=== PATIENT | male | born 1940 | race Caucasian/White ===

== ENCOUNTER 2016-09-13 12:00 | Inpatient (IN) | payer OTHER ==
--- NOTE | 2016-09-13 12:22 | EDPHY ---
H & P Stated Complaint: Sent here for further eval pleural effusion Time Seen by Provider: 09/13/16 12:20 HPI/ROS: CHIEF COMPLAINT: Pleural effusion on x-ray HISTORY OF PRESENT ILLNESS: 76-year-old male with no history of malignancy, no history of chronic pulmonary disease, saw his primary care provider this morning for complaints of 10 days of progressive dyspnea without chest pain. Started approximately 10 days ago with URI symptoms have by enlarged resolved however his dyspnea continues and is progressive. He is able to walk approximately 10 feet before taking a rest. No chest pain. No syncope or near syncope. No back or flank pain. No abdominal pain. No peripheral edema or discoloration. No fever or chills. PRIMARY CARE PROVIDER: Pedro REVIEW OF SYSTEMS: A ten point review of systems was performed and is negative with the exception of the items mentioned in the HPI PAST MEDICAL & SURGICAL HISTORY: No history of malignancy, chronic pulmonary disease, coronary artery disease. 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 SOCIAL HISTORY: Quit smoking 40 years ago PHYSICAL EXAM (Prior to examination, patient consented to physical exam, hands were washed and my usual and customary physical exam procedures followed) 1) GENERAL: Well-developed, well-nourished, alert and oriented. Appears to be in no acute distress. 2) HEAD: Normocephalic, atraumatic 3) HEENT: Pupils equal, round, reactive to light bilaterally. Sclera anicteric. Nasopharynx, oropharynx, clear, no lesions. Ears bilaterally with normal tympanic membranes. 4) NECK: Full range of motion, no meningeal signs. 5) LUNGS: Blunted lung sounds right lower lobe 6) HEART: Regular rate and rhythm, no murmur, no heave, no gallop. 7) ABDOMEN: No guarding, no rebound, no focal tenderness, negative McBurney's, negative Cummings's, negative Rovsing's, negative peritoneal sign, 8) MUSCULOSKELETAL: Moving all extremities, no focal areas of tenderness, no obvious trauma. No peripheral edema or discoloration. 9) BACK: No CVA tenderness, no midline vertebral tenderness, no fluctuance, no step-off, no obvious trauma, no visual or palpable abnormality. 10) SKIN: No rash, no petechiae. 11) Psychiatric: Patient is oriented X 3, there is no agitation. DIFFERENTIAL DIAGNOSIS: in no particular include but limited to malignancy, infectious etiology, pulmonary embolus - Personal History Current Tetanus Diphtheria and Acellular Pertussis (TDAP): Yes - Medical/Surgical History Other PMH: HTN, macular degeneration - Social History Smoking Status: Former smoker Constitutional: Initial Vital Signs Temperature (C) 36.9 C 09/13/16 12:05 Heart Rate 96 09/13/16 12:05 Respiratory Rate 18 09/13/16 12:05 Blood Pressure 129/79 H 09/13/16 12:05 O2 Sat (%) 89 L 09/13/16 12:05 O2 Delivery Mode Room Air O2 (L/minute) 4 Allergies/Adverse Reactions: No Known Allergies Allergy (Verified 09/13/16 12:15) Home Medications: Medication Instructions Recorded Aspirin [Aspirin 81mg (*)] 81 mg PO DAILY 09/13/16 Atorvastatin Calcium [Lipitor 40 40 mg PO 09/13/16 mg (*)] Hydrochlorothiazide [HCTZ (*)] 25 mg PO DAILY 09/13/16 Lisinopril [Zestril 10 mg (*)] 10 mg PO 09/13/16 Losartan Potassium [Cozaar 50 mg 50 mg PO 09/13/16 (*)] Medical Decision Making - Diagnostics Imaging: Chest, Two Views - September 13, 2016 at 1050 hours History: Dyspnea, J18.9, R09.02 Comparison: May 2009. Findings: Cardiac silhouette is within normal range. Opacification of 70% of the right hemithorax with a large right pleural effusion. Left lung is clear. No pneumothorax. Impression: 1. Large right pleural effusion. 2. Recommend CT chest with contrast enhancement for further evaluation. Findings and recommendations discussed with Dr. Katt Rodas on September 13, 2016 at 1106 hours. Final report concurs with initial preliminary interpretation. Dictated By: Marcio Mendez images reviewed by myself ED Course/Re-evaluation: 12:28 p.m.: Discussed case Dr. Ankit Valentino in the ER. Phone consultation with hospitalist Umm, admit to Dr. Arango. Will obtain CT and order thoracentesis from the emergency department 12:37 p.m.: Phone consultation with interventional radiologist Dr. Carpenter regarding thoracentesis Departure - Departure Disposition: [facility] Inpatient Acute Clinical Impression: Hypoxemia, Recurrent right pleural effusion Condition: Fair
[2016-09-13] MEDS ORDERED: IOPAMIDOL (ISOVUE 370) 100 ML BTL IV ONE (12:38)
[2016-09-13 12:52] LABS: % IMMATURE GRANULYOCYTES 0.3 % (0.0-1.1); ABSOLUTE IMMATURE GRANULOCYTES 0.03 10^3/uL (0.00-0.10); ADD DIFF? NO; ADD MORPH? NO; ADD SCAN? NO; ATYPICAL LYMPHOCYTE FLAG 0 (0-99); FRAGMENT RBC FLAG 0 (0-99); HEMATOCRIT 51.3 % (40.0-51.0); HEMOGLOBIN 17.4 g/dL (13.7-17.5); LEFT SHIFT FLG 0 (0-99); LIPEMIA HEMOLYSIS FLAG 90 (0-99); MEAN CELL HEMOGLOBIN CONCENTR. 33.9 g/dL (32.4-36.7); MEAN CELL VOLUME 85.5 fL (81.5-99.8); MEAN PLATELET VOLUME 10.8 fL (8.7-11.7); PLATELET CLUMPS FLAG 0 (0-99); PLATELET COUNT 232 10^3/uL (150-400); RED CELL DISTRIBUTION WIDTH 13.2 % (11.5-15.2)
--- NOTE | 2016-09-13 12:52 | CPEKG ---
Heart Rate: 90 RR Interval: 667 P-R Interval: 144 QRSD Interval: 152 QT Interval: 392 QTC Interval: 480 P Mccaulley: 76 QRS Mccaulley: -25 T Wave Mccaulley: 53 EKG Severity - ABNORMAL ECG - EKG Impression: SINUS RHYTHM EKG Impression: RBBB AND LAFB Electronically Signed By: Mary Lou Novoa 13-Sep-2016 23:17:54
[2016-09-13] MEDS ORDERED: NA BICARBONATE 50 MEQ/50 ML VIAL ONE (13:03)
[2016-09-13] MEDS ORDERED: LIDOCAINE 1% 30 ML SDV ONE (13:03)
[2016-09-13 13:10] LABS: ANION GAP 11 mEq/L (8-16); CALCIUM 9.9 mg/dL (8.5-10.4); CARBON DIOXIDE 30 mEq/l (22-31); CHLORIDE 98 mEq/L (97-110); CREATININE 0.9 mg/dL (0.7-1.3); GLOMERULAR FILTRATION RATE > 60; GLUCOSE 147 mg/dL (70-100); LACTATE DEHYDROGENASE 319 IU/L (313-618); POTASSIUM 3.4 mEq/L (3.5-5.2); SODIUM 139 mEq/L (134-144)
[2016-09-13 13:20] LABS: INR 0.99 (0.83-1.16); TROPONIN I < 0.012 ng/mL (0-0.034)
[2016-09-13 13:44] LABS: APTT 28.1 SEC (23.0-38.0)
[2016-09-13 15:45] LABS: LD, PLEURAL FLUID 1170 IU/L
[2016-09-13] MEDS ORDERED: oxyCODONE IR 5 MG TAB PO PRN (16:50)
[2016-09-13] MEDS ORDERED: ONDANSETRON 4 MG/2 ML VIAL IVP PRN (16:50)
[2016-09-13] MEDS ORDERED: ACETAMINOPHEN 325 MG TAB PO PRN (16:50)
[2016-09-13] MEDS ORDERED: PROTOCOL POTASSIUM 1 DOSE MISC PRN (16:51)
[2016-09-13] MEDS: AZITHROMYCIN IV 500 MG in D5W 250 ML IV SCH (17:24)
--- NOTE | 2016-09-13 17:24 | GHP ---
[f rep st] HISTORY AND PHYSICAL DATE OF ADMISSION: 09/13/2016 CHIEF COMPLAINT: Shortness of breath. HISTORY: The patient is a 76-year-old male, who has noticed shortness of breath for the last week a nd a half. Initially started as nasal congestion, then went into some chest congestion and has been going back and forth between these 2 sites. He has had minimal cough of clear, but mostly nonprodu ctive. No fever. Shortness of breath has continued to worsen, got quite severe prompting physician visit today. He is already feeling much better after getting thoracentesis straight from the [facility] en[facility] room. He denies any chest pain. He denies any weight loss. There have been no night sweats. PAST MEDICAL HISTORY: 1. 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 2. Hypertension. 3. Glaucoma. 4. Macular degeneration. PAST SURGICAL HISTORY: 1. Tonsillectomy. 2. Bilateral total knee arthroplasty. MEDICATIONS: Please see computer record for full detailed list. ALLERGIES: No known drug allergies. SOCIAL HISTORY: Quit smoking 40 years ago. He drinks 1 alcoholic beverage per night. He lives wit h his . He is retired from [employer]. REVIEW OF SYSTEMS: Complete review of systems obtained. Review of systems is negative regarding co nstitutional, HEENT, GI, pulmonary, cardiovascular, , hematology, skin, musculoskeletal, endocrine , psychiatric, except for positives as noted in the HPI. FAMILY HISTORY: Reviewed, noncontributory to presenting complaint. PHYSICAL EXAMINATION: GENERAL: Well-developed, well-nourished male, in no acute distress. VITAL S IGNS: Temperature is 36.9, pulse 96, blood pressure 129/79, saturating 98% on 4 L. EYES: Normal c onjunctivae. Pupils equal and reactive to light. ENT: Normal ears and nose. Hearing intact. Nor mal teeth. Oropharynx moist. NECK: Trachea midline. No thyromegaly. CHEST: Normal respiratory effort. Lungs are clear to auscultation bilaterally. CARDIOVASCULAR SYSTEM: Regular rate and rhyt hm. No murmur. No lower extremity edema. ABDOMEN: Soft, nontender. No hepatosplenomegaly. SKIN : Warm, dry, intact. No rash. MUSCULOSKELETAL: No cyanosis or clubbing. Strength 5/5 in upper a nd lower extremities. NEUROLOGIC: Cranial nerves intact. Normal sensation to light touch. PSYCHI ATRIC: Alert and oriented x3. Normal mood and affect. Normal judgment and insight. Normal memory . LABS: White count 9.46, hematocrit 51.3, platelets 232. Sodium 139, potassium 3.4, chloride 98, bi carb 30, BUN 23, creatinine 0.9, glucose 197. Troponins negative. EKG viewed by me. My personal i nterpretation is normal sinus rhythm. Right bundle branch block. Chest x-ray shows a large right p leural effusion. CT angiogram of the chest shows no CT for PE, large right effusion. ASSESSMENT AND PLAN: 1. Large right-sided pleural effusion. This is concerning for a malignancy versus empyema due to u nderlying pneumonia. His very low pH may warrant a chest tube if he reaccumulates fluid. I have sp sparkle with Dr. Valerio and Pulmonary Medicine will see him in the morning. We will check a CT scan of the chest tomorrow morning post thoracentesis to see if we may get a better view of the underlying p arenchyma and also assess for any residual fluid. Cytology and culture are pending. 2. Hypertension. Will continue home medications. CODE STATUS: Full. ADMISSION STATUS: 1. Will admit to inpatient. As he is complex, anticipate greater than 2 midnights for diagnosis an d stabilization. 2. DVT prophylaxis. Will initiate Lovenox once all possible procedures have been initiated. /[id number]/MODL
[2016-09-13] MEDS ORDERED: ATORVASTATIN CALCIUM 20 MG TAB PO SCH ×2 (18:00→18:45)
[2016-09-13 18:39] LABS: POTASSIUM 3.6 mEq/L (3.5-5.2)
[2016-09-13] MEDS: LOSARTAN POTASSIUM 50 MG TAB PO SCH (19:42)
[2016-09-13] MEDS ORDERED: POTASSIUM CL 10 MEQ TAB PO ONE (20:10)
[2016-09-13] MEDS ORDERED: LATANOPROST 0.005% 2.5 ML OPHT DROPS EACHEYE SCH (21:00)
[2016-09-14 05:46] LABS: % IMMATURE GRANULYOCYTES 0.3 % (0.0-1.1); ABSOLUTE IMMATURE GRANULOCYTES 0.03 10^3/uL (0.00-0.10); ADD DIFF? NO; ADD MORPH? NO; ADD SCAN? NO; ATYPICAL LYMPHOCYTE FLAG 0 (0-99); FRAGMENT RBC FLAG 0 (0-99); HEMOGLOBIN 16.5 g/dL (13.7-17.5); LEFT SHIFT FLG 0 (0-99); LIPEMIA HEMOLYSIS FLAG 80 (0-99); MEAN CELL HEMOGLOBIN 29.8 pg (27.9-34.1); MEAN CELL HEMOGLOBIN CONCENTR. 33.7 g/dL (32.4-36.7); MEAN CELL VOLUME 88.4 fL (81.5-99.8); MEAN PLATELET VOLUME 11.3 fL (8.7-11.7); PLATELET CLUMPS FLAG 0 (0-99); PLATELET COUNT 203 10^3/uL (150-400); RED BLOOD CELL COUNT 5.54 10^6/uL (4.40-6.38); RED CELL DISTRIBUTION WIDTH 13.2 % (11.5-15.2)
[2016-09-14 06:07] LABS: ALANINE AMINOTRANSFERASE 30 IU/L (21-72); ALBUMIN 3.1 g/dL (3.5-5.0); ALKALINE PHOSPHATASE 68 IU/L (38-126); ANION GAP 10 mEq/L (8-16); ASPARTATE AMINOTRANSFERASE 26 IU/L (17-59); BILIRUBIN,TOTAL 0.8 mg/dL (0.1-1.4); BILIRUBIN-CONJUGATED 0.4 mg/dL (0.0-0.5); BILIRUBIN-UNCONJUGATED 0.4 mg/dL (0.0-1.1); CALCIUM 9.2 mg/dL (8.5-10.4); CARBON DIOXIDE 29 mEq/l (22-31); CHLORIDE 100 mEq/L (97-110); CREATININE 0.9 mg/dL (0.7-1.3); GLOMERULAR FILTRATION RATE > 60; GLUCOSE 102 mg/dL (70-100); LACTATE DEHYDROGENASE 401 IU/L (313-618); SODIUM 139 mEq/L (134-144); TOTAL PROTEIN 5.6 g/dL (6.3-8.2)
[2016-09-14] MEDS ORDERED: amLODIPine BESYLATE 5 MG TAB PO SCH (09:00)
[2016-09-14] MEDS ORDERED: HYDROCHLOROTHIAZIDE 25 MG TAB PO SCH (09:00)
[2016-09-14] MEDS ORDERED: ENOXAPARIN 40 MG/0.4 ML SYR SC SCH (09:00)
[2016-09-14] MEDS: LOSARTAN POTASSIUM 50 MG TAB PO SCH (09:09)
[2016-09-14] MEDS: AZITHROMYCIN IV 500 MG in D5W 250 ML IV SCH (09:53)
[2016-09-14 12:19] VITALS: BP 92/57; PULSE 86; RESP 16; TEMP 97.8
--- NOTE | 2016-09-14 13:55 | HOSPPROG ---
Hospitalist Progress Note Assessment/Plan: # acute large right pleural effusion- etiology at this time unclear possible parapneumonic versus malignant- exudative on light's criteria pl protein 4.1 status post large volume thoracentesis on admission- symptoms markedly improved chest x-ray( personally reviewed and interpreted) large right-sided effusion - the continue empiric antibiotic - pleural fluid cytology pending - the repeat CT plan for today - pulmonary consulted on admission # acute hypoxic respiratory failure secondary to pleural effusion and possible underlying intra parenchymal process oxygen saturations 90% on 2 L - empiric treatment of pneumonia - repeat imaging today # hypertension- SBP 90's - hold HCTZ and losartan for now # proph - lovenox # diet - regular # disposition - > 2MN as requiring diagnostic workup for pleural effusion and IV antibiotics I have discussed the case with RN- plan for repeat CT this afternoon Subjective: breathing much more comfortably Objective: Vital Signs Temp Pulse Resp BP Pulse Ox 36.6 C 86 16 92/57 L 90 L 09/14/16 12:00 09/14/16 12:00 09/14/16 12:00 09/14/16 12:00 09/14/16 12:00 Microbiology 09/13/16 14:05 Gram Stain - Final Thoracic Fluid - Aspirate Laboratory Results 09/14/16 04:23 09/14/16 04:23 09/13/16 09/14/16 09/15/16 05:59 05:59 05:59 Intake Total 550 Balance 550 PT 13.0 SEC (12.0-15.0) 09/13/16 12:40 INR 0.99 (0.83-1.16) 09/13/16 12:40 - Physical Exam Constitutional: appears nourished Eyes: anicteric sclera Ears, Nose, Mouth, Throat: moist mucous membranes Cardiovascular: regular rate and rhythym Respiratory: no respiratory distress, reduced air movement Gastrointestinal: normoactive bowel sounds, soft, non-tender abdomen Genitourinary: no bladder fullness Skin: warm Musculoskeletal: No asymmetric calves Neurologic: AAOx3 Psychiatric: interacting appropriately, not anxious Lymph, Heme, Immunologic: no cervical LAD ICD10 Worksheet Patient Problems: Problems Problem Status Onset Hypoxemia Acute Recurrent right pleural effusion Acute
[2016-09-14 14:24] VITALS: O2SAT 85
--- NOTE | 2016-09-14 18:57 | GDS ---
[f rep st] DISCHARGE SUMMARY DISCHARGE DIAGNOSES: Include: 1. Acute large right pleural effusion. 2. Acute hypoxic respiratory failure, secondary to pleural effusion. 3. Hypertension. HISTORY OF PRESENT ILLNESS: This is a 76-year-old male, with limited past medical history, who pres ents to the emergency department with severe shortness of breath. For details of patient's initial presentation, please see the history and physical dated 09/13/2016. CONSULTATIVE SERVICES: Include Pulmonary Critical Care. PROCEDURES: 1. On 09/13/2016, patient had a large volume thoracentesis, ultrasound guided. 2. 09/14/2016, patient had a repeat CT chest imaging that shows affective drainage of his pleural e ffusion. Mild residual loculated effusions on the right, with persistent atelectasis. No obvious n odules or infiltrates are visualized. HOSPITAL COURSE: By issue: 1. Acute large volume right-sided pleural effusion. Etiology at this time is unclear. Suspected t o be either parapneumonic, as transudative on pleural fluid analysis, or potentially malignant. Cyt ology has been sent. Repeat imaging does not further clarify the possible etiology of this effusion at this time. The patient's oxygen saturations are mid 90s on 2 L of oxygen. After discussion wit h Dr. Valerio, patient will be discharged to complete a full course of antibiotics for community-acqui red pneumonia, and will follow in the Pulmonary Clinic in 3-4 weeks after repeat chest x-ray imaging for discussion of cytology analysis and clinical response to therapy. The patient will be discharg ed on 2 L of supplemental oxygen prior to discharge. 2. Acute hypoxic respiratory failure, secondary to pleural effusion. Again, patient is empirically being treated for community-acquired pneumonia. He has been instructed to follow with his [facility] primary care provider after completion of his antibiotic course for oxygen saturation checks. It is possible that he can discontinue oxygen supplementation prior to his pulmonary appointment. 3. Hypertension. Patient's blood pressures did fluctuate a bit during his hospital stay. He was g iven his normal home medications with adequate control. We will continue these, as long as his oral intake is normal in the outpatient setting. DISCHARGE MEDICATIONS: Please reference medication reconciliation printed on 09/14/2016. PENDING STUDIES: At the time of this dictation include: 1. Blood cultures drawn 09/13/2016, which are pending, no growth to date. 2. 09/13/2016, thoracic fluid aspirate was sent for culture, also pending, no growth to date. FOLLOWUP APPOINTMENTS: Include: 1. With Dr. Mario Valerio in 3-4 weeks after chest x-ray imaging for cytology results and clinical foll owup. 2. With primary care in the next 7-10 days for post disposition followup, and oxygen saturation natalia cks post completion of his antibiotic therapy. I spent greater than 30 minutes in the planning and coordination of this discharge. /[id number]/MODL
--- NOTE | 2016-09-14 20:42 | GCON ---
[f rep st] CONSULTATION PULMONARY CONSULTATION DATE OF CONSULTATION: 09/14/2016 The patient is a 76-year-old male, without much past medical history, who has complained of dyspnea over the last 7-10 days. He started with some nasal congestion and then had some chest congestion, but denies any significant cough and no fever. His breathing got worse over the course of that yesica od of time and he saw a physician yesterday, was sent to the emergency department where a chest x-ra y showed a very large pleural effusion. CT scan was subsequently done that showed no evidence of pu lmonary embolism and he underwent a thoracentesis that revealed a pH of 7.0, with a protein of 4.1, and LDH of 1170, and a glucose of 121. It was pink-looking fluid as it was removed. The red cell c ount was only 9720 and the white cell count was 6173, with a differential of 59% neutrophils, 36% ly mphocytes. He denies any unanticipated weight loss. His appetite has been normal. There are no malignancies t hat run in his family history. He has not been exposed to asbestos before, but he did do research w ith other types of potentially respiratory fibers, having done some work with [employer] in the is past, but felt that he had not been exposed to any fibers small enough to get into his lungs. He does not have any cardiac history. There is no recent trauma. He has never had any invasion o f his pleural space. He does admit to osteoarthritis, but not rheumatoid arthritis, and has no know n connective tissue disease. REVIEW OF SYSTEMS: Otherwise, review of systems is negative. PAST MEDICAL HISTORY: Includes: 1. Legionnaires disease presumptively in 1970. 2. Hypertension. 3. Glaucoma. 4. Macular degeneration. PAST SURGICAL HISTORY: Includes tonsillectomy, bilateral total knee arthroplasties. SOCIAL HISTORY: He was a significant smoker, but quit some 40 years ago. Does have minor alcohol, but no alcohol-related illnesses, and no recreational drugs. FAMILY HISTORY: Noncontributory at this time. CURRENT MEDICATIONS: Include Tylenol, Norvasc, Lipitor, Zithromax, ceftriaxone, Lovenox, hydrochlor othiazide, Cozaar, morphine, oxycodone. PHYSICAL EXAMINATION: VITAL SIGNS: His blood pressure is 122/79, heart rate of 92, respirations 18 , oxygen saturation was 85% on room air, 91% on 1 L. GENERAL: He was awake and alert, very pleasan t man in no apparent distress, able to speak in full sentences without using accessory muscles for b reathing. HEENT: Pupils equally round, reactive to light. Nonicteric and noninjected. Mucous mem branes are moist without erythema or exudate. NECK: Supple without adenopathy. There is no jugula r vein distention. PULMONARY: Breath sounds were remarkably clear to auscultation. I do not detec t any wheezes or pleural rubs. HEART: Regular rate and rhythm without murmur, rub, or gallop. ABD OMEN: Soft, nontender, nondistended, without hepatosplenomegaly. EXTREMITIES: Showed no clubbing, cyanosis, or edema. NEUROLOGIC: Nonfocal, including cranial nerves and deep tendon reflexes. SKI N: Warm and dry without evidence of rash. OBJECTIVE DATA: Includes a CT scan, as described above. There is no significant adenopathy or obst ructing masses that could be seen. His post thoracentesis CT scan showed areas of small loculation in the periphery, but no thickened pleura, no obvious masses. There was still some minor atelectasi s, particularly in the medial part of the right lower lobe, but strong air bronchograms in this carine on. His white count was 9.5, with hematocrit of 49; it was 51 when he came in. Platelets of 203. Basic metabolic panel was normal. Serum total protein was 5.6, serum total LDH was [address] eural cytology is still pending at this time. Flu was negative. ASSESSMENT/PLAN: Idiopathic pleural effusion with a low pH of 7.0. The differential here does incl ude a malignancy, but also would include some connective tissue disease, such as lupus or rheumatoid arthritis. At this point, I think he is otherwise stable to go home and he can see me back in [facility] t a month, and we will follow up on the cytology and repeat a chest x-ray at that time to see if it reaccumulates. Most importantly, I do not believe this is an empyema, though treatment for a commun ity-acquired pneumonia is certainly reasonable, and finishing a course of antibiotics I think makes sense, though I do not believe that prolonged antibiotics are required at this time. I discussed this in great detail with the patient, as well as Dr. Thurston. /[id number]/MODL
[2016-09-15] MEDS ORDERED: ENOXAPARIN 40 MG/0.4 ML SYR SC SCH (09:00)
== END 2016-09-14 18:16 | disposition home or self-care (01) | DRG 186 ==
LOC: EDSTATUS 12:00 → F3E 16:43
PROVIDERS: ADMIT Hospitalist; ATTEND Hospitalist
PROC: 0W993ZZ Drainage of Right Pleural Cavity, Percutaneous Approach (ICD-10-PCS; principal; 2016-09-13)
DX: J90 Pleural effusion, not elsewhere classified (principal); J96.01 Acute respiratory failure with hypoxia; I10 Essential (primary) hypertension; Z87.891 Personal history of nicotine dependence; Z96.653 Presence of artificial knee joint, bilateral
CPT/HCPCS: 71020-PO; J0456; J0696; Q9967

== ENCOUNTER 2016-10-01 08:40 | Inpatient (IN) | payer OTHER ==
--- NOTE | 2016-10-01 08:49 | EDPHY ---
H & P HPI/ROS: CHIEF COMPLAINT: Shortness of breath. HISTORY OF PRESENT ILLNESS: The patient is a 76-year-old male with a history of hypertension and right pleural effusion who presents with shortness of breath. He was admitted 09/13/2016 for right pleural effusion. [place] better after thorascentesis and was discharged home. Onset of recurrent SOB 2 days ago. He is now having difficulty walking from his bedroom to the bathroom because of SOB. Associated with generalized weakness and rapid HR. He denies dizziness, lightheadedness, chest pain, or other complaints. No cough or fever. He has no history of atrial fibrillation or atrial flutter. REVIEW OF SYSTEMS: A complete 10-point review of systems was performed and is negative except for those items mentioned in the HPI. Past Medical/Surgical History: Hypertension, macular degeneration, bilateral knee replacements. Social History: Former smoker. Smoking Status: Former smoker Physical Exam: General Appearance: Alert, pleasant, on oxygen, not tachypneic Eyes: Pupils equal and round, no conjunctival pallor or injection ENT, Mouth: Mucous membranes moist Neck: Normal inspection Respiratory: decreased BS on right Cardiovascular: Regular tachycardia Gastrointestinal: Abdomen is soft and non-tender Neurological: A&O, nonfocal exam Skin: Warm and dry, no rash Extremities: normal inspection, no tenderness Psychiatric: Mood and affect normal Constitutional: Initial Vital Signs Temperature (C) 36.8 C 10/01/16 08:43 Heart Rate 150 H 10/01/16 08:43 Respiratory Rate 22 H 10/01/16 08:43 Blood Pressure 140/104 H 10/01/16 08:43 O2 Sat (%) 85 L 10/01/16 08:43 O2 Delivery Mode Nasal Cannula O2 (L/minute) 5 Allergies/Adverse Reactions: No Known Allergies Allergy (Verified 10/01/16 08:40) Home Medications: Medication Instructions Recorded Amlodipine Besylate [Norvasc] 5 mg PO HS 09/13/16 Aspirin [Aspirin 81mg (*)] 81 mg PO HS 09/13/16 Atorvastatin Calcium [Lipitor 20 20 mg PO HS 09/13/16 mg (*)] C/E/Zn/Cu/OM3/DHA/EPA/LUT/ZEAX 1 each PO BID 09/13/16 [Preservision Areds 2 Softgel] Hydrochlorothiazide [HCTZ (*)] 25 mg PO DAILY 09/13/16 Latanoprost 0.005% [Xalatan 0.005% 1 drops EACHEYE HS 09/13/16 (*)] Losartan Potassium [Cozaar 50 mg 50 mg PO BID 09/13/16 (*)] Herbals/Supplements -Info Only 1 each PO DAILY 10/01/16 [place]-3 Fatty Acids [Fish Oil 1000 1,000 mg PO DAILY 10/01/16 mg (*)] Medical Decision Making - Diagnostics EKG Interpretation: EKG interpreted by me reveals SVT, rate 150. Imaging: Imaging Impressions Chest X-Ray 10/01/16 08:51 Impression: 1. Moderate to large right pleural effusion has reaccumulated with adjacent atelectasis. ED Course/Re-evaluation: 76-year-old male with a history of hypertension and recent right-sided pleural effusion presents today to the ED for 2 days of shortness of breath. He was discharged 09/14 after right-sided pleural effusion and acute respiratory failure. He had a thoracentesis in the hospital and had 2.5 liters of fluid drained. On arrival his heart rate is 150. An EKG was ordered that shows supraventricular tachycardia. Chest x-ray obtained. An IV was established and labs ordered. compliance monitor placed. 0920: 6mg IV Adenosine administered. compliance monitor reveals probable Aflutter. 12mg IV adenosine administered. His heart rate fell to 60 and revealed atrial flutter before returning to 150. 10mg IV Diltiazem administered. Feels much better after IV Diltiazem; HR 110-120. Patient to have chest x-ray taken now. I independently reviewed the patient's chest x-ray on the PACS system. My interpretation: Large right pleural effusion. Please see Imaging section for radiologist report. Ultrasound-guided thoracentesis ordered. Prior pleural fluid pathology reviewed and reveals atypical reactive cells. 2139: Consulted with Kate Mccullough, hospitalist. She accepts admission for Dr. Sauceda. I reviewed the patient's laboratory studies. D-dimer is markedly elevated at 5.55. The patient last had a chest CT 09/14/2016. I reviewed the results of this study. 1003: Consulted with Kate Mccullough regarding d-dimer. Likely secondary to pleural effusion; r/o PE. Pt will undergo thoracentesis 1st and then will proceed with CT pulmonary angiogram. Pt went directly to the floor after thoracentesis, so no CT scan performed. I spent a total of 40 minutes of critical care time including but not limited to obtaining history, performing a physical exam, bedside monitoring of interventions, collecting and interpreting tests and discussion with consultants but not including time spent performing procedures. Differential Diagnosis: The differential diagnosis for the patient's shortness of breath and hypoxemia included but was not limited to pneumonia, myocardial infarction, acute mountain sickness, high altitude pulmonary edema, congestive heart failure, and pulmonary embolus. - Data Points Laboratory Results: Laboratory Results 10/01/16 09:16 10/01/16 09:16 10/01/16 10/01/16 10/01/16 09:16 09:16 09:16 WBC 8.48 10^3/uL 10^3/uL (3.80-9.50) RBC 5.73 10^6/uL 10^6/uL (4.40-6.38) Hgb 16.8 g/dL g/dL (13.7-17.5) Hct 50.6 % % (40.0-51.0) MCV 88.3 fL fL (81.5-99.8) MCH 29.3 pg pg (27.9-34.1) MCHC 33.2 g/dL g/dL (32.4-36.7) RDW 13.0 % % (11.5-15.2) Plt Count 442 10^3/uL H 10^3/uL (150-400) MPV 10.4 fL fL (8.7-11.7) Neut % (Auto) 72.3 % % (39.3-74.2) Lymph % (Auto) 17.3 % % (15.0-45.0) [place] % (Auto) 7.3 % % (4.5-13.0) Eos % (Auto) 2.1 % % (0.6-7.6) Baso % (Auto) 0.8 % % (0.3-1.7) Nucleat RBC Rel Count 0.0 % % (0.0-0.2) Absolute Neuts (auto) 6.12 10^3/uL 10^3/uL (1.70-6.50) Absolute Lymphs (auto) 1.47 10^3/uL 10^3/uL (1.00-3.00) Absolute Monos (auto) 0.62 10^3/uL 10^3/uL (0.30-0.80) Absolute Eos (auto) 0.18 10^3/uL 10^3/uL (0.03-0.40) Absolute Basos (auto) 0.07 10^3/uL 10^3/uL (0.02-0.10) Absolute Nucleated RBC 0.00 10^3/uL 10^3/uL (0-0.01) Immature Gran % 0.2 % % (0.0-1.1) Immature Gran # 0.02 10^3/uL 10^3/uL (0.00-0.10) PT 13.3 SEC SEC (12.0-15.0) INR 1.02 (0.83-1.16) APTT 27.5 SEC SEC (23.0-38.0) D-Dimer 5.55 ug/mLFEU H ug/mLFEU (0.00-0.50) Sodium 138 mEq/L mEq/L (134-144) Potassium 3.7 mEq/L mEq/L (3.5-5.2) Chloride 98 mEq/L mEq/L (97-110) Carbon Dioxide 31 mEq/l mEq/l (22-31) Anion Gap 9 mEq/L mEq/L (8-16) BUN 17 mg/dL mg/dL (7-23) Creatinine 0.9 mg/dL mg/dL (0.7-1.3) Estimated GFR > 60 Glucose 222 mg/dL H mg/dL (70-100) Calcium 9.5 mg/dL mg/dL (8.5-10.4) Troponin I < 0.012 ng/mL ng/mL (0-0.034) NT-Pro-B Natriuret Pep 375 pg/mL pg/mL (0-450) Medications Given: Discontinued Medications Adenosine (Adenosine) 6 mg IVP EDNOW ONE Stop: 10/01/16 09:16 Last Admin: 10/01/16 09:20 Dose: 6 mg Adenosine (Adenosine) 12 mg IVP EDNOW ONE Stop: 10/01/16 10:01 Last Admin: 10/01/16 09:25 Dose: 12 mg Diltiazem HCl (Cardizem 25 Mg/5 Ml Vial) 10 mg IVP EDNOW ONE Stop: 10/01/16 09:29 Last Admin: 10/01/16 09:30 Dose: 10 mg Diltiazem HCl 125 mg/ Dextrose 125 mls @ 0 mls/hr IV EDNOW ONE; As Directed PRN Reason: Protocol Stop: 10/01/16 09:29 Last Admin: 10/01/16 09:57 Dose: 125 mls Departure - Departure Disposition: [facility] Inpatient Acute Clinical Impression: Pleural effusion, right Atrial flutter Qualifiers: Atrial flutter type: unspecified Qualified Code(s): I48.92 - Unspecified atrial flutter Condition: Fair Report Scribed for: Nuvia Brewster Report Scribed by: Elian Westfall Date of Report: 10/01/16 Time of Report: 08:48 Physician Review and Approval Statement: 10/01/16 08:49 Portions of this note were transcribed by a medical staff assistant. I personally performed a history, physical exam, medical decision making, and confirmed accuracy of information the transcribed note.
--- NOTE | 2016-10-01 08:57 | CPEKG ---
Heart Rate: 149 RR Interval: 403 P-R Interval: 56 QRSD Interval: 142 QT Interval: 332 QTC Interval: 523 P [place]: 0 QRS [place]: 6 T Wave [place]: 41 EKG Severity - ABNORMAL ECG - EKG Impression: Atrial flutter EKG Impression: RIGHT BUNDLE BRANCH BLOCK Electronically Signed By: Nuvia Brewster 01-Oct-2016 13:42:52
[2016-10-01] MEDS ORDERED: ADENOSINE 6 MG/2 ML VIAL ONE (09:15)
[2016-10-01] MEDS ORDERED: ADENOSINE 6 MG/2 ML VIAL IVP ONE ×2 (09:15→10:00)
[2016-10-01 09:24] LABS: % IMMATURE GRANULYOCYTES 0.2 % (0.0-1.1); ABSOLUTE IMMATURE GRANULOCYTES 0.02 10^3/uL (0.00-0.10); ADD DIFF? NO; ADD MORPH? NO; ADD SCAN? NO; ATYPICAL LYMPHOCYTE FLAG 0 (0-99); FRAGMENT RBC FLAG 0 (0-99); HEMATOCRIT 50.6 % (40.0-51.0); HEMOGLOBIN 16.8 g/dL (13.7-17.5); LEFT SHIFT FLG 0 (0-99); LIPEMIA HEMOLYSIS FLAG 80 (0-99); MEAN CELL HEMOGLOBIN 29.3 pg (27.9-34.1); MEAN CELL HEMOGLOBIN CONCENTR. 33.2 g/dL (32.4-36.7); MEAN CELL VOLUME 88.3 fL (81.5-99.8); MEAN PLATELET VOLUME 10.4 fL (8.7-11.7); PLATELET CLUMPS FLAG 0 (0-99); PLATELET COUNT 442 10^3/uL (150-400); RED BLOOD CELL COUNT 5.73 10^6/uL (4.40-6.38)
[2016-10-01] MEDS ORDERED: DILTIAZEM 25 MG/5 ML VIAL IVP ONE ×2 (09:27→09:28)
[2016-10-01] MEDS ORDERED: DILTIAZEM 125 MG in D5W 125 ML IV ONE (09:28)
[2016-10-01 09:41] LABS: ANION GAP 9 mEq/L (8-16); CALCIUM 9.5 mg/dL (8.5-10.4); CARBON DIOXIDE 31 mEq/l (22-31); CHLORIDE 98 mEq/L (97-110); CREATININE 0.9 mg/dL (0.7-1.3); GLOMERULAR FILTRATION RATE > 60; GLUCOSE 222 mg/dL (70-100); POTASSIUM 3.7 mEq/L (3.5-5.2); SODIUM 138 mEq/L (134-144)
[2016-10-01 09:54] LABS: TROPONIN I < 0.012 ng/mL (0-0.034)
[2016-10-01 10:24] LABS: INR 1.02 (0.83-1.16); PROTIME(PATIENT) 13.3 SEC (12.0-15.0)
[2016-10-01 10:25] LABS: APTT 27.5 SEC (23.0-38.0)
[2016-10-01] MEDS ORDERED: ONDANSETRON DISINTEGRATING 4 MG TAB PO PRN (12:51)
[2016-10-01] MEDS ORDERED: ONDANSETRON 4 MG/2 ML VIAL IVP PRN (12:51)
--- NOTE | 2016-10-01 14:08 | CPEKG ---
Heart Rate: 99 RR Interval: 606 QRSD Interval: 148 QT Interval: 412 QTC Interval: 529 QRS [place]: -51 T Wave [place]: 24 EKG Severity - ABNORMAL ECG - EKG Impression: A-FLUTTER W/ PREDOM 3:1 AV BLOCK, A-RATE 300 EKG Impression: RBBB AND LAFB EKG Impression: PROBABLE ANTEROLATERAL INFARCT, OLD EKG Impression: VENTRICULAR RATES HAVE SLOWED IN COMPARISON TO PRIOR Electronically Signed By: Rj Nair 03-Oct-2016 00:50:29
--- NOTE | 2016-10-01 14:14 | GHP ---
[f rep st] HISTORY AND PHYSICAL DATE OF ADMISSION: 10/01/2016 The patient is a pleasant 76-year-old gentleman with a past history of hypertension and glaucoma as well as an admission at the end of August for right-sided pleural effusion. At that time, he had a C TA that was negative for pulmonary embolism, although it was done while he still had a large right p leural effusion limiting its diagnostic ability. He also had a chest CT following drainage showing a residual loculated effusion on the right and persistent atelectasis. His pleural fluid at that ti me had negative cytology for malignancy and is consistent with inflammatory or exudative process. The patient was discharged home with a course of antibiotics for community-acquired pneumonia and he returns today with increased shortness of breath. He has had no lower extremity edema. He has had cough productive of clear sputum. No hemoptysis. He has had no recent hospitalizations, surgeries or prolonged immobilizations such as travel. He takes no hormonal therapy. He has no family histo ry of VTE. In the emergency department, he was found to be tachycardic in the 150s in atrial flutter that becam e apparent with administration of adenosine. He was discharged on oxygen and he has continued to wear it. He has not had chest pain. He does not have a history of heart failure or heart failure symptoms. He does not have known malignancy and he has had up to date cancer screening, per his report. REVIEW OF SYSTEMS: Complete 10-point review of systems conducted negative except as noted in the HP I. PAST MEDICAL HISTORY: 1. Large right exudative pleural effusion of uncertain etiology. 2. 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 3. Hypertension. 4. Glaucoma. 5. Macular degeneration. 6. He has history of tonsillectomy and bilateral total knee arthroplasty. ALLERGIES: He has no known drug allergies. HOME MEDICATIONS: Aspirin, amlodipine, atorvastatin, PreserVision, hydrochlorothiazide, latanoprost , losartan, fish oil. SOCIAL HISTORY: He lives in [place]. He is retired information technology person. He smoked fo r about 10 years. Drinks alcohol 1 or 2 drinks daily. FAMILY HISTORY: Negative for VTE. PHYSICAL EXAM: VITAL SIGNS: Presenting vitals temp 36.8, blood pressure 140/104, pulse 150, breath ing 22 times a minute, 85% on 4 L. Currently, his pulse is in the low 100s, 94% on 5 L. GENERAL: No acute distress, lying flat. HEENT: Sclerae anicteric. Oropharynx clear. Mucous membranes mois t. NECK: Supple without lymphadenopathy, JVD. LUNGS: Clear to auscultation on the left. The rig ht shows diminished to absent breath sounds for the bottom 3/4 of his lung field. There is dullness to percussion throughout most of the right lung field. HEART: S1, S2 without murmurs. It is tach ycardic. ABDOMEN: Soft, nontender, nondistended. LOWER EXTREMITIES: Without edema. Calves are n ontender. SKIN: Without rash. NEUROLOGIC: Nonfocal. LABORATORY DATA: His white count 8.5, hematocrit 50, platelets are 442,000. D-dimer is 5.5. Coags are normal. Sodium 138, potassium 3.7, chloride 98, bicarb 31, BUN 17, creatinine 0.9, glucose 222 . Troponin less than 0.012. His BNP is 375. Pleural fluid study from his previous admission showe d a pH of 7.0, it is red cloudy with 6100 white cells, 9700 red cells, 59% lymphocytes. LDH is elev ated at 1170. He had a rheumatoid factor that is modestly elevated at 12.3 and an KURTIS screen that i s negative. He is influenza negative during a previous admission. Cytology was negative for malign edgar. Chest x-ray interpreted by me shows large right pleural effusion with only about 1/4 of the s uperior lung field available. His EKG interpreted by md shows sinus at 149 with normal axis. There is a right bundle branch block pattern. I reviewed his telemetry in the ER after administration of adenosine and it showed likely atrial flutter with atrial sawtooth rate at 300. I have discussed t he case with Dr. Kaitlynn Brewster. ASSESSMENT/PLAN: A 76-year-old gentleman with recurrent large right pleural effusion and atrial flu tter. 1. Large right pleural effusion. This certainly seems like a classic presentation of pulmonary emb olism. I think it is important to do a CTA after thoracentesis. Thoracentesis is scheduled for tod ay. a. Thoracentesis with pleural fluid studies including cytology. b. CTA of the chest after thoracentesis. c. Bilateral lower extremity Dopplers. d. If venous thromboembolism workup is negative, he needs a VATS with pleural biopsy. 2. Atrial flutter. This is likely secondary to his lung process. He is currently on a diltiazem d rip. We will order an echocardiogram and follow. 3. Hypoxia. This is attributable to his large right pleural effusion. 4. Question pulmonary embolus. See above. 5. Prophylaxis. Pharmacologic prophylaxis indicated. We will start tomorrow. 6. Hypertension. Continue his medications. 7. Glaucoma. Continue his medications. 8. Disposition: Inpatient status. /[id number]/MODL
--- NOTE | 2016-10-01 15:59 | ECHO ---
[id number] + + [id number] : : [place] [address] : : [phone] + Adult Echocardiographic Report + -------+ :Name: LUCAS LEA TStudy Date: 10/01/2016 01:23 PM : : Hospital Admission Number: [id number] Locati on: 211: :: 1940 Gender: Male Height: 71 in : :Age: 76 yrs Race: WH Weight: 225 lb : :Reason For Study: Recurrent large R pleural effusion/Atrial : :flutter BSA: 2.2 meter s2 : + -------+ MMode/2D Measurements \T\ Calculations IVSd: 0.61 cm LVIDd: 4.4 cm EDV(Teich): Ao root diam: LVPWd: 0.58 cm 86.1 ml 4.1 cm LA dimension: 4.8 cm LVLd ap4: 6.9 cm SV(MOD-sp4): EDV(MOD-sp4): 29.0 ml 48.0 ml LVLs ap4: 6.8 cm ESV(MOD-sp4): 19.0 ml EF(MOD-sp4): 60.4 % Normal Measurement Values: + + :LVIDd (3.5-5.7cm) IVSd (0.6-1.1cm) LVPWd (0.6-1.1cm) Aortic Root (2.0-3.7cm)Left Atrium (1.5-4.0cm): :LV Vol(d) (76-115ml) LV Vol(s) (29-48ml) Ejec Fraction (50-65%)PV Doroteo (0.6- 1.2m/s) TV Doroteo (0.4-1.0m/s) : :MV E Doroteo (0.8-1.0m/s)MV A [place] (0.3-1.0m/s)LVOT Dor[place] (0.7-1.2m/s) Asc Ao Doroteo ( 0.9-1.8m/s) : + + Doppler Measurements \T\ Calculations Ao V2 max: 99.1 cm/sec Ao max P.9 mmHg Left Ventricle The left ventricle is normal in size. There is normal left ventricular wall thickness. Ejection Fraction = 55-60%. No regional wall motion abnormalities noted. Right Ventricle The right ventricle is mildly dilated. Atria The left atrium is mildly dilated. Right atrial size is normal. The interatrial septum is intact with no evidence for an atrial septal defect. Mitral Valve Calcified mitral apparatus. There is no evidence of mitral valve prolapse. There is no mitral valve stenosis. There is mild mitral regurgitation. Tricuspid Valve Normal tricuspid valve. There is mild tricuspid regurgitation. Aortic Valve The aortic valve opens well. Mild AV calcification. There is no aortic stenosis. There is no aortic insufficiency. Pulmonic Valve The pulmonic valve is not well visualized. There is no pulmonic valvular regurgitation. Great Vessels The aortic root is normal size. Pericardium/Pleural There is no pericardial effusion. Left pleural effusion. Conclusion A complete two-dimensional transthoracic echocardiogram was performed (2D, M-mode, Doppler and color flow Doppler). Ejection Fraction = 55-60%. The left atrium is mildly dilated. Calcified mitral apparatus. There is mild mitral regurgitation. There is mild tricuspid regurgitation. Mild AV calcification. Left pleural effusion. Final Reading Physician: Jesus Ayala signed on 10/01/2016 03:58 PM Ordering Physician: Momo Sauceda Performed By: Alycia Daily RDCS
[2016-10-01] MEDS ORDERED: IOPAMIDOL (ISOVUE 370) 100 ML BTL IV ONE (18:26)
[2016-10-01 19:15] LABS: LD, PLEURAL FLUID 656 IU/L
[2016-10-01] MEDS: amLODIPine BESYLATE 5 MG TAB PO SCH (20:54)
[2016-10-01] MEDS: PRESERVISION AREDS2 FORMULA EYE VIT 1 EACH PO SCH (20:54)
[2016-10-01] MEDS: ATORVASTATIN CALCIUM 20 MG TAB PO SCH (20:54)
[2016-10-01] MEDS: LOSARTAN POTASSIUM 50 MG TAB PO SCH (20:54)
[2016-10-01] MEDS: LATANOPROST 0.005% 2.5 ML OPHT DROPS EACHEYE SCH (21:01)
[2016-10-02] MEDS ORDERED: DILTIAZEM 125 MG in D5W 125 ML IV SCH (04:00)
[2016-10-02 05:05] LABS: APTT 30.6 SEC (23.0-38.0); INR 1.08 (0.83-1.16); PROTIME(PATIENT) 13.9 SEC (12.0-15.0)
[2016-10-02 05:09] LABS: ANION GAP 8 mEq/L (8-16); CALCIUM 8.9 mg/dL (8.5-10.4); CARBON DIOXIDE 27 mEq/l (22-31); CHLORIDE 102 mEq/L (97-110); CREATININE 0.8 mg/dL (0.7-1.3); GLOMERULAR FILTRATION RATE > 60; GLUCOSE 93 mg/dL (70-100); POTASSIUM 4.1 mEq/L (3.5-5.2); SODIUM 137 mEq/L (134-144)
[2016-10-02] MEDS ORDERED: Herbals/Supplements -Info Only PO SCH (09:00)
[2016-10-02] MEDS: HYDROCHLOROTHIAZIDE 25 MG TAB PO SCH (09:05)
[2016-10-02] MEDS: ENOXAPARIN 40 MG/0.4 ML SYR SC SCH (09:05)
[2016-10-02] MEDS: LOSARTAN POTASSIUM 50 MG TAB PO SCH ×2 (09:05→21:16)
[2016-10-02] MEDS: PRESERVISION AREDS2 FORMULA EYE VIT 1 EACH PO SCH ×2 (09:05→21:16)
[2016-10-02] MEDS: OMEGA-3 FATTY ACIDS 1,000 MG CAP PO SCH (09:06)
[2016-10-02] MEDS ORDERED: ALTEPLASE 2 MG VIAL IVP PRN (09:18)
--- NOTE | 2016-10-02 09:33 | HOSPPROG ---
Hospitalist Progress Note Assessment/Plan: 76 yo M w recurrent exudative pleural effusion pleural effusion: exudate 1. CT angio today 2. VATS if PE workup neg 3. has received course of abx for CAP on last admit 4. chest CT last admit w no e/o CA 5. no trauma history access: picc today a flutter: almost certainly due to pulm process start po dilt proph: [facility] dispo: inpatient Subjective: thoracentesis yesterday. repeat cxr w decreased effusion and no pneumothorax (interp by me). tele: aflutter. access issues for CT angio of chest Objective: Vital Signs Temp Pulse Resp BP Pulse Ox 36.7 C 88 24 H 106/73 92 10/02/16 07:31 10/02/16 07:31 10/02/16 07:31 10/02/16 07:31 10/02/16 07:31 Laboratory Results 10/02/16 03:45 10/01/16 10/02/16 10/03/16 05:59 05:59 05:59 Intake Total 1670 Output Total 800 260 Balance 870 -260 PT 13.9 SEC (12.0-15.0) 10/02/16 03:45 INR 1.08 (0.83-1.16) 10/02/16 03:45 - Physical Exam Constitutional: no apparent distress, appears nourished Eyes: PERRL, anicteric sclera Ears, Nose, Mouth, Throat: moist mucous membranes, hearing normal Cardiovascular: regular rate and rhythym, no murmur, rub, or gallop, No systolic murmur Respiratory: no respiratory distress, no rales or rhonchi, other (crackles and decreased breath sounds at R base although much improved from yesterday. L lung clear) Gastrointestinal: normoactive bowel sounds, soft, non-tender abdomen Genitourinary: no bladder fullness, No beyer in urethra Skin: warm, normal color Musculoskeletal: full muscle strength, no muscle tenderness Neurologic: AAOx3, sensation intact bilaterally ICD10 Worksheet Patient Problems: Problems Problem Status Onset Atrial flutter Acute Pleural effusion, right Acute Hypoxemia Acute Recurrent right pleural effusion Acute
[2016-10-02] MEDS: DILTIAZEM 30 MG TAB PO SCH ×4 (09:53→23:55)
[2016-10-02] MEDS ORDERED: IOPAMIDOL (ISOVUE 370) 100 ML BTL IV ONE (12:05)
--- NOTE | 2016-10-02 16:56 | PDCONSULT ---
Campus Administrator Note: Dwayne is a 76 y/o male readmitted for a recurrent right pleural effusion. He was admitted in late August after he developed a chest cold. He was found to have a large parapneumonic effusion and thoracentesis was performed. He received Ceftriaxone and Azithromycin. Cultures were no growth/though the fluid had a pH of 7.00. He was seen in consultation by Dr. Greg Valerio bias binding folder. He was discharged to complete a course of antibiotics at home and was readmitted yesterday with increasing SOB and imaging revealed the effusion to have recurred. Repeat thoracentesis yesterday yielded 2900 cc of orange/yellow fluid with a pH of 7.4, wbc 2048 rbc 7958, LDH 650-cytology and cultures are pending. He was in Atrial Flutter on admission. Surgical consultation was requested by Dr. Sauceda for consideration of VATS. He is currently sitting up in his room with his in attendance. He reports feeling better after the thoracentesis yesterday. PMH: Pneumonia 1970 (?Legionarre's) medications: Diltiazem, Losartan, Amlodipine, Losartan, Lovenox, Atorvastatin NKDA remote history of tobacco use SH: retired/-lives in [facility], PCP ROS: clear productive cough/no hemoptysis no prior environmental exposures/no history of GERD/no history of trauma or recent foreign travel PE: pleasant articulate gentleman in no acute distress/using supplemental O2 HEENT: no JVD/trachea midline/no adenopathy Lungs: Clear with diminished breath sounds right base + rub/scattered ronchi/no wheezing CVS: Tachycardia II/ [place] Chest CT post thoracentesis reviewed with the patient and his at the bedside diffuse pulmonary airspace consolodation involving the RUL/RML/RLL, small posterior/inferior pleural effusion and tiny pneumothorax lab: wbc 8.4 Hgb 16.8 Hct 50.6 422k Imp: 1.Complicated right lung pneumonia/parapneumonic effusion-no evidence of empyema 2. A-flutter 3. HTN 4. VTE prophylaxis with Lovenox 5. remote history of pneumonia Rec: discussed pros and cons of proceeding with VATS I recommended waiting for evidence of re-recurrence and monitor culture results. VATS would not improve his pulmonary consolidation and would expose him to anesthetic and surgical risks. I discussed with Dr. Cano and will request formal pulmonary follow up tomorrow. Sanjana Cao MD, FACS
[2016-10-02] MEDS: LATANOPROST 0.005% 2.5 ML OPHT DROPS EACHEYE SCH (20:11)
[2016-10-02] MEDS: amLODIPine BESYLATE 5 MG TAB PO SCH (21:15)
[2016-10-02] MEDS: ATORVASTATIN CALCIUM 20 MG TAB PO SCH (21:16)
[2016-10-03] MEDS: DILTIAZEM 30 MG TAB PO SCH ×2 (05:55→11:53)
[2016-10-03 06:22] LABS: INR 1.13 (0.83-1.16); PROTIME(PATIENT) 14.4 SEC (12.0-15.0)
[2016-10-03 06:23] LABS: APTT 31.1 SEC (23.0-38.0)
[2016-10-03 06:31] LABS: ANION GAP 6 mEq/L (8-16); CALCIUM 8.5 mg/dL (8.5-10.4); CARBON DIOXIDE 31 mEq/l (22-31); CHLORIDE 98 mEq/L (97-110); CREATININE 0.8 mg/dL (0.7-1.3); GLOMERULAR FILTRATION RATE > 60; GLUCOSE 91 mg/dL (70-100); POTASSIUM 3.7 mEq/L (3.5-5.2); SODIUM 135 mEq/L (134-144)
[2016-10-03] MEDS: LOSARTAN POTASSIUM 50 MG TAB PO SCH (09:18)
[2016-10-03] MEDS: OMEGA-3 FATTY ACIDS 1,000 MG CAP PO SCH (09:18)
[2016-10-03] MEDS: PRESERVISION AREDS2 FORMULA EYE VIT 1 EACH PO SCH ×2 (09:18→20:52)
[2016-10-03] MEDS: HYDROCHLOROTHIAZIDE 25 MG TAB PO SCH (09:18)
[2016-10-03] MEDS: ENOXAPARIN 40 MG/0.4 ML SYR SC SCH (09:19)
--- NOTE | 2016-10-03 11:58 | HOSPPROG ---
Hospitalist Progress Note Assessment/Plan: 76 yo M w recurrent exudative pleural effusion pleural effusion: s/p thoracentesis 10/01 with 2,900 mLs, exudative. Cytology pending. GS/Cx on this specimen requested, had negative Cx 09/13/2016. S/P 5 days Levaquin for CAP tx. CTA negative for PE. No fevers. Surgery input appreciated, holding off on VATS. Discussed case with Dr. Cano, pulmonology and reviewed repeat CXR today, which shows re-accumulation of effusion. Per Dr. Cano, pt to have repeat thora today and will start low dose Lasix. a flutter: almost certainly due to pulm process. Poor rate control, increase Dilt. Chads-vasc 3, 4% annual stroke risk. Discussed AC plan as A fib/flutter present in 08/2016 as well. Holding therapeutic Lovenox for now as will undergo repeat thora. If no further interventions planned, will start Coumadin. hypertension: holding norvasc, losartan, hctz while up-titrating dilt to avoid hypotension proph: [facility] dispo: inpatient Subjective: Pt feels okay. No fevers or cough. No CP or SOB. His HR is elevated with activity. Objective: Vital Signs Temp Pulse Resp BP Pulse Ox 36.7 C 118 H 15 112/75 94 10/03/16 11:50 10/03/16 11:50 10/03/16 11:50 10/03/16 11:50 10/03/16 11:50 Laboratory Results 10/03/16 06:00 10/02/16 10/03/16 10/04/16 05:59 05:59 05:59 Intake Total 1670 700 Output Total 800 410 Balance 870 290 PT 14.4 SEC (12.0-15.0) 10/03/16 06:00 INR 1.13 (0.83-1.16) 10/03/16 06:00 - Physical Exam Constitutional: no apparent distress Eyes: PERRL Ears, Nose, Mouth, Throat: moist mucous membranes Cardiovascular: irregularly irregular Respiratory: no respiratory distress, other (right sided crackles half way up) Gastrointestinal: normoactive bowel sounds, soft, non-tender abdomen Skin: warm Musculoskeletal: full muscle strength Neurologic: AAOx3 Psychiatric: interacting appropriately ICD10 Worksheet Patient Problems: Problems Problem Status Onset Atrial flutter Acute Pleural effusion, right Acute Hypoxemia Acute Recurrent right pleural effusion Acute
[2016-10-03] MEDS ORDERED: DILTIAZEM 30 MG TAB PO SCH (12:16)
[2016-10-03] MEDS: DILTIAZEM 60 MG TAB PO SCH ×3 (13:46→23:53)
[2016-10-03 14:11] LABS: % IMMATURE GRANULYOCYTES 0.4 % (0.0-1.1); ABSOLUTE IMMATURE GRANULOCYTES 0.03 10^3/uL (0.00-0.10); ADD DIFF? NO; ADD MORPH? NO; ADD SCAN? NO; ATYPICAL LYMPHOCYTE FLAG 0 (0-99); FRAGMENT RBC FLAG 0 (0-99); HEMATOCRIT 45.1 % (40.0-51.0); HEMOGLOBIN 15.1 g/dL (13.7-17.5); LEFT SHIFT FLG 0 (0-99); LIPEMIA HEMOLYSIS FLAG 80 (0-99); MEAN CELL HEMOGLOBIN CONCENTR. 33.5 g/dL (32.4-36.7); MEAN CELL VOLUME 86.6 fL (81.5-99.8); MEAN PLATELET VOLUME 10.5 fL (8.7-11.7); PLATELET CLUMPS FLAG 0 (0-99); PLATELET COUNT 340 10^3/uL (150-400); RED BLOOD CELL COUNT 5.21 10^6/uL (4.40-6.38); RED CELL DISTRIBUTION WIDTH 13.1 % (11.5-15.2)
--- NOTE | 2016-10-03 15:10 | GCON ---
[f rep st] CONSULTATION CHEST CONSULTATION REASON FOR CONSULTATION: Recurrent pleural effusion. 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 He presented in August for right-sided pleural effusion. This was simply tapped, and he was discharged home. At that time, it was felt to be secondary to community-acquired pneumo nas. He was readmitted on 10/01/2016 with worsening breathlessness and, again, recurrent pleural ef fusion that was subsequently tapped. Chest x-ray compared to yesterday shows reaccumulation. In di scussion with patient, he overall feels quite well but is mildly breathless. He denies any cough or productive sputum. There has been no fever, no night sweats. He denies any chest pain, pleuritic- type chest pain, or angina equivalent. Currently, he is resting comfortably. PAST MEDICAL HISTORY: Again, significant for Legionnaire disease, hypertension, glaucoma, macular d egeneration, atrial fibrillation, and a recent exudative pleural effusion. ALLERGIES: None to medications. SOCIAL HISTORY: Ten pack year smoker, none recently. No significant alcohol use. 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 He lives in [place]. PHYSICAL EXAMINATION: VITAL SIGNS: Blood pressure is 112/75, pulse 118, respirations 15, temperatu re 36.7, oxygen saturation 94% on 4 L. GENERAL: He is a mildly overweight but very pleasant 76-yea r-old white male who is resting comfortably in no acute distress. HEENT: Eyes are FITZ, EOMI. Thr oat shows no erythema or tonsillar hypertrophy. NECK: Supple. There is no cervical adenopathy. H EART: Irregular irregular with a 2/6 systolic murmur left sternal border without radiation. LUNGS: Diminished breath sounds. There are increased crackles in the right base posteriorly. ABDOMEN: Soft, nontender. Bowel sounds are present in all 4 quadrants. EXTREMITIES: No clubbing, cyanosis, or edema. LABORATORIES: White count 7.8, hemoglobin 15, hematocrit 45, platelet count is 340. INR is 1.13. Sodium is 135, potassium 3.7, chloride 98, CO2 is 31, BUN 18, creatinine 0.8, glucose is 91. Pleura l effusion: pH is 7.40 with 2048 WBCs, 7958 RBCs, predominantly lymphocytes. LDH is 656. Cytology shows no evidence of malignant cells. There are increased mesothelioma cells. IMPRESSION: 1. Recurrent pleural effusion, etiology of which is unclear. May be secondary to his atrial fibril lation/flutter. His ejection fraction is good. 2. Hypertension. 3. Glaucoma. 4. History of macular degeneration. RECOMMENDATIONS: 1. Will consult Interventional Radiology for a therapeutic thoracentesis. 2. Will start patient on low-dose Lasix. 3. Will hold anticoagulation for now. 4. Patient should be able to be discharged home tomorrow. Thank you very much for allowing me to participate in the care of this interesting patient. Salomón cook along with you. /[id number]/MODL
[2016-10-03] MEDS: FUROSEMIDE 20 MG TAB PO SCH (16:25)
[2016-10-03] MEDS: ATORVASTATIN CALCIUM 20 MG TAB PO SCH (20:52)
[2016-10-03] MEDS: LATANOPROST 0.005% 2.5 ML OPHT DROPS EACHEYE SCH (20:52)
[2016-10-04] MEDS: DILTIAZEM 60 MG TAB PO SCH ×4 (06:05→23:56)
[2016-10-04 06:33] LABS: INR 1.11 (0.83-1.16); PROTIME(PATIENT) 14.2 SEC (12.0-15.0)
[2016-10-04 06:34] LABS: APTT 30.9 SEC (23.0-38.0)
[2016-10-04 06:49] LABS: ANION GAP 4 mEq/L (8-16); CALCIUM 8.4 mg/dL (8.5-10.4); CARBON DIOXIDE 31 mEq/l (22-31); CHLORIDE 99 mEq/L (97-110); CREATININE 0.8 mg/dL (0.7-1.3); GLOMERULAR FILTRATION RATE > 60; GLUCOSE 91 mg/dL (70-100); POTASSIUM 3.7 mEq/L (3.5-5.2); SODIUM 134 mEq/L (134-144)
[2016-10-04] MEDS: FUROSEMIDE 20 MG TAB PO SCH (08:44)
[2016-10-04] MEDS: OMEGA-3 FATTY ACIDS 1,000 MG CAP PO SCH (08:44)
[2016-10-04] MEDS: PRESERVISION AREDS2 FORMULA EYE VIT 1 EACH PO SCH ×2 (08:44→20:55)
[2016-10-04] MEDS ORDERED: NA BICARBONATE 50 MEQ/50 ML VIAL ONE (09:24)
--- NOTE | 2016-10-04 12:04 | HOSPPROG ---
Hospitalist Progress Note Assessment/Plan: 76 yo M w recurrent exudative pleural effusion pleural effusion: s/p thoracentesis 10/01 with 2,900 mLs, exudative. Cytology pending. Cxs neg 09/13/2016 and 10/01/2016. S/P 5 days Levaquin for CAP tx. CTA negative for PE, though increasing consolidation noted. Effusion reaccumulated and attempt at thora yesterday unsuccessful due to loculation. -plan to re-visit VATS with surgery a flutter: almost certainly due to pulm process. Improved rate control on increased Dilt dose. Chads-vasc 3, 4% annual stroke risk. Discussed AC, pt agreeable. -therapeutic lovenox dose today, hold in for probable VATS hypertension: holding norvasc, losartan, hctz while up-titrating dilt to avoid hypotension proph: lmwh dispo: inpatient Subjective: Pt feels okay, requiring 5-6 LPM O2. No CP or SOB at rest. No cough. No fevers/chills. Objective: Vital Signs Temp Pulse Resp BP Pulse Ox 36.4 C 99 18 114/70 95 10/04/16 11:31 10/04/16 11:31 10/04/16 11:31 10/04/16 11:31 10/04/16 11:31 Microbiology 10/01/16 16:30 Gram Stain - Final Pleural Fluid - Aspirate Laboratory Results 10/03/16 14:00 10/04/16 06:10 10/03/16 10/04/16 10/05/16 05:59 05:59 05:59 Intake Total 700 600 Output Total 410 Balance 290 600 PT 14.2 SEC (12.0-15.0) 10/04/16 06:10 INR 1.11 (0.83-1.16) 10/04/16 06:10 - Physical Exam Constitutional: no apparent distress Eyes: PERRL Ears, Nose, Mouth, Throat: moist mucous membranes Cardiovascular: regular rate and rhythym Respiratory: no respiratory distress, inspiratory crackles, other Gastrointestinal: normoactive bowel sounds, soft, non-tender abdomen Skin: warm Musculoskeletal: full muscle strength Neurologic: AAOx3 Psychiatric: interacting appropriately ICD10 Worksheet Patient Problems: Problems Problem Status Onset Atrial flutter Acute Pleural effusion, right Acute Hypoxemia Acute Recurrent right pleural effusion Acute
--- NOTE | 2016-10-04 12:26 | SOAPPROG ---
SOAP Progress Note Assessment/Plan: Assessment/Plan: * Loculated pleural effusion-minimal output per most recent thoracentesis. -recommend consulting surgery for VATS/decortication * Respiratory-still on 3-4 L of oxygen. Unable to wean at this time Subjective: Resting comfortably. Still breathless with exertion. Cough is minimal Objective: Vital Signs Temp Pulse Resp BP Pulse Ox 36.4 C 99 18 114/70 95 10/04/16 11:31 10/04/16 11:31 10/04/16 11:31 10/04/16 11:31 10/04/16 11:31 Microbiology 10/01/16 16:30 Gram Stain - Final Pleural Fluid - Aspirate Laboratory Results 10/03/16 14:00 10/04/16 06:10 10/03/16 10/04/16 10/05/16 05:59 05:59 05:59 Intake Total 700 600 Output Total 410 Balance 290 600 PT 14.2 SEC (12.0-15.0) 10/04/16 06:10 INR 1.11 (0.83-1.16) 10/04/16 06:10 Physical Exam - Physical Exam General Appearance: alert, no apparent distress EENT: PERRL/EOMI, normal ENT inspection, pharynx normal, TMs normal Neck: non-tender, full range of motion, supple, normal inspection Respiratory: crackles (Bibasilar), No respiratory distress, No wheezing Cardiac/Chest: normal peripheral pulses, regular rate, rhythm, systolic murmur Peripheral Pulses: 2+: carotid (R), carotid (L), femoral (R), femoral (L), dorsalis-pedis (R), dorsalis-pedis (L) Abdomen: normal bowel sounds, non-tender, soft Male Genitalia: deferred Rectal: deferred Skin: normal color, warm/dry Extremities: normal range of motion, non-tender, normal inspection, normal capillary refill Neuro/Psych: no motor/sensory deficits, alert, normal mood/affect, oriented x 3 ICD10 Worksheet Patient Problems: Problems Problem Status Onset Atrial flutter Acute Pleural effusion, right Acute Hypoxemia Acute Recurrent right pleural effusion Acute
--- NOTE | 2016-10-04 13:26 | PDCONSULT ---
Ferryboat Deckhand Note: Mr. Navarrete is reaccumulating a loculated effusion. I discussed VATS with he and his and will schedule his procedure during this hospitalization. The procedure, risks and expected recovery were discussed. Sanjana Cao MD, FACS
[2016-10-04] MEDS ORDERED: ENOXAPARIN 100 MG/ML SYR SC ONE (13:39)
[2016-10-04] MEDS: ATORVASTATIN CALCIUM 20 MG TAB PO SCH (20:55)
[2016-10-04] MEDS: LATANOPROST 0.005% 2.5 ML OPHT DROPS EACHEYE SCH (20:55)
[2016-10-05] MEDS ORDERED: BUPIVACAINE/EPI 0.5% 30 ML SDV ONE (05:29)
[2016-10-05] MEDS: DILTIAZEM 60 MG TAB PO SCH ×4 (06:43→17:14)
[2016-10-05] MEDS ORDERED: ceFAZolin 3 GM in D5W 100 ML IV ONE (07:59)
--- NOTE | 2016-10-05 07:59 | PDCONSULT ---
Civil Cadd Technician Note: Mr. Navarrete is resting comfortably and does not appear in distress Lungs: diminished LLL/not much change CVS: IRRR/tachy Imp: Resolving right pneumonia/pulmonary consolidation with recurring parapneumonic effusion A-fib with poor rate control Rec: We discussed surgery (right VATS with decortication) and expected recovery as well as risks. Informed consent was obtained. I discussed his cardiac arrhythmia with Dr. Arango who plans on managing his A- fib with anticoagulation post op and we discussed the risks specifically related to that treatment following surgery. He and his had questions regarding that treatment plan and I told them that the plan was to anticoagulate him with Lovenox post op and start Coumadin in the next 24 hours. He has not had a cardiology consultation yet. Sanjana Cao MD, FACS
[2016-10-05] MEDS ORDERED: CEFAZOLIN 2 GM/DEXTROSE/100 ML BAG IV ONE (08:02)
[2016-10-05] MEDS ORDERED: CEFAZOLIN 1 GM/DEXTROSE/50 ML BAG IV ONE (08:09)
[2016-10-05] MEDS ORDERED: MIDAZOLAM 2 MG/2 ML VIAL ONE (08:19)
[2016-10-05] MEDS ORDERED: fentaNYL 250 MCG/5 ML INJ ONE (08:21)
[2016-10-05] MEDS ORDERED: PROPOFOL 200 MG/20 ML VIAL ONE (08:21)
[2016-10-05] MEDS ORDERED: DEXAMETHASONE 4 MG/ML VIAL ONE ×2 (09:01)
[2016-10-05] MEDS ORDERED: ONDANSETRON 4 MG/2 ML VIAL ONE (09:01)
[2016-10-05] MEDS ORDERED: PHENYLEPHRINE HCL 100 MCG/ML SYR ONE (09:01)
--- NOTE | 2016-10-05 10:41 | POSTOPPROG ---
Post Op Note Date of Operation: 10/05/16 Surgeon: Ankit Cao (, FACS) Anesthesiologist: Eder Cooney MD Anesthesia: GET(General Endotracheal) Pre-op Diagnosis: right pleural effusion Post-op Diagnosis: same Procedure: VATS decortication/drainage/pleural biopsy Inf/Abcess present in the surg proc area at time of surgery?: No EBL: Minimal Drains: Other (36 Fr. right angle thoracostomy)
--- NOTE | 2016-10-05 11:45 | GOP ---
[f rep st] OPERATIVE REPORT DATE OF OPERATION: 10/05/2016 SURGEON: Ankit Cao MD, FACS ANESTHESIA: General endotracheal. Ankit Cooney MD PREOPERATIVE DIAGNOSIS: 1. Right pleural effusion. 2. Right pneumonia, resolving. 3. New onset atrial fibrillation. POSTOPERATIVE DIAGNOSIS: 1. Right pleural effusion. 2. Right pneumonia, resolving. 3. New onset atrial fibrillation. PROCEDURE PERFORMED: 1. Right video-assisted thoracic surgery (thoracoscopy) with decortication and drainage. 2. Right pleural biopsy. 3. Flexible bronchoscopy. FINDINGS: Clear mucus in the right mainstem, upper lobe, middle lobe and lower lobe bronchial orifices. No purulent endobronchial secretions. No endobronchial tumors. Right pleural effusion, sanguinous, approximately 500 mL of residual pleural fluid in the right chest with moderate adhesions. No significant pleural rind. Nodular thickening of the pleura consistent with inflammatory condition, biopsy submitted for permanent section. Repeat culture of the fluid was submitted for aerobes and anaerobes. ESTIMATED BLOOD LOSS: For the procedure 10 cc. Approximately 500 cc of blood- tinged fluid and clots were evacuated from the right chest. DESCRIPTION OF PROCEDURE: After informed consent was obtained, the patient was brought to the operating room and placed under general anesthesia via double- lumen endotracheal tube. Using a flexible bronchoscope in the tracheal lumen, the right lung was evaluated for endobronchial lesions and none were observed in the mainstem, right upper lobe, middle lobe and lower lobe bronchial orifices. There was a moderate amount of clear mucoid secretions in the airways , but no purulent appearing secretions. The bronchoscope was withdrawn. Patient was positioned in a left lateral decubitus position. The right chest was prepped and draped in usual fashion. Before proceeding, a time-out and identification of the patient was performed. 0.25% Marcaine was used to infiltrate all incision sites. A 2 cm incision was made in the 6th intercostal space anterior axillary line, and dissection carried out through the skin and subcutaneous tissues. The intercostal muscles were spread with a Pean clamp and the pleural space was entered with blunt dissection. The lung was adherent to the chest wall at this level and was freed up with digital dissection. A 15 mm thoracoscopic port was placed and the pleural cavity was evaluated with a 30 degree 5 mm scope. A 2nd 5 mm port was placed posteriorly in the 6th intercostal space, and this allowed introduction of the camera posteriorly, while the larger anterior port was used to introduce a curvilinear suction device. This was used to bluntly separate the visceral and parietal pleura, and approximately 500 cc of a posterior layered pleural effusion was evacuated. This was mostly bloody fluid with a few clots. The specimen was submitted for aerobes and anaerobes. The pleura was diffusely thickened secondary to inflammation. A biopsy of the posterolateral pleura was performed with a biopsy forceps, and cautery used for hemostasis. Irrigation was performed in a limited fashion and the pleural space appeared to be completely evacuated. There was no significant visceral pleural rind that required decortication. All the remaining clot and bloody fluid was evacuated. A 36-Chadian right angle chest tube was positioned from the anterior port site posterior to the lung and inferiorly. This was secured to the skin with an interrupted 0 silk suture in a vertical mattress fashion. The lung was re-expanded under direct visualization. The posterior port was removed. Skin was closed with 4-0 Monocryl suture. Sterile dressings were applied around the chest tube, which was placed to a Pleur-evac on 20 cm of suction, with no air leak noted upon completion. Sterile dressings were placed. The patient was extubated and brought to the recovery room in satisfactory condition. /[id number]/MODL MTDD
--- NOTE | 2016-10-05 11:45 | SOAPPROG ---
SOAP Progress Note Assessment/Plan: Assessment/Plan: * Loculated pleural effusion-status post VATS/decortication today. Chest tube with minimal drainage -continue chest tube drainage for now -await culture and path report * Respiratory-still on 3-4 L of oxygen. -wean FiO2 as tolerated * Pain-well controlled Subjective: Resting comfortably postoperatively. Pain will is well controlled. He denies any breathlessness currently Objective: Vital Signs Temp Pulse Resp BP Pulse Ox 36.6 C 92 16 114/78 89 L 10/05/16 11:25 10/05/16 11:25 10/05/16 11:25 10/05/16 11:25 10/05/16 11:25 Microbiology 10/05/16 09:13 Gram Stain - Final Pleural Fluid - Aspirate 10/01/16 16:30 Gram Stain - Final Pleural Fluid - Aspirate Laboratory Results 10/03/16 14:00 10/04/16 06:10 10/04/16 10/05/16 10/06/16 05:59 05:59 05:59 Intake Total 600 600 600 Output Total 38 Balance 600 600 562 PT 14.2 SEC (12.0-15.0) 10/04/16 06:10 INR 1.11 (0.83-1.16) 10/04/16 06:10 Physical Exam - Physical Exam General Appearance: alert, no apparent distress EENT: PERRL/EOMI, normal ENT inspection, pharynx normal, TMs normal Neck: non-tender, full range of motion, supple, normal inspection Respiratory: crackles (Right base), No respiratory distress, No stridor, No wheezing Cardiac/Chest: normal peripheral pulses, regular rate, rhythm, systolic murmur Peripheral Pulses: 2+: carotid (R), carotid (L), femoral (R), femoral (L), dorsalis-pedis (R), dorsalis-pedis (L) Abdomen: normal bowel sounds, non-tender, soft Male Genitalia: deferred Rectal: deferred Skin: normal color, warm/dry Extremities: normal range of motion, non-tender, normal inspection, normal capillary refill ICD10 Worksheet Patient Problems: Problems Problem Status Onset Atrial flutter Acute Pleural effusion, right Acute Hypoxemia Acute Recurrent right pleural effusion Acute
[2016-10-05] MEDS: OMEGA-3 FATTY ACIDS 1,000 MG CAP PO SCH (12:29)
[2016-10-05] MEDS: PRESERVISION AREDS2 FORMULA EYE VIT 1 EACH PO SCH ×2 (12:29→21:58)
[2016-10-05] MEDS: FUROSEMIDE 20 MG TAB PO SCH (12:29)
--- NOTE | 2016-10-05 14:14 | HOSPPROG ---
Hospitalist Progress Note Assessment/Plan: 76 yo M w recurrent exudative pleural effusion pleural effusion: s/p thoracentesis 10/01 with 2,900 mLs, exudative. Cytology pending. Cxs neg 09/13/2016 and 10/01/2016. S/P 5 days Levaquin for CAP tx. CTA negative for PE, though increasing consolidation noted. Effusion reaccumulated and attempt at repeat thora unsuccessful due to loculation. Case discussed with Dr. Cao. -VATS this am, 500 cc's pleural fluid with adhesions and nodular thickening c /w inflammatory condition -pleural biopsy and rpt Cx's pending -send KURTIS acute hypoxemic respiratory failure - present on admission, persists, due to above. -wean O2 as able a flutter: almost certainly due to pulm process. Improved rate control on increased Dilt dose. Chads-vasc 3, 4% annual stroke risk. Discussed AC, pt agreeable. -therapeutic lovenox -start coumadin -change to Dilt XR once daily dosing hypertension: holding norvasc, losartan, hctz while up-titrating dilt to avoid hypotension proph: lmwh dispo: cont inpatient Subjective: Pt doing well. A bit groggy post-anesthesia, but denies pain. Breathing a bit better. No CP. Eating. Objective: Vital Signs Temp Pulse Resp BP Pulse Ox 36.6 C 96 16 122/79 H 89 L 10/05/16 11:25 10/05/16 12:04 10/05/16 11:25 10/05/16 12:04 10/05/16 11:25 Microbiology 10/05/16 09:13 Gram Stain - Final Pleural Fluid - Aspirate 10/01/16 16:30 Gram Stain - Final Pleural Fluid - Aspirate Laboratory Results 10/03/16 14:00 10/04/16 06:10 10/04/16 10/05/16 10/06/16 05:59 05:59 05:59 Intake Total 600 600 600 Output Total 38 Balance 600 600 562 PT 14.2 SEC (12.0-15.0) 10/04/16 06:10 INR 1.11 (0.83-1.16) 10/04/16 06:10 - Physical Exam Constitutional: no apparent distress Eyes: PERRL Ears, Nose, Mouth, Throat: moist mucous membranes Cardiovascular: regular rate and rhythym Respiratory: no respiratory distress, reduced air movement Gastrointestinal: normoactive bowel sounds, soft, non-tender abdomen Skin: warm Musculoskeletal: full muscle strength Neurologic: AAOx3 Psychiatric: interacting appropriately ICD10 Worksheet Patient Problems: Problems Problem Status Onset Atrial flutter Acute Pleural effusion, right Acute Hypoxemia Acute Recurrent right pleural effusion Acute
[2016-10-05] MEDS ORDERED: WARFARIN SODIUM 5 MG TAB PO SCH (16:00)
[2016-10-05] MEDS: ATORVASTATIN CALCIUM 20 MG TAB PO SCH (21:58)
[2016-10-05] MEDS: LATANOPROST 0.005% 2.5 ML OPHT DROPS EACHEYE SCH (22:00)
[2016-10-06 04:39] LABS: INR 1.13 (0.83-1.16); PROTIME(PATIENT) 14.4 SEC (12.0-15.0)
[2016-10-06 04:52] LABS: HEMATOCRIT 43.1 % (40.0-51.0); HEMOGLOBIN 14.1 g/dL (13.7-17.5); MEAN CELL HEMOGLOBIN 28.8 pg (27.9-34.1); MEAN CELL HEMOGLOBIN CONCENTR. 32.7 g/dL (32.4-36.7); MEAN CELL VOLUME 88.1 fL (81.5-99.8); RED BLOOD CELL COUNT 4.89 10^6/uL (4.40-6.38); RED CELL DISTRIBUTION WIDTH 12.7 % (11.5-15.2)
[2016-10-06] MEDS: DILTIAZEM XR 240 MG CAP PO SCH (07:31)
[2016-10-06] MEDS: ENOXAPARIN 100 MG/ML SYR SC SCH ×2 (07:32→20:51)
[2016-10-06] MEDS: FUROSEMIDE 20 MG TAB PO SCH (07:32)
[2016-10-06] MEDS: OMEGA-3 FATTY ACIDS 1,000 MG CAP PO SCH (07:32)
[2016-10-06] MEDS: PRESERVISION AREDS2 FORMULA EYE VIT 1 EACH PO SCH ×2 (07:32→20:51)
--- NOTE | 2016-10-06 08:15 | PDCONSULT ---
Stitcher Operator Note: Cory is resting comfortably and denies significant pain. He has 325 ml of bloody fluid out since surgery yesterday morning and there is no air leak. His CXR shows no pneumothorax and some residual RLL consolidation. His lungs are clear but diminished on the right and his surgical dressing is bloody. I placed his CT on H2O seal and will monitor CT output daily and anticipate chest tube removal when output is less than 100 ml/24 hours. His vital signs are stable, though he remains in A-fib with a rate in the 140s currently. Sanjana Cao MD, FACS
[2016-10-06] MEDS ORDERED: DIGOXIN 500 MCG/2 ML AMP IVP ONE (09:34)
[2016-10-06] MEDS ORDERED: DIGOXIN 125 MCG TAB PO SCH (10:00)
--- NOTE | 2016-10-06 10:47 | SOAPPROG ---
SOAP Progress Note Assessment/Plan: Assessment/Plan: * Loculated pleural effusion-status post VATS/decortication today. Chest tube with minimal drainage -chest tube now on water seal -await culture and path report * Respiratory-still on 3-4 L of oxygen. -wean FiO2 as tolerated * Atrial fibrillation-with RVR -on digoxin and Cardizem * Pain-well controlled Subjective: Sitting up reading newspaper. Denies any current chest pain present. There is no breathlessness. Objective: Vital Signs Temp Pulse Resp BP Pulse Ox 36.3 C 144 H 18 95/76 L 93 10/06/16 07:21 10/06/16 07:21 10/06/16 07:21 10/06/16 09:30 10/06/16 07:21 Microbiology 10/01/16 16:30 Gram Stain - Final Pleural Fluid - Aspirate Body Fluid Culture - Final 10/05/16 09:13 Gram Stain - Final Pleural Fluid - Aspirate Laboratory Results 10/06/16 04:20 10/04/16 06:10 10/05/16 10/06/16 10/07/16 05:59 05:59 05:59 Intake Total 600 2350 240 Output Total 978 Balance 600 1372 240 PT 14.4 SEC (12.0-15.0) 10/06/16 04:20 INR 1.13 (0.83-1.16) 10/06/16 04:20 Physical Exam - Physical Exam General Appearance: alert, no apparent distress EENT: PERRL/EOMI, normal ENT inspection Neck: non-tender, full range of motion Respiratory: crackles (Right base), No stridor, No wheezing Cardiac/Chest: tachycardia, irregularly irregular Peripheral Pulses: 2+: carotid (R), carotid (L), femoral (R), femoral (L), dorsalis-pedis (R), dorsalis-pedis (L) Abdomen: normal bowel sounds, non-tender, soft Male Genitalia: deferred Rectal: deferred Skin: normal color, warm/dry Extremities: normal range of motion, non-tender, normal inspection, normal capillary refill Neuro/Psych: no motor/sensory deficits, alert, normal mood/affect, oriented x 3 ICD10 Worksheet Patient Problems: Problems Problem Status Onset Atrial flutter Acute Pleural effusion, right Acute Hypoxemia Acute Recurrent right pleural effusion Acute
--- NOTE | 2016-10-06 11:51 | HOSPPROG ---
Hospitalist Progress Note Assessment/Plan: 76 yo M w recurrent exudative pleural effusion pleural effusion: Thora 10/01 with 2,900 mLs, exudative. Cytology pending. Cxs neg 09/13/2016 and 10/01/2016. S/P 5 days Levaquin for CAP tx. Effusion reaccumulated and attempt at repeat thora unsuccessful due to loculations. -S/P VATS, POD #1 -chest tube management per surgery -pleural biopsy and rpt Cx's pending -will send KURTIS acute hypoxemic respiratory failure - present on admission, persists, due to above. -wean O2 as able a flutter: almost certainly due to pulm process. Transitioned to long acting Dilt this am, but back in RVR. Chads-vasc 3, 4% annual stroke risk. -will give IV Dig for better rate control given low bp -cont Dilacor -cont coumadin, remains sub-therapeutic, pharmacy dosing -therapeutic lovenox hypertension: holding norvasc, losartan, hctz to avoid hypotension proph: lmwh dispo: cont inpatient Subjective: Pt feels okay. No CP or SOB. No fevers. Notes HR is increased. Objective: Vital Signs Temp Pulse Resp BP Pulse Ox 36.6 C 117 H 20 103/75 94 10/06/16 11:34 10/06/16 11:34 10/06/16 11:34 10/06/16 11:34 10/06/16 11:34 Microbiology 10/01/16 16:30 Gram Stain - Final Pleural Fluid - Aspirate Body Fluid Culture - Final 10/05/16 09:13 Gram Stain - Final Pleural Fluid - Aspirate Laboratory Results 10/06/16 04:20 10/04/16 06:10 10/05/16 10/06/16 10/07/16 05:59 05:59 05:59 Intake Total 600 2350 240 Output Total 978 Balance 600 1372 240 PT 14.4 SEC (12.0-15.0) 10/06/16 04:20 INR 1.13 (0.83-1.16) 10/06/16 04:20 - Physical Exam Constitutional: no apparent distress Eyes: PERRL Ears, Nose, Mouth, Throat: moist mucous membranes Cardiovascular: irregularly irregular Respiratory: no respiratory distress, other (some right sided crackles, improved air exchange, CT draining) Gastrointestinal: normoactive bowel sounds Skin: warm Musculoskeletal: full muscle strength Neurologic: AAOx3 Psychiatric: interacting appropriately ICD10 Worksheet Patient Problems: Problems Problem Status Onset Atrial flutter Acute Pleural effusion, right Acute Hypoxemia Acute Recurrent right pleural effusion Acute
[2016-10-06] MEDS: DIGOXIN 500 MCG/2 ML AMP IVP SCH ×2 (15:42→20:50)
[2016-10-06] MEDS ORDERED: WARFARIN SODIUM 7.5 MG TAB PO ONE (16:00)
[2016-10-06] MEDS: LATANOPROST 0.005% 2.5 ML OPHT DROPS EACHEYE SCH (20:50)
[2016-10-06] MEDS: ATORVASTATIN CALCIUM 20 MG TAB PO SCH (20:51)
[2016-10-07 05:52] LABS: % IMMATURE GRANULYOCYTES 0.4 % (0.0-1.1); ABSOLUTE IMMATURE GRANULOCYTES 0.04 10^3/uL (0.00-0.10); ADD DIFF? NO; ADD MORPH? NO; ADD SCAN? NO; ATYPICAL LYMPHOCYTE FLAG 20 (0-99); FRAGMENT RBC FLAG 0 (0-99); HEMATOCRIT 39.1 % (40.0-51.0); HEMOGLOBIN 12.8 g/dL (13.7-17.5); LEFT SHIFT FLG 0 (0-99); LIPEMIA HEMOLYSIS FLAG 80 (0-99); MEAN CELL HEMOGLOBIN 28.8 pg (27.9-34.1); MEAN CELL HEMOGLOBIN CONCENTR. 32.7 g/dL (32.4-36.7); MEAN CELL VOLUME 88.1 fL (81.5-99.8); PLATELET CLUMPS FLAG 20 (0-99); PLATELET COUNT 218 10^3/uL (150-400); RED BLOOD CELL COUNT 4.44 10^6/uL (4.40-6.38); RED CELL DISTRIBUTION WIDTH 12.8 % (11.5-15.2)
[2016-10-07 06:11] LABS: INR 1.4 (0.83-1.16); PROTIME(PATIENT) 17.1 SEC (12.0-15.0)
--- NOTE | 2016-10-07 06:35 | PDCONSULT ---
Wellness Spa Manager Note: Cory is resting comfortably/denies significant pain breath sounds remain diminished at the right base/CT output 100ml-24 hours by my measure CXR pending INR 1.4 HCT 39 % Imp: stable s/p right VATS decortication/pleural biopsy Rec: check path/micro/CXR may be able to have CT removed as early as tomorrow based on output S MD Nash, FACS
[2016-10-07] MEDS ORDERED: HYDROmorphONE/DILAUDID 1 MG/ML SYR IVP PRN (08:13)
[2016-10-07] MEDS: ENOXAPARIN 100 MG/ML SYR SC SCH ×2 (08:36→20:27)
[2016-10-07] MEDS: oxyCODONE IR 5 MG TAB PO PRN ×4 (08:36→20:27)
[2016-10-07] MEDS: FUROSEMIDE 20 MG TAB PO SCH (08:37)
[2016-10-07] MEDS: DILTIAZEM XR 240 MG CAP PO SCH (08:37)
[2016-10-07] MEDS: ACETAMINOPHEN 325 MG TAB PO PRN ×4 (08:37→20:27)
[2016-10-07] MEDS: PRESERVISION AREDS2 FORMULA EYE VIT 1 EACH PO SCH ×2 (08:37→20:27)
[2016-10-07] MEDS: OMEGA-3 FATTY ACIDS 1,000 MG CAP PO SCH (08:38)
[2016-10-07] MEDS ORDERED: DIGOXIN 50 MCG/ML UDSYR PO SCH (10:00)
[2016-10-07] MEDS: DIGOXIN 125 MCG TAB PO SCH (10:11)
--- NOTE | 2016-10-07 11:02 | SOAPPROG ---
SOAP Progress Note Assessment/Plan: Assessment/Plan: * Loculated pleural effusion-status post VATS/decortication today. Chest tube with decreasing and drainage -chest tube now on water seal -await culture and path report * Respiratory-still on 3-4 L of oxygen. -wean FiO2 as tolerated * Atrial fibrillation-with RVR -on digoxin and Cardizem * Pain-well controlled Subjective: Up in chair, resting comfortably. Pleuritic chest pain has improved. Objective: Vital Signs Temp Pulse Resp BP Pulse Ox 36.7 C 76 14 116/78 94 10/07/16 07:07 10/07/16 07:07 10/07/16 07:07 10/07/16 07:07 10/07/16 07:07 Microbiology 10/05/16 09:13 Gram Stain - Final Pleural Fluid - Aspirate 10/01/16 16:30 Gram Stain - Final Pleural Fluid - Aspirate Body Fluid Culture - Final Laboratory Results 10/07/16 05:35 10/04/16 06:10 10/06/16 10/07/16 10/08/16 05:59 05:59 05:59 Intake Total 2350 765 Output Total 978 30 Balance 1372 735 PT 17.1 SEC (12.0-15.0) H 10/07/16 05:35 INR 1.40 (0.83-1.16) H 10/07/16 05:35 Physical Exam - Physical Exam General Appearance: alert, no apparent distress EENT: PERRL/EOMI, normal ENT inspection Neck: non-tender, full range of motion, supple, normal inspection Respiratory: crackles (Few on right), No respiratory distress, No wheezing Cardiac/Chest: normal peripheral pulses, regular rate, rhythm Peripheral Pulses: 2+: carotid (R), carotid (L), femoral (R), femoral (L), dorsalis-pedis (R), dorsalis-pedis (L) Abdomen: normal bowel sounds, non-tender, soft Male Genitalia: deferred Rectal: deferred ICD10 Worksheet Patient Problems: Problems Problem Status Onset Atrial flutter Acute Pleural effusion, right Acute Hypoxemia Acute Recurrent right pleural effusion Acute
--- NOTE | 2016-10-07 15:13 | HOSPPROG ---
Hospitalist Progress Note Assessment/Plan: 76 yo M w recurrent exudative pleural effusion pleural effusion with consolidation: S/P Levaquin tx for CAP. Thora 10/01 with 2,900 mLs, exudative. Cytology pending. Cxs neg 09/13/2016 and 10/01/2016. Effusion reaccumulated and attempt at repeat thora unsuccessful due to loculations. -S/P VATS, POD #2 -chest tube management per surgery -pleural biopsy and rpt Cx's pending -f/u cytology acute hypoxemic respiratory failure - present on admission, persists, due to above. Currently requiring 3 LPM from 6 LPM prior to VATS. -wean O2 as able -may require home oxygen a flutter: almost certainly due to pulm process. Chads-vasc 3, 4% annual stroke risk. -Dilt, Dig for rate control -cont coumadin, remains sub-therapeutic, pharmacy dosing -d/c lovenox when INR >2 hypertension: anti-hypertensives held due to lowish BP's. -resume Norvasc tonight -add back hctz and losartan as indicated proph: lmwh dispo: cont inpatient Subjective: Pt feels well. Had sudden severe pain in his chest wall near the chest tube site this am with movement. Some SOB. No fevers/chills. Eating well. Objective: Vital Signs Temp Pulse Resp BP Pulse Ox 36.4 C 106 H 16 139/88 H 94 10/07/16 11:22 10/07/16 11:22 10/07/16 11:22 10/07/16 11:22 10/07/16 11:22 Microbiology 10/05/16 09:13 Gram Stain - Final Pleural Fluid - Aspirate Laboratory Results 10/07/16 05:35 10/04/16 06:10 10/06/16 10/07/16 10/08/16 05:59 05:59 05:59 Intake Total 2350 765 Output Total 978 30 Balance 1372 735 PT 17.1 SEC (12.0-15.0) H 10/07/16 05:35 INR 1.40 (0.83-1.16) H 10/07/16 05:35 - Physical Exam Constitutional: no apparent distress Eyes: PERRL Ears, Nose, Mouth, Throat: moist mucous membranes Cardiovascular: regular rate and rhythym Respiratory: no respiratory distress, other (decreased crackles RLL, o/w CTAB) Gastrointestinal: normoactive bowel sounds, soft, non-tender abdomen Skin: warm Musculoskeletal: full muscle strength Neurologic: AAOx3 Psychiatric: interacting appropriately ICD10 Worksheet Patient Problems: Problems Problem Status Onset Atrial flutter Acute Pleural effusion, right Acute Hypoxemia Acute Recurrent right pleural effusion Acute
[2016-10-07] MEDS ORDERED: WARFARIN SODIUM 5 MG TAB PO ONE (16:00)
--- NOTE | 2016-10-07 16:04 | SOAPPROG ---
Downtime Inpatient MD Late Entry SOAP Note: Cory had an episode of severe chest pain after getting up and ambulating to the bathroom/pain has resolve repeat CXR negative change probable intercostal neuritis CT was resecured to the chest wall S MD Nash, FACS
[2016-10-07] MEDS: LATANOPROST 0.005% 2.5 ML OPHT DROPS EACHEYE SCH (20:26)
[2016-10-07] MEDS: ATORVASTATIN CALCIUM 20 MG TAB PO SCH (20:26)
[2016-10-07] MEDS: amLODIPine BESYLATE 5 MG TAB PO SCH (22:21)
[2016-10-08] MEDS: oxyCODONE IR 5 MG TAB PO PRN ×4 (05:30→16:12)
[2016-10-08] MEDS: ACETAMINOPHEN 325 MG TAB PO PRN ×3 (05:31→16:11)
[2016-10-08 06:10] LABS: INR 1.65 (0.83-1.16); PROTIME(PATIENT) 19.6 SEC (12.0-15.0)
--- NOTE | 2016-10-08 06:56 | PDCONSULT ---
Elementary Assistant Teacher Note: Cory continues to have pain with movement/CT output 150ml AFVSS lungs clear with diminished BS right base/CT dressing intact path pending Imp: s/p right VATS decortication/pleural bx persistant pleural drainage Rec: CT removal when output < 100ml/day check path S MD Nash, FACS
[2016-10-08] MEDS: ENOXAPARIN 100 MG/ML SYR SC SCH ×2 (08:57→21:39)
[2016-10-08] MEDS: OMEGA-3 FATTY ACIDS 1,000 MG CAP PO SCH (08:58)
[2016-10-08] MEDS: PRESERVISION AREDS2 FORMULA EYE VIT 1 EACH PO SCH ×2 (08:58→21:40)
[2016-10-08] MEDS: FUROSEMIDE 20 MG TAB PO SCH (08:58)
[2016-10-08] MEDS: DILTIAZEM XR 240 MG CAP PO SCH (08:59)
[2016-10-08] MEDS: DIGOXIN 125 MCG TAB PO SCH (11:08)
[2016-10-08] MEDS ORDERED: WARFARIN SODIUM 7.5 MG TAB PO ONE (16:00)
--- NOTE | 2016-10-08 17:50 | HOSPPROG ---
Hospitalist Progress Note Assessment/Plan: Assessment: 76 yo M p/w recurrent pleural effusion 1. Pleural effusion with consolidation: S/P Levaquin tx for CAP. S/p 2 thoras (2.5L and 2.9L, exudative). Cytology pending. Cxs neg 09/13/2016 and 2016. Effusion reaccumulated and attempt at repeat thora unsuccessful due to loculations. - S/P VATS, POD #3 - ongoing drainage 150cc o/n - chest tube mgmt per gen surg - cont chest tube while output > 100cc - d/w Dr. Arango, she has reported to me that the path is indicative of mesothelioma, so likely a malignant effusion - will await final path results, then consult w/ Onc 2. Chronic hypoxemic respiratory failure: 2/ effusion - cont o2 3. Atrial flutter: Stimulated by pulm process. Chads-vasc 3, 4% annual stroke risk. - Dilt, Dig for rate control - cont coumadin, remains sub-therapeutic, pharmacy dosing - d/c lovenox when INR >2 4. Chronic hypertension: anti-hypertensives held due to lowish BP's. - resumed Norvasc tonight Diet. Regular PPx. High risk, on lovenox Code. Full Dispo. ADD uncertain, ongoing chest tube output Subjective: Counseled patient and regarding inflammatory causes of pleural effusions as well as contraindications of utilizing nonsteroidal anti- inflammatory medications as well as steroids, counseled him regarding ongoing chest tube management and advantages of ambulating daily Objective: Vital Signs Temp Pulse Resp BP Pulse Ox 36.9 C 81 17 120/75 95 10/08/16 16:00 10/08/16 16:00 10/08/16 16:00 10/08/16 16:00 10/08/16 16:00 Microbiology 10/05/16 09:13 Gram Stain - Final Pleural Fluid - Aspirate Laboratory Results 10/07/16 05:35 10/04/16 06:10 10/07/16 10/08/16 10/09/16 05:59 05:59 05:59 Intake Total 765 400 Output Total 30 1067 Balance 735 -667 PT 19.6 SEC (12.0-15.0) H 10/08/16 05:35 INR 1.65 (0.83-1.16) H 10/08/16 05:35 - Time Spent With Patient Time Spent with Patient: greater than 35 minutes Time Spent with Patient: Greater than 35 minutes spent on this patients care, greater than 50% of time spent counseling, educating, and coordinating care regarding the above mentioned plan. - Physical Exam Constitutional: no apparent distress, appears nourished, No not in pain ( Certain amount of pain in the right chest) Cardiovascular: irregularly irregular, No tachycardia, No edema Respiratory: reduced air movement (Right base), rhonchi (On inspiration right side), No expiratory wheeze, No bronchial breath sounds Gastrointestinal: normoactive bowel sounds, soft, non-tender abdomen, no palpable masses Neurologic: AAOx3, sensation intact bilaterally Psychiatric: interacting appropriately, not anxious, not encephalopathic, thought process linear ICD10 Worksheet Patient Problems: Problems Problem Status Onset Atrial flutter Acute Pleural effusion, right Acute Hypoxemia Acute Recurrent right pleural effusion Acute
--- NOTE | 2016-10-08 21:34 | SOAPPROG ---
Downtime Inpatient MD Late Entry SOAP Note: I spoke with Dr. Damon this afternoon about Cory's right pleural biopsy. He was very concerned that the specimen showed mesothelioma and planned on additional stains to confirm. I spoke with Cory about the findings by phone and recommended an oncologic consultation. Dr. Morley is property economist for [facility] and I spoke with him about Cory's case and he will consult tomorrow. Cory's was in his room and we briefly discussed expected treatment options including chemotherapy. He reported mild pain related to his chest tube but was otherwise doing well. Dr. Badillo will be covering for me in my absence 10/08-10/14. Sanjana Cao MD, FACS
[2016-10-08] MEDS: amLODIPine BESYLATE 5 MG TAB PO SCH (21:39)
[2016-10-08] MEDS: ATORVASTATIN CALCIUM 20 MG TAB PO SCH (21:40)
[2016-10-08] MEDS: LATANOPROST 0.005% 2.5 ML OPHT DROPS EACHEYE SCH (21:40)
[2016-10-09 05:53] LABS: % IMMATURE GRANULYOCYTES 0.3 % (0.0-1.1); ABSOLUTE IMMATURE GRANULOCYTES 0.02 10^3/uL (0.00-0.10); ADD DIFF? NO; ADD MORPH? NO; ADD SCAN? NO; ATYPICAL LYMPHOCYTE FLAG 70 (0-99); FRAGMENT RBC FLAG 0 (0-99); HEMATOCRIT 44.6 % (40.0-51.0); HEMOGLOBIN 14.6 g/dL (13.7-17.5); LEFT SHIFT FLG 0 (0-99); LIPEMIA HEMOLYSIS FLAG 80 (0-99); MEAN CELL HEMOGLOBIN 28.1 pg (27.9-34.1); MEAN CELL HEMOGLOBIN CONCENTR. 32.7 g/dL (32.4-36.7); MEAN CELL VOLUME 85.9 fL (81.5-99.8); MEAN PLATELET VOLUME 10.3 fL (8.7-11.7); PLATELET CLUMPS FLAG 10 (0-99); PLATELET COUNT 222 10^3/uL (150-400); RED BLOOD CELL COUNT 5.19 10^6/uL (4.40-6.38); RED CELL DISTRIBUTION WIDTH 12.8 % (11.5-15.2)
[2016-10-09 06:14] LABS: ANION GAP 7 mEq/L (8-16); CALCIUM 8.8 mg/dL (8.5-10.4); CARBON DIOXIDE 33 mEq/l (22-31); CHLORIDE 99 mEq/L (97-110); CREATININE 0.7 mg/dL (0.7-1.3); GLOMERULAR FILTRATION RATE > 60; GLUCOSE 96 mg/dL (70-100); POTASSIUM 4.2 mEq/L (3.5-5.2); SODIUM 139 mEq/L (134-144)
[2016-10-09 06:25] LABS: INR 1.97 (0.83-1.16); PROTIME(PATIENT) 22.5 SEC (12.0-15.0)
[2016-10-09] MEDS: ACETAMINOPHEN 325 MG TAB PO PRN ×3 (07:55→16:48)
[2016-10-09] MEDS: oxyCODONE IR 5 MG TAB PO PRN ×4 (07:55→20:27)
[2016-10-09] MEDS: FUROSEMIDE 20 MG TAB PO SCH (08:37)
[2016-10-09] MEDS: DILTIAZEM XR 240 MG CAP PO SCH (08:37)
[2016-10-09] MEDS: ENOXAPARIN 100 MG/ML SYR SC SCH ×2 (08:37→20:18)
[2016-10-09] MEDS: PRESERVISION AREDS2 FORMULA EYE VIT 1 EACH PO SCH ×2 (08:37→20:18)
[2016-10-09] MEDS: OMEGA-3 FATTY ACIDS 1,000 MG CAP PO SCH (08:37)
[2016-10-09] MEDS: DIGOXIN 125 MCG TAB PO SCH (11:12)
--- NOTE | 2016-10-09 15:05 | HOSPPROG ---
Hospitalist Progress Note Assessment/Plan: Assessment: 76 yo M p/w acute on chronic hypoxic respiratory failure from malignant effusion 2/2 mesothelioma 1. Malignant leural effusion with consolidation: 2/2 mesothelimoma, S/P Levaquin tx for possible CAP, S/p 2 thoras (2.5L and 2.9L, exudative), Effusion reaccumulated and attempt at repeat thora unsuccessful due to loculations. - S/P VATS, POD #4 - ongoing drainage 155cc o/n - chest tube mgmt per gen surg - CXR w/ worsening accumulation since 10.07, likely in the other loculated areas - d/w Dr. Morley, I will contact Dr. Badillo and discuss whether pleurex cath appropriate while patient awaits chemo, or whether additional tubes needed for other loculations 2. Acute on chronic hypoxemic respiratory failure: Evidenced by SpO2 85% on 4L NC on presentation w/ objective tachypnea (RR 25-28) and symptomatic shortness of breath/labored breathing prompting his presentation, 2/2 malignant effusions - required up to 6L NC, now weaning 3. Atrial flutter: Stimulated by pulm process. Chads-vasc 3, 4% annual stroke risk. - Dilt, Dig for rate control - cont coumadin, remains sub-therapeutic, pharmacy dosing - d/c lovenox when INR >2 (likely tomorrow) 4. Chronic hypertension: anti-hypertensives held due to lowish BP's. - resumed Norvasc 5. Suspected mesothelioma: Pre-rubio path review, getting final stains - appreciate Dr. Morley's consultation today, he has discussed the chemo options w/ patient and need to give B12/folate 5-7 days PRIOR to starting tx - ideally patient would have outpt PET scan prior to tx - will address the possibility of pleurex w/ Dr. Badillo 6. Atelectasis: Present below effusions on CXR, cont IS Diet. Regular PPx. High risk, on lovenox Code. Full Dispo. ADD uncertain, ongoing chest tube output Subjective: Patient is saddened by the news of his malignancy, counseled patient regarding symptoms of pain, continuing ambulation and working on pulmonary during this Objective: Vital Signs Temp Pulse Resp BP Pulse Ox 36.6 C 88 15 108/70 91 L 10/09/16 11:25 10/09/16 11:25 10/09/16 11:25 10/09/16 11:25 10/09/16 11:25 Microbiology 10/05/16 09:13 Gram Stain - Final Pleural Fluid - Aspirate Laboratory Results 10/09/16 05:15 10/09/16 05:15 10/08/16 10/09/16 10/10/16 05:59 05:59 05:59 Intake Total 400 1500 Output Total 1067 759 Balance -667 741 PT 22.5 SEC (12.0-15.0) H 10/09/16 05:15 INR 1.97 (0.83-1.16) H 10/09/16 05:15 - Time Spent With Patient Time Spent with Patient: greater than 25 minutes Time Spent with Patient: Greater than 25 minutes spent on this patients care, greater than 50% of time spent counseling, educating, and coordinating care regarding the above mentioned plan. - Physical Exam Constitutional: no apparent distress, appears nourished, uncomfortable Neurologic: AAOx3 Psychiatric: interacting appropriately, not anxious, not encephalopathic, thought process linear ICD10 Worksheet Patient Problems: Problems Problem Status Onset Hypoxemia Acute Recurrent right pleural effusion Acute Atrial flutter Acute Pleural effusion, right Acute
--- NOTE | 2016-10-09 15:24 | PDINTPN ---
Dental Surgeon Progress Note Assessment/Plan: Assessment/plan: 76 M with recurrent pleural effusion s/p multiple taps and finally VATS decortication and pleural biopsy. Initially thought to be parapneumonic effusion , but path consistent with mesothelioma. * Mesothelioma- discussed with patient and at bedside. Obviously will defer to heme/onc for plans, but at their request I did say that this was typically a difficult tumor to treat. * Pleural effusion- No air leak on CT, but at least 155 ml output in last 24 hours on water seal. Defer to surgery to dc when ready, but getting closer (my usual parameter is <100-150/24 hrs. * * Objective: Vital Signs Temp Pulse Resp BP Pulse Ox 36.6 C 88 15 108/70 91 L 10/09/16 11:25 10/09/16 11:25 10/09/16 11:25 10/09/16 11:25 10/09/16 11:25 Microbiology 10/05/16 09:13 Gram Stain - Final Pleural Fluid - Aspirate Laboratory Results 10/09/16 05:15 10/09/16 05:15 10/08/16 10/09/16 10/10/16 05:59 05:59 05:59 Intake Total 400 1500 Output Total 1067 759 Balance -667 741 PT 22.5 SEC (12.0-15.0) H 10/09/16 05:15 INR 1.97 (0.83-1.16) H 10/09/16 05:15 Physical Exam - Physical Exam General Appearance: alert, no apparent distress, obese EENT: PERRL/EOMI Neck: supple Respiratory: chest non-tender, lungs clear, normal breath sounds, No respiratory distress Cardiac/Chest: normal peripheral pulses, regular rate, rhythm, No edema Abdomen: normal bowel sounds, non-tender, soft, No distended Skin: normal color, warm/dry, No cyanosis Lymphatic: no adenopathy Extremities: non-tender, No pedal edema Neuro/Psych: alert, normal mood/affect, oriented x 3 ICD10 Worksheet Patient Problems: Problems Problem Status Onset Atrial flutter Acute Pleural effusion, right Acute Hypoxemia Acute Recurrent right pleural effusion Acute
[2016-10-09] MEDS ORDERED: WARFARIN SODIUM 5 MG TAB PO ONE (16:00)
[2016-10-09] MEDS ORDERED: CYANO/VITAMIN B12 1000 MCG/ML VIAL IM ONE (16:43)
--- NOTE | 2016-10-09 17:44 | GCON ---
[f rep st] CONSULTATION MEDICAL ONCOLOGY CONSULTATION The patient is a very pleasant 76-year-old male who in about mid August began noticing some increasing shortness of breath. He was found to have a large effusion, and a thoracentesis was performed with greater than 2 L removed. Cultures and cytology were unremarkable. He was felt to have possibly a pneumonia and was treated with antibiotics; however, he was readmitted approximately a week ago with a recurrent effusion. A repeat thoracentesis showed 2900 cc of orange/yellow fluid with a pH of 7.4 and an LDH of 650. Cultures were negative. Cytology was pending. Because of the recurrent effusion, Surgery was consulted, and on 10/05, Dr. Cao performed a VATS procedure with decortication and drainage. The lung was noted to be adherent to the chest wall, and diffuse thickening of the pleura was noted. A biopsy of the posterolateral pleura was performed. Preliminary analysis of that shows a mesothelioma, although additional stains are pending. Since the procedure, his chest tube has continued to drain around 100-150 cc of fluid daily. He is requiring oxygen. He was also diagnosed with atrial fibrillation/flutter and is now on anticoagulation. He does not have any particular occupational exposure. 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 There is a remote history of tobacco use. He also has history of hypertension, glaucoma and macular degeneration, tonsillectomy, and bilateral total knee arthroplasty. MEDICATIONS: On admission include aspirin, amlodipine, atorvastatin, PreserVision, hydrochlorothiazide, latanoprost, losartan, and fish oil. SOCIAL HISTORY: He is retired, information technology. [id number] smoking history. FAMILY HISTORY: Generally noncontributory. PHYSICAL EXAMINATION: GENERAL: Today, he is a pleasant male, quite alert, using oxygen. VITAL SIGNS: Blood pressure 108/70. He is afebrile. Sat 91% on 3 L. LUNGS: Diminished breath sounds in the right base. CARDIAC: Exam is unremarkable. LABORATORY DATA: CBC is generally unremarkable, as is a chemistry panel. His most recent CT scan of the chest shows multifocal right lung pulmonary consolidation and scattered areas of ground-glass opacity. There are also multiloculated pleural fluid collections. There is no evidence of thromboembolic disease. IMPRESSION: Presentation is quite consistent with a mesothelioma, and my understanding is pathology is quite suspicious of this, although we will await final pathology. I think it is quite unlikely that he would be a surgical candidate for an extrapleural pneumonectomy. Generally speaking, this is a difficult cancer to treat with somewhat limited survival, although there may be some response and relief of symptoms with systemic chemotherapy. Generally, we consider cisplatin-based chemotherapy with Alimta plus/minus bevacizumab. There is a clinical trial that he might be eligible for. It would be ideal to place him on that, although he might need more emergent treatment. This trial looks at standard cisplatin and Alimta, with the possible addition of a targeted kinase inhibitor. In anticipation of starting some type of treatment, I am giving him B12 and folate today. This needs to be done 5-7 days before starting pemetrexed/alimta. A staging PET scan would be ideal, but it might be difficult with his chest tube and inpatient status. If the VATS procedure has not helped his fluid production, which it may well not given the presumed malignant nature, the possibility of a PleurX catheter would at least be a consideration, although this may be hindered by the fact that the fluid is becoming somewhat loculated, we will discuss that with the other involved physicians. These issues were discussed in detail with the patient and his , and our service will continue to follow with you. /[id number]/MODL MTDD
[2016-10-09] MEDS ORDERED: IOPAMIDOL (ISOVUE-300) 100 ML BTL IV ONE (18:05)
--- NOTE | 2016-10-09 19:36 | SOAPPROG ---
SOAP Progress Note Assessment/Plan: Assessment: Await CT for poss loculations. Options d/w patient in detail. Questions answered. Will cont CT for now; would prefer to see <100 cc/day for removal. Plan: 10/09/16 19:35 Subjective: Patient with some discomfort at CT site. Denies cough. No SOB. Objective: Vital Signs Temp Pulse Resp BP Pulse Ox 36.4 C 77 14 126/75 H 92 10/09/16 16:00 10/09/16 16:00 10/09/16 16:00 10/09/16 16:00 10/09/16 16:00 Microbiology 10/05/16 09:13 Gram Stain - Final Pleural Fluid - Aspirate Laboratory Results 10/09/16 05:15 10/09/16 05:15 10/08/16 10/09/16 10/10/16 05:59 05:59 05:59 Intake Total 400 1500 1210 Output Total 1067 759 95 Balance -240 443 1084 PT 22.5 SEC (12.0-15.0) H 10/09/16 05:15 INR 1.97 (0.83-1.16) H 10/09/16 05:15 Alert, NAD CT tidals well, no leak noted. OP 155+ ICD10 Worksheet Patient Problems: Problems Problem Status Onset Atrial flutter Acute Pleural effusion, right Acute Hypoxemia Acute Recurrent right pleural effusion Acute
[2016-10-09] MEDS: LATANOPROST 0.005% 2.5 ML OPHT DROPS EACHEYE SCH (20:18)
[2016-10-09] MEDS: amLODIPine BESYLATE 5 MG TAB PO SCH (20:18)
[2016-10-09] MEDS: ATORVASTATIN CALCIUM 20 MG TAB PO SCH (20:18)
[2016-10-10 06:52] LABS: % IMMATURE GRANULYOCYTES 0.6 % (0.0-1.1); ABSOLUTE IMMATURE GRANULOCYTES 0.07 10^3/uL (0.00-0.10); ADD DIFF? NO; ADD MORPH? NO; ADD SCAN? NO; ATYPICAL LYMPHOCYTE FLAG 10 (0-99); FRAGMENT RBC FLAG 0 (0-99); HEMATOCRIT 41.4 % (40.0-51.0); HEMOGLOBIN 13.6 g/dL (13.7-17.5); LEFT SHIFT FLG 10 (0-99); LIPEMIA HEMOLYSIS FLAG 80 (0-99); MEAN CELL HEMOGLOBIN 28.8 pg (27.9-34.1); MEAN CELL HEMOGLOBIN CONCENTR. 32.9 g/dL (32.4-36.7); MEAN CELL VOLUME 87.5 fL (81.5-99.8); MEAN PLATELET VOLUME 10.9 fL (8.7-11.7); PLATELET CLUMPS FLAG 0 (0-99); PLATELET COUNT 197 10^3/uL (150-400); RED BLOOD CELL COUNT 4.73 10^6/uL (4.40-6.38); RED CELL DISTRIBUTION WIDTH 13.1 % (11.5-15.2)
[2016-10-10 07:15] LABS: INR 3.27 (0.83-1.16); PROTIME(PATIENT) 33.8 SEC (12.0-15.0)
[2016-10-10] MEDS: ACETAMINOPHEN 325 MG TAB PO PRN ×4 (09:06→20:02)
[2016-10-10] MEDS: oxyCODONE IR 5 MG TAB PO PRN ×4 (09:06→20:03)
[2016-10-10] MEDS: DILTIAZEM XR 240 MG CAP PO SCH (09:06)
[2016-10-10] MEDS: PRESERVISION AREDS2 FORMULA EYE VIT 1 EACH PO SCH ×2 (09:07→20:02)
[2016-10-10] MEDS: OMEGA-3 FATTY ACIDS 1,000 MG CAP PO SCH (09:07)
[2016-10-10] MEDS: DIGOXIN 125 MCG TAB PO SCH (09:07)
[2016-10-10] MEDS: FUROSEMIDE 20 MG TAB PO SCH (09:07)
[2016-10-10] MEDS: FOLIC ACID 1 MG TAB PO SCH (09:07)
[2016-10-10] MEDS ORDERED: PHYTONADIONE 2.5 MG/2.5 ML ORAL UDL PO ONE (11:42)
--- NOTE | 2016-10-10 12:06 | SOAPPROG ---
SOAP Progress Note Assessment/Plan: Assessment: 1. Malignant pleural process. Path not c/w mesothelioma, additional stains pending, some concern about gi process 2. SOB, loculated pleural fluid increasing 3. atrial arrhythmia Plan:ct abd/pelvis today. plan is for repeat vats tomorrow, will check cea, ca 19-9, review final path when available 10/10/16 12:03 Subjective: Feels ok, some chest tube pain Objective: Vital Signs Temp Pulse Resp BP Pulse Ox 99.3 F 117 H 15 102/66 91 L 10/10/16 07:34 10/10/16 07:34 10/10/16 07:34 10/10/16 07:34 10/10/16 07:34 Microbiology 10/05/16 09:13 Gram Stain - Final Pleural Fluid - Aspirate Laboratory Results 10/10/16 06:20 10/09/16 05:15 10/09/16 10/10/16 10/11/16 05:59 05:59 05:59 Intake Total 1500 1560 Output Total 759 395 Balance 741 1165 PT 33.8 SEC (12.0-15.0) H D 10/10/16 06:20 INR 3.27 (0.83-1.16) H 10/10/16 06:20 ICD10 Worksheet Patient Problems: Problems Problem Status Onset Atrial flutter Acute Pleural effusion, right Acute Hypoxemia Acute Recurrent right pleural effusion Acute
--- NOTE | 2016-10-10 12:56 | SOAPPROG ---
SOAP Progress Note Assessment/Plan: Assessment: Options d/w patient, rec repeat VATS. Will hold coumadin and start vit K; recheck INR in AM. Plan for surgery 10/11/16. Await abd/pelvis CT for poss GI source. Plan: 10/09/16 19:35 10/10/16 12:54 Subjective: Patient without complaints, pain improved. Objective: Vital Signs Temp Pulse Resp BP Pulse Ox 36.7 C 88 16 116/67 93 10/10/16 12:28 10/10/16 12:28 10/10/16 12:28 10/10/16 12:28 10/10/16 12:28 Microbiology 10/05/16 09:13 Gram Stain - Final Pleural Fluid - Aspirate Laboratory Results 10/10/16 06:20 10/09/16 05:15 10/09/16 10/10/16 10/11/16 05:59 05:59 05:59 Intake Total 1500 1560 Output Total 759 395 Balance 741 1165 PT 33.8 SEC (12.0-15.0) H D 10/10/16 06:20 INR 3.27 (0.83-1.16) H 10/10/16 06:20 Alert, NAD CT tidals well, no leak CT serosang ICD10 Worksheet Patient Problems: Problems Problem Status Onset Atrial flutter Acute Pleural effusion, right Acute Hypoxemia Acute Recurrent right pleural effusion Acute
[2016-10-10 13:28] LABS: LACTATE DEHYDROGENASE 761 IU/L (313-618)
[2016-10-10] MEDS ORDERED: IOPAMIDOL (ISOVUE-300) 100 ML BTL IV ONE (15:15)
[2016-10-10] MEDS ORDERED: WARFARIN SODIUM 2.5 MG TAB PO ONE (16:00)
--- NOTE | 2016-10-10 16:26 | HOSPPROG ---
Hospitalist Progress Note Assessment/Plan: Assessment: 76 yo M p/w acute on chronic hypoxic respiratory failure from malignant effusion 2/2 malignancy of unknown type 1. Malignant pleural effusion with consolidation: 2/2 malignancy of unknown type, S/P Levaquin tx for possible CAP, S/p 2 thoras (2.5L and 2.9L, exudative) , Effusion reaccumulated and attempt at repeat thora unsuccessful due to loculations. - S/P VATS, POD #5 - ongoing drainage via CT - CT demonstrating several loculations of increasing size - d/w Dr. Badillo, he will take for VATS tomorrow - counseled patient and that he will either require pleurex at DC or possibly indwelling chest tube, depending on response to VATS and how fast the malignant effusions reaccumulate 2. Acute on chronic hypoxemic respiratory failure: Evidenced by SpO2 85% on 4L NC on presentation w/ objective tachypnea (RR 25-28) and symptomatic shortness of breath/labored breathing prompting his presentation, 2/2 malignant effusions - required up to 6L NC, now weaning - counseled to keep home o2, so as not to lose benefit 3. Atrial flutter: Stimulated by pulm process. Chads-vasc 3, 4% annual stroke risk. - Dilt, Dig for rate control - given Vit K today and holding coumadin for procedure tomorrow - check INR in AM, and if > 2, will give FFP 4. Chronic hypertension: anti-hypertensives held due to lowish BP's. - resumed Norvasc 5. Suspected malignancy: Pre-rubio path review, getting final stains - d/w Dr. Morley, path now not c/w mesothelioma, more likely GI origin - getting abd/pelvis CT to eval for primary, may require colonscopy (last 3 yrs ago) if neg 6. Atelectasis: Present below effusions on CXR, cont IS Diet. Regular PPx. High risk, place SCDs Code. Full Dispo. ADD uncertain, ongoing chest tube output Subjective: Counseled patient and regarding home oxygen, persistent effusions, anticipated time course of hospitalization Objective: Vital Signs Temp Pulse Resp BP Pulse Ox 36.7 C 88 16 116/67 93 10/10/16 12:28 10/10/16 12:28 10/10/16 12:28 10/10/16 12:28 10/10/16 12:28 Microbiology 10/05/16 09:13 Gram Stain - Final Pleural Fluid - Aspirate Laboratory Results 10/10/16 06:20 10/09/16 05:15 10/09/16 10/10/16 10/11/16 05:59 05:59 05:59 Intake Total 1500 1560 Output Total 759 395 Balance 741 1165 PT 33.8 SEC (12.0-15.0) H D 10/10/16 06:20 INR 3.27 (0.83-1.16) H 10/10/16 06:20 - Time Spent With Patient Time Spent with Patient: greater than 35 minutes Time Spent with Patient: Greater than 35 minutes spent on this patients care, greater than 50% of time spent counseling, educating, and coordinating care regarding the above mentioned plan. - Physical Exam Constitutional: no apparent distress, uncomfortable Respiratory: reduced air movement (Right base), rhonchi (Right mid and lower segment), No expiratory wheeze, No bronchial breath sounds, No respiratory distress Neurologic: AAOx3 Psychiatric: interacting appropriately, not anxious, not encephalopathic, thought process linear ICD10 Worksheet Patient Problems: Problems Problem Status Onset Hypoxemia Acute Recurrent right pleural effusion Acute Atrial flutter Acute Pleural effusion, right Acute
[2016-10-10] MEDS: amLODIPine BESYLATE 5 MG TAB PO SCH (20:03)
[2016-10-10] MEDS: ATORVASTATIN CALCIUM 20 MG TAB PO SCH (20:03)
[2016-10-10] MEDS: LATANOPROST 0.005% 2.5 ML OPHT DROPS EACHEYE SCH (20:04)
[2016-10-11] MEDS: ACETAMINOPHEN 325 MG TAB PO PRN (05:40)
[2016-10-11] MEDS: oxyCODONE IR 5 MG TAB PO PRN ×2 (05:41→18:16)
[2016-10-11 06:47] LABS: % IMMATURE GRANULYOCYTES 0.4 % (0.0-1.1); ABSOLUTE IMMATURE GRANULOCYTES 0.03 10^3/uL (0.00-0.10); ADD DIFF? NO; ADD MORPH? NO; ADD SCAN? NO; ATYPICAL LYMPHOCYTE FLAG 0 (0-99); FRAGMENT RBC FLAG 0 (0-99); HEMATOCRIT 39.5 % (40.0-51.0); HEMOGLOBIN 13.2 g/dL (13.7-17.5); LEFT SHIFT FLG 10 (0-99); LIPEMIA HEMOLYSIS FLAG 80 (0-99); MEAN CELL HEMOGLOBIN 29.2 pg (27.9-34.1); MEAN CELL HEMOGLOBIN CONCENTR. 33.4 g/dL (32.4-36.7); MEAN CELL VOLUME 87.4 fL (81.5-99.8); MEAN PLATELET VOLUME 10.9 fL (8.7-11.7); PLATELET CLUMPS FLAG 10 (0-99); PLATELET COUNT 176 10^3/uL (150-400); RED BLOOD CELL COUNT 4.52 10^6/uL (4.40-6.38); RED CELL DISTRIBUTION WIDTH 13.3 % (11.5-15.2)
[2016-10-11 07:00] LABS: INR 1.49 (0.83-1.16)
[2016-10-11] MEDS ORDERED: BUPIVACAINE/EPI 0.5% 30 ML SDV ONE (07:05)
[2016-10-11] MEDS: FOLIC ACID 1 MG TAB PO SCH (07:56)
[2016-10-11] MEDS: PRESERVISION AREDS2 FORMULA EYE VIT 1 EACH PO SCH ×2 (07:56→22:13)
[2016-10-11] MEDS: FUROSEMIDE 20 MG TAB PO SCH (07:57)
[2016-10-11] MEDS: OMEGA-3 FATTY ACIDS 1,000 MG CAP PO SCH (07:57)
[2016-10-11] MEDS: DILTIAZEM XR 240 MG CAP PO SCH (08:52)
[2016-10-11] MEDS: DIGOXIN 125 MCG TAB PO SCH (11:31)
[2016-10-11] MEDS ORDERED: ceFAZolin 2 GM/DEXTROSE 100 ML IV ONE (11:39)
[2016-10-11] MEDS ORDERED: fentaNYL 250 MCG/5 ML INJ ONE (11:49)
[2016-10-11] MEDS ORDERED: PROPOFOL 200 MG/20 ML VIAL ONE (11:49)
[2016-10-11] MEDS ORDERED: LIDOCAINE 2% 5 ML SDV ONE (11:49)
[2016-10-11] MEDS ORDERED: ONDANSETRON 4 MG/2 ML VIAL ONE (11:49)
[2016-10-11] MEDS ORDERED: DEXAMETHASONE 4 MG/ML VIAL ONE (11:49)
[2016-10-11] MEDS ORDERED: ROCURONIUM 50 MG/5 ML VIAL ONE (11:49)
[2016-10-11] MEDS ORDERED: SUGAMMADEX SODIUM 200 MG/2 ML VIAL IVP ONE (11:50)
[2016-10-11] MEDS ORDERED: MIDAZOLAM 2 MG/2 ML VIAL ONE (12:05)
--- NOTE | 2016-10-11 12:08 | GCON ---
[f rep st] CONSULTATION DATE OF CONSULTATION: 10/11/2016 CHIEF COMPLAINT: Abnormal CT scan. I am asked to see this patient in consultation by Dr. Triplett for evaluation of abnormal CT scan and malignant effusion. HISTORY OF PRESENT ILLNESS: Patient is a 76-year-old known to our practice for undergoing screening colonoscopies in the past. Has last seen Dr. Childs in 2013 for a colonoscopy. At that point, he had polyps removed that were tubular adenomas and hyperplastic. He was noted to have diverticul osis. He also had a remote endoscopy for GERD symptoms but without significant abnormalities. He w as admitted last month for shortness of breath. The patient was found to have an effusion that then recurred, was readmitted on October 01 for shortness of breath and recurrent effusion and then was evaluated and found to have malignant cause of unknown primary. He underwent a CT scan that showed abnormal masslike lesion in the duodenum as well as an abnormality and irregular thickening in the s igmoid colon, concerning for malignancy. He also is known to have a dilated duct on his common duct . The patient had no specific symptoms. He denies abdominal pain. He has had no nausea or vomitin g. No early satiety. He has had some weight loss since here on the admission in the hospital. No diarrhea or constipation. No blood in his stools or melena. He does have ongoing shortness of claudia th. He is to undergo a VATS procedure today for his recurrent malignant pleural effusion. ALLERGIES: Patient has no known drug allergies. CURRENT MEDICATIONS: Tylenol, , Norvasc, Lipitor, digoxin, diltiazem, folic acid, Lasix, Dilaudid, ondansetron and oxycodone. PAST MEDICAL HISTORY: 1. Recurrent pleural effusion consistent with malignant effusion. 2. 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 3. Hypertension. 4. Glaucoma. 5. Macular degeneration. 6. Diverticulosis. 7. History of colon polyps. FAMILY HISTORY: Notable for esophageal cancer in his father. SOCIAL HISTORY: History of smoking, drinks alcohol 1-2 drinks a day. REVIEW OF SYSTEMS: I have done a complete review of systems which is negative except for pertinent positives and negatives as noted above in the HPI. PHYSICAL EXAM: VITAL SIGNS: He is afebrile at 36.7, BP 125/77, pulse is tachy at 110. CONSTITUTIO NAL: He is alert and oriented. EYES: There is no scleral icterus. HEENT: No oral lesions. CARD IOVASCULAR: Irregular regular rhythm. CHEST: Clear to auscultation. He has a chest tube in place . Decreased breath sounds on the right. GI: Positive bowel sounds. Soft, nontender. No hepatosp lenomegaly. No masses. NEUROLOGIC: Grossly nonfocal. SKIN: No rashes. XRAY/DATA: Hematocrit is 36 with a white count of 8. ProTime is better today with a ProTime of [address] scan done 10/10/2016 shows circumferential thickening of the 2nd portion of the duodenum with com mon duct dilations, suspicious for malignancy and irregular thickening of the sigmoid colon, suspici ous for malignancy, right pleural thickening and nodularity, degenerative disease of the spine at L3 thru S1, indeterminate 1.8 cm splenic lesion. ASSESSMENT: Patient with abnormal CT scan with 2 areas of concern involving the duodenum with circu mferential thickening and irregular thick in the sigmoid, both worrisome for malignancy in the setti ng of a malignant pleural effusion of unknown primary. Hospital staff is requesting endoscopic eval uation for biopsy to obtain tissue diagnosis for potential primary. Patient overall will be high ri sk for procedures given his pulmonary status. He is to undergo a VATS procedure today. Patient root s not feel that he would be able to do a bowel prep after that and would like to delay a day. There fore my partner, Dr. Aguilar, will see the patient tomorrow after the procedure to see if he will be ab le to do a bowel prep in anticipation of an upper and lower endoscopy for biopsy this admission. Thanks for this consult. /[id number]/MODL
[2016-10-11] MEDS: DILTIAZEM 30 MG TAB PO SCH ×2 (14:18→18:16)
[2016-10-11] MEDS ORDERED: fentaNYL 100 MCG/2 ML INJ ONE (14:50)
--- NOTE | 2016-10-11 15:01 | HOSPPROG ---
Hospitalist Progress Note Assessment/Plan: INTERVAL SUMMARY & DAILY PROGRESS NOTE DATE OF ADMISSION: 10/01/2016 INTERVAL DIAGNOSES 1. Malignant pleural effusion with consolidation 2. Acute on chronic hypoxic respiratory failure 3. Atrial flutter 4. Chronic hypertension 5. Adenocarcinoma, poorly differentiated 6. Atelectasis CONSULTATIONS General surgery, Oncology, Gastroenterology PROCEDURES / IMAGING Vats procedure x2 CHIEF COMPLAINT Acute shortness of breath SUBJECTIVE Ongoing right-sided chest pain HOSPITAL COURSE BY PROBLEM Patient presented with acute shortness of breath and respiratory failure secondary to recurrent malignant effusion on the right side. Was originally uninterpretable whether the patient had pneumonia with parapneumonic effusion, as his effusion was exudative. He consequently received a full course of IV antibiotics as well as initial thoracentesis and then a VATS procedure. He had ongoing chest tube drainage but chest imaging demonstrated worsening of his effusion and the decision was made to repeat the VATS procedure on 10/11 to decorticate some of the loculations. This recurrent effusion is felt to be most likely secondary to metastatic adenocarcinoma and, although the initial preliminary pathology had suggested mesothelioma, further staining demonstrated that this was most likely a GI tumor. Chest abdomen and pelvis CT imaging demonstrated that he may have a tumor near the duodenum as well as sigmoid and gastroenterology has been consulted for colonoscopy to be performed on 10/13 after the patient has been given time to adequately recovered from his VATS procedure. At the present time, it is unclear whether the patient will eventually have his chest tube changed to a PleurX catheter so he can discharge home and undergo outpatient chemotherapy, or whether he will initiate inpatient chemotherapy if he has ongoing chest tube output. Assessment: 76 yo M p/w acute on chronic hypoxic respiratory failure from malignant effusion 2/2 adenocarcinoma, unknown primary GI location 1. Malignant pleural effusion with consolidation: 2/2 adenocarcinoma, S/P Levaquin tx for possible CAP, S/p 2 thoras (2.5L and 2.9L, exudative), Effusion reaccumulated and attempt at repeat thora unsuccessful due to loculations, 1st VATS did not relieve all of the loculations. - S/P VATS x 2 (most recent 10/11) - ongoing drainage via CT - d/w Dr. Badillo, we agree that he will either require pleurex at DC (for outpatient chemo) or possibly indwelling chest tube whilst he receives inpatient chemotherapy, depending on whether the chest tubes fully drain post- VATS or whether the malignancy continues to produce significant amount of fluid 2. Acute on chronic hypoxemic respiratory failure: 2/2 malignant effusions - required up to 6L NC, now weaning - counseled to keep home o2, so as not to lose benefit 3. Atrial flutter: Stimulated by pulm process. Chads-vasc 3, 4% annual stroke risk. - Cont Dig, increase Dilt to 300mg daily - restart couamadin s/p colonoscopy, does not require bridging as he has not had prior CVA or VTE 4. Chronic hypertension: resumed norvasc 5. Adenocarcinoma: Poorly differentiated - CT abd indicating possible GI tumor around duodenum, sigmoid - d/w Dr. Mcgee, since patient is very cautious about the pain he will experience post-VATS, colonoscopy is planned for 10/13 - type of chemo will depend on whether it is primarily from upper GI vs. colon 6. Atelectasis: Present below effusions on CXR, cont IS Diet. Regular PPx. High risk, place SCDs Code. Full Dispo. ADD uncertain, ongoing chest tube output Subjective: Patient reports he is currently chest pain-free status post VATS procedure, patient counseled regarding duration of chest tubes and the anticipation that he will either require inpatient chemotherapy if his chest tube drainage does not slow verses removal and/or PleurX catheter placement with outpatient chemo Objective: Vital Signs Temp Pulse Resp BP Pulse Ox 36.7 C 117 H 14 125/77 H 98 10/11/16 08:00 10/11/16 08:00 10/11/16 08:00 10/11/16 08:00 10/11/16 08:00 Microbiology 10/05/16 09:13 Gram Stain - Final Pleural Fluid - Aspirate Laboratory Results 10/11/16 06:20 10/09/16 05:15 10/10/16 10/11/16 10/12/16 05:59 05:59 05:59 Intake Total 1560 1390 Output Total 395 160 1 Balance 1165 1230 -1 PT 18.0 SEC (12.0-15.0) H D 10/11/16 06:20 INR 1.49 (0.83-1.16) H 10/11/16 06:20 - Time Spent With Patient Time Spent with Patient: greater than 25 minutes Time Spent with Patient: Greater than 25 minutes spent on this patients care, greater than 50% of time spent counseling, educating, and coordinating care regarding the above mentioned plan. - Physical Exam Constitutional: no apparent distress, appears nourished, not in pain Respiratory: reduced air movement (Right base), rhonchi (On inspiration right lateral segment), No expiratory wheeze, No bronchial breath sounds, No respiratory distress Psychiatric: not anxious, No agitated ICD10 Worksheet Patient Problems: Problems Problem Status Onset Hypoxemia Acute Recurrent right pleural effusion Acute Atrial flutter Acute Pleural effusion, right Acute
--- NOTE | 2016-10-11 16:30 | GCON ---
[f rep st] CONSULTATION DATE OF CONSULTATION: 10/11/2016 The patient is in the Recovery Room after a second attempted pleurodesis. To review, patient has a right-sided pleural process. Pathology shows a mildly differentiated mucin containing adenocarcinom a CK7 positive, suggestive of an upper GI origin. On CT scanning of the abdomen there is circumfere ntial thickening of the second portion of the duodenum with some common bile duct dilatation possibl y suspicious for malignancy. There is also irregular thickening of the sigmoid colon suspicious for malignancy although the area is under-distended. There is an indeterminate 1.8 cm splenic lesion. The CEA is elevated at 31, a CA-19-9 is normal at 29, LDH is elevated at 761. IMPRESSION: Adenocarcinoma presumably metastatic to the right pleural surface with recurrent locula shi pleural effusion status post a second VATS pleurodesis. I think we should continue to search fo r primary. There are suggestions of either an upper or lower GI primary on CT scan although in this situation I would probably favor something in the upper GI tract. He is scheduled for endoscopies in a couple of days when he has recovered from his VATS. Further treatment will depend on the outco me of that. I suspect he will require systemic chemotherapy. I did discuss with the that ther e are times when we cannot determine the exact origin of a malignancy and that these are called canc ers of unknown primary. We spent some time discussing that entity. Dr. Badillo has indicated that he will biopsy the pleural surface again at the time of the surgery today and we will review that al so when available. /[id number]/MODL
[2016-10-11 16:31] LABS: % IMMATURE GRANULYOCYTES 0.5 % (0.0-1.1); ABSOLUTE IMMATURE GRANULOCYTES 0.07 10^3/uL (0.00-0.10); ADD DIFF? NO; ADD MORPH? NO; ADD SCAN? NO; ATYPICAL LYMPHOCYTE FLAG 10 (0-99); FRAGMENT RBC FLAG 0 (0-99); HEMATOCRIT 39.3 % (40.0-51.0); LEFT SHIFT FLG 10 (0-99); LIPEMIA HEMOLYSIS FLAG 80 (0-99); MEAN CELL HEMOGLOBIN 29.1 pg (27.9-34.1); MEAN CELL HEMOGLOBIN CONCENTR. 33.1 g/dL (32.4-36.7); MEAN CELL VOLUME 87.9 fL (81.5-99.8); MEAN PLATELET VOLUME 10.7 fL (8.7-11.7); PLATELET CLUMPS FLAG 10 (0-99); PLATELET COUNT 193 10^3/uL (150-400); RED BLOOD CELL COUNT 4.47 10^6/uL (4.40-6.38); RED CELL DISTRIBUTION WIDTH 13.2 % (11.5-15.2)
[2016-10-11] MEDS ORDERED: HYDROmorphONE/DILAUDID 1 MG/ML SYR IVP PRN (16:33)
--- NOTE | 2016-10-11 17:47 | POSTOPPROG ---
Post Op Note Date of Operation: 10/11/16 Surgeon: Edilson Badillo Distribution Supervisor: Denver Rodriguez Anesthesiologist: Dr. Santiago Anesthesia: GET(General Endotracheal) Pre-op Diagnosis: Loculated R effusion Post-op Diagnosis: Hematoma Procedure: VATS decorticatoin, pleural biopsy Findings: Multiple hematomas Inf/Abcess present in the surg proc area at time of surgery?: Yes Depth: Organ Space EBL: 500-1000
[2016-10-11] MEDS: amLODIPine BESYLATE 5 MG TAB PO SCH (19:58)
[2016-10-11] MEDS: LATANOPROST 0.005% 2.5 ML OPHT DROPS EACHEYE SCH (21:06)
[2016-10-11] MEDS: ATORVASTATIN CALCIUM 20 MG TAB PO SCH (22:13)
--- NOTE | 2016-10-11 23:31 | GOP ---
[f rep st] OPERATIVE REPORT DATE OF OPERATION: 10/11/2016 SURGEON: Ga Badillo MD HEDIS MANAGER: Denver Rodriguez, whose presence was requested by me and medically necessary for the safe an d timely completion of the case. ANESTHESIA: General endotracheal anesthesia with a double-lumen tube by Dr. Santiago. PREOPERATIVE DIAGNOSIS: Loculated pleural effusion. POSTOPERATIVE DIAGNOSIS: Loculated pleural hematomas. PROCEDURE PERFORMED: FINDINGS: Patient had multiple hematoma loculations, especially in the lower aspect of the right he mithorax. No distinct malignant lesion was identified. ESTIMATED BLOOD LOSS: 800 cc of new and old blood. INDICATIONS: A 76-year-old male, who is status post decortication for empyema. The patient develop ed subsequent loculated collections on CT scan. Patient also had carcinoma of identified primary in prior pleural biopsy. Risks and benefits of the procedure were discussed with the patient's family , their questions were answered and they wished to proceed. DESCRIPTION OF PROCEDURE: Patient was placed in supine position initially. After the induction of adequate double-lumen general endotracheal anesthesia, the patient was moved to the left lateral dec ubitus position. The chest tube was removed and he was prepped and draped in standard surgical [facility] ion. The old chest tube site was used to access the pleural cavity. This was markedly adherent fro m loculated old blood. Gentle blunt dissection was used with digital palpation and the camera to al low a second port to be placed. With this, using gentle blunt dissection and suction printing specialist, the lung was completely dissected from the apex to the base. The fissure was clearly identified. Ther e were multiple thick loculations with heavy peels. These were removed using blunt dissection. Sev eral sections of peel and parietal pleura were removed and sent for permanent section. The area was thoroughly irrigated and aspirated. No other lesions were identified. No significant source of bl eeding was noted. Two chest tubes were placed, both 32-Mosotho, with the angled chest tube being kimo caitlin in the inferior aspect anteriorly and a second 32-Mosotho chest tube being placed posteriorly tow papi the apex. These were both secured using 0 silk in an interrupted fashion. The lung was reinfla shi under direct vision and no bleeding, entrapment, or leak was noted. The remaining wound was irr igated and closed with a 4-0 Monocryl in subcuticular stitch. All wounds were sterilely dressed. T he patient was returned to the supine position and extubated. He was then taken to the PACU in stab le condition. PROCEDURES: Video-assisted thoracoscopic decortication and pleural biopsy. SURGEON: Dr. Badillo. /[id number]/MODL
[2016-10-12] MEDS: oxyCODONE IR 5 MG TAB PO PRN ×2 (06:46→12:43)
[2016-10-12 06:58] LABS: ALANINE AMINOTRANSFERASE 68 IU/L (21-72); ALBUMIN 2.2 g/dL (3.5-5.0); ALKALINE PHOSPHATASE 52 IU/L (38-126); ANION GAP 3 mEq/L (8-16); ASPARTATE AMINOTRANSFERASE 53 IU/L (17-59); BILIRUBIN,TOTAL 0.7 mg/dL (0.1-1.4); CALCIUM 7.8 mg/dL (8.5-10.4); CARBON DIOXIDE 29 mEq/l (22-31); CHLORIDE 99 mEq/L (97-110); CREATININE 0.7 mg/dL (0.7-1.3); GLOMERULAR FILTRATION RATE > 60; GLUCOSE 91 mg/dL (70-100); POTASSIUM 4.3 mEq/L (3.5-5.2); SODIUM 131 mEq/L (134-144); TOTAL PROTEIN 4.5 g/dL (6.3-8.2)
[2016-10-12 07:01] LABS: % IMMATURE GRANULYOCYTES 0.5 % (0.0-1.1); ABSOLUTE IMMATURE GRANULOCYTES 0.05 10^3/uL (0.00-0.10); ADD DIFF? NO; ADD MORPH? NO; ADD SCAN? NO; ATYPICAL LYMPHOCYTE FLAG 0 (0-99); FRAGMENT RBC FLAG 0 (0-99); HEMATOCRIT 33.3 % (40.0-51.0); HEMOGLOBIN 10.9 g/dL (13.7-17.5); LEFT SHIFT FLG 10 (0-99); LIPEMIA HEMOLYSIS FLAG 80 (0-99); MEAN CELL HEMOGLOBIN 28.7 pg (27.9-34.1); MEAN CELL HEMOGLOBIN CONCENTR. 32.7 g/dL (32.4-36.7); MEAN CELL VOLUME 87.6 fL (81.5-99.8); MEAN PLATELET VOLUME 11.2 fL (8.7-11.7); PLATELET CLUMPS FLAG 0 (0-99); PLATELET COUNT 172 10^3/uL (150-400); RED CELL DISTRIBUTION WIDTH 13.2 % (11.5-15.2)
[2016-10-12] MEDS: OMEGA-3 FATTY ACIDS 1,000 MG CAP PO SCH (08:59)
[2016-10-12] MEDS: FOLIC ACID 1 MG TAB PO SCH (08:59)
[2016-10-12] MEDS: FUROSEMIDE 20 MG TAB PO SCH (08:59)
[2016-10-12] MEDS: PRESERVISION AREDS2 FORMULA EYE VIT 1 EACH PO SCH ×2 (08:59→21:19)
[2016-10-12] MEDS ORDERED: MIDAZOLAM 2 MG/2 ML VIAL ONE (10:24)
[2016-10-12] MEDS ORDERED: fentaNYL 100 MCG/2 ML INJ ONE (10:25)
--- NOTE | 2016-10-12 11:13 | SOAPPROG ---
SOAP Progress Note Assessment/Plan: Assessment: s/p repeat VATS and evac hematoma/decortication/pleural biopsy. Await endoscopy results, check CXR. Cont CT's. Plan: 10/09/16 19:35 10/10/16 12:54 10/12/16 11:11 Subjective: No events, currently sedated from endoscopy. Objective: Vital Signs Temp Pulse Resp BP Pulse Ox 36.9 C 113 H 12 105/83 H 91 L 10/12/16 08:00 10/12/16 08:00 10/12/16 08:00 10/12/16 08:00 10/12/16 08:00 Microbiology 10/05/16 09:13 Gram Stain - Final Pleural Fluid - Aspirate Laboratory Results 10/12/16 06:20 10/12/16 06:20 10/11/16 10/12/16 10/13/16 05:59 05:59 05:59 Intake Total 1390 1480 Output Total 160 1311 Balance 1230 169 PT 18.0 SEC (12.0-15.0) H D 10/11/16 06:20 INR 1.49 (0.83-1.16) H 10/11/16 06:20 Sedated, NAD Sl tachy but reg CT with thin bloody drainage No leak noted ICD10 Worksheet Patient Problems: Problems Problem Status Onset Atrial flutter Acute Pleural effusion, right Acute Hypoxemia Acute Recurrent right pleural effusion Acute
[2016-10-12] MEDS ORDERED: GOLYTELY 4000 ML BTL PO ONE (11:22)
--- NOTE | 2016-10-12 11:33 | SOAPPROG ---
SOAP Progress Note Assessment/Plan: Assessment/Plan: Malignant pleural effusion (adenoCA). ? metastatic. - EGD; if negative, will attempt unprepped flex sig. Certainly, he is at increased risk for this procedure, with just having VATs surgery yesterday; however, suspect benefits outweigh the risks, and he will do well. 10/12/16 11:30 Subjective: cc: malignant pleural effusion Doing relatively well postop. Denies hematemesis, diarrhea, N/V. Objective: Vital Signs Temp Pulse Resp BP Pulse Ox 36.9 C 113 H 12 105/83 H 91 L 10/12/16 08:00 10/12/16 08:00 10/12/16 08:00 10/12/16 08:00 10/12/16 08:00 Microbiology 10/05/16 09:13 Gram Stain - Final Pleural Fluid - Aspirate Laboratory Results 10/12/16 06:20 10/12/16 06:20 10/11/16 10/12/16 10/13/16 05:59 05:59 05:59 Intake Total 1390 1480 Output Total 160 1311 Balance 1230 169 PT 18.0 SEC (12.0-15.0) H D 10/11/16 06:20 INR 1.49 (0.83-1.16) H 10/11/16 06:20 Normal LFTs. CBD dilated to 12 mm. Physical Exam - Physical Exam General Appearance: WD/WN, alert, no apparent distress EENT: PERRL/EOMI, normal ENT inspection, pharynx normal, TMs normal Neck: non-tender, full range of motion, supple, normal inspection Respiratory: lungs clear, normal breath sounds, No chest non-tender (s/p VATS, with chest tubes in place.) Cardiac/Chest: normal peripheral pulses, regular rate, rhythm Peripheral Pulses: 2+: carotid (R), carotid (L), femoral (R), femoral (L), dorsalis-pedis (R), dorsalis-pedis (L) Abdomen: normal bowel sounds, non-tender, soft Male Genitalia: deferred Rectal: deferred Back: Normal inspection Skin: normal color, warm/dry Lymphatic: no adenopathy Extremities: normal range of motion, non-tender, normal inspection, normal capillary refill Neuro/Psych: no motor/sensory deficits, alert, normal mood/affect, oriented x 3 ICD10 Worksheet Patient Problems: Problems Problem Status Onset Atrial flutter Acute Pleural effusion, right Acute Hypoxemia Acute Recurrent right pleural effusion Acute
--- NOTE | 2016-10-12 11:47 | GPN ---
[f rep st] PROCEDURE NOTE DATE OF PROCEDURE: 10/12/2016 PROCEDURE: Upper endoscopy with biopsy, flexible sigmoidoscopy. INDICATIONS AND PREPROCEDURE DIAGNOSES: Malignant pleural effusion, adenocarcinoma; abnormal imaging of the duodenum and sigmoid. POSTPROCEDURE DIAGNOSES: 1. Upper endoscopy. Essentially normal. Ampulla well seen, without abnormality. No mass seen in the duodenum. 2. Unprepped flexible sigmoidoscopy. Diverticulosis. No mass seen, but a very poor prep. PREMEDICATION: Fentanyl 125 mcg IV, Versed 5 mg IV. COMPLICATIONS: None. FINDINGS: After informed consent was obtained, the patient remained in the supine position. Video upper endoscope was placed under direct visualization and advanced. Esophagus was normal. Just on the gastric side of the GE junction was a very small nodule, soft. This was biopsied but doubt significant. Stomach was otherwise normal. Duodenum normal, with one mild, soft, small nodule near the ampulla, which was biopsied (suspect not significant , as well). The patient's gurney was then turned around. Unprepped flexible sigmoidoscopy was done to 60 cm. Upon slow withdrawal, diverticulosis only was seen. No mass was seen, but again, very poor prep. IMPRESSION: No duodenal abnormality found, in terms of a potential primary source for his malignant pleural effusion. I suspect the CT scan findings in terms of the duodenum were a false positive. No sigmoid abnormality seen either , but a very poor prep, so a lesion could certainly have been missed. PLAN: 1. We will proceed with a formal colonoscopy. We will begin his bowel prep and do the above once he is sufficiently "cleaned out.". 2. Further management, including if further evaluation is needed for his common bile duct dilation of 12 mm, depending on the above. Thank you for allowing me to help in the management of this patient. /[id number]/MODL MTDD
[2016-10-12] MEDS: DILTIAZEM CD 300 MG CAP PO SCH (12:15)
[2016-10-12] MEDS: DIGOXIN 125 MCG TAB PO SCH (12:43)
[2016-10-12] MEDS ORDERED: NS 500 ML IV ONE (12:53)
--- NOTE | 2016-10-12 13:08 | HOSPPROG ---
Hospitalist Progress Note Assessment/Plan: # Malignant pleural effusion with consolidation- presumed 2/2 adenocarcinoma, completed Levaquin tx for CAP, s/p 2 thoras (2.5L and 2.9L, exudative) Effusion reaccumulated and attempt at repeat thora unsuccessful due to loculations- 1st VATS did not relieve all of the loculations. CT chest (personally reviewed and interpreted) numerous loculations not drained by CT on admit s/p VATS x 2 on 10/11 - ongoing drainage via CT - pt will likely need Pleurx at DC # acute hypotension - suspect 2/2 anesthesia with VATS and EGD today - hgb 13-> 10 this am - fluid bolus now - holding diltiazem, lasix and norvasc - recheck hgb in am # Acute on chronic hypoxemic respiratory failure 2/2 malignant effusions - oxygen saturations 92% on 3L - CT in place # Atrial flutter with RVR - HR in 120's currently - Chads-vasc 3 - Cont Digoxin - holding higher dose Diltazem 300mg daily 2/2 hypotension - restart Coumadin s/p colonoscopy # Chronic hypertension- holding meds as above # Adenocarcinoma: Poorly differentiated - CT abd indicating possible GI tumor around duodenum, sigmoid-chemo will depend if primarily from upper GI vs. colon - colonoscopy is planned for 10/13 # Atelectasis: Present below effusions on CXR, cont IS # Diet- clear liquids to NPO for colonoscopy # PPx. High risk, place SCDs # Code. Full # Dispo- > 2MN as requiring further diagnostics and decisions related to chest tube prior to dc I have discussed the case with RN - will focus on hypotension this am - holding meds and bolusing fluids Subjective: exhausted and hungry Objective: Vital Signs Temp Pulse Resp BP Pulse Ox 36.8 C 113 H 20 97/74 L 92 10/12/16 11:50 10/12/16 12:15 10/12/16 11:50 10/12/16 12:15 10/12/16 11:50 Microbiology 10/05/16 09:13 Gram Stain - Final Pleural Fluid - Aspirate Laboratory Results 10/12/16 06:20 10/12/16 06:20 10/11/16 10/12/16 10/13/16 05:59 05:59 05:59 Intake Total 1390 1480 300 Output Total 160 1311 Balance 1230 169 300 PT 18.0 SEC (12.0-15.0) H D 10/11/16 06:20 INR 1.49 (0.83-1.16) H 10/11/16 06:20 - Physical Exam Constitutional: appears nourished Eyes: anicteric sclera Ears, Nose, Mouth, Throat: moist mucous membranes Cardiovascular: regular rate and rhythym, tachycardia Respiratory: reduced air movement, No expiratory wheeze Gastrointestinal: normoactive bowel sounds Genitourinary: no bladder fullness Skin: warm, normal color Musculoskeletal: No asymmetric calves Neurologic: AAOx3 Psychiatric: interacting appropriately, depressed, flat affect Lymph, Heme, Immunologic: no cervical LAD ICD10 Worksheet Patient Problems: Problems Problem Status Onset Atrial flutter Acute Pleural effusion, right Acute Hypoxemia Acute Recurrent right pleural effusion Acute
--- NOTE | 2016-10-12 13:42 | SOAPPROG ---
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 Adeno - searching for primary upper GI done essentially negative prepping for colonoscopy today Likely some sort of GI malignancy based on IHC Abnormalities on CT scans noted Further investigation for primary will depend on colonoscopy findings 2. Loculated pleural effusions s/p second VATS on 10/11/16 repeat biopsies pending CTs to suction and starting to drain serous fluid SOB improved 3. Acute on chronic resp fx - CTs n place On O2 via NC 4. Hypotension - anesthesia vs anemia BP meds on hold monitor 5. Mild rigors - assume from anesthesia Trial of benadryl - verbal given to RN can also try demerol 10/12/16 13:46 Subjective: No acute events Pt reports feeling very cold mild shaking Denies new pain Clears only for prep Objective: Vital Signs Temp Pulse Resp BP Pulse Ox 36.8 C 106 H 20 121/81 H 92 10/12/16 11:50 10/12/16 12:30 10/12/16 11:50 10/12/16 13:00 10/12/16 11:50 Microbiology 10/05/16 09:13 Gram Stain - Final Pleural Fluid - Aspirate Laboratory Results 10/12/16 06:20 10/12/16 06:20 10/11/16 10/12/16 10/13/16 05:59 05:59 05:59 Intake Total 1390 1480 300 Output Total 160 1311 Balance 1230 169 300 PT 18.0 SEC (12.0-15.0) H D 10/11/16 06:20 INR 1.49 (0.83-1.16) H 10/11/16 06:20 Gen - incomfotable but NAD HEENT - anicteric CV - RRR Chest - coarse BS w occassional rhonchi bilaterally Abd - soft Ext - no sig edema ICD10 Worksheet Patient Problems: Problems Problem Status Onset Atrial flutter Acute Pleural effusion, right Acute Hypoxemia Acute Recurrent right pleural effusion Acute
[2016-10-12] MEDS ORDERED: NS 1,000 ML IV SCH (15:15)
[2016-10-12] MEDS: ATORVASTATIN CALCIUM 20 MG TAB PO SCH (21:19)
[2016-10-12] MEDS: LATANOPROST 0.005% 2.5 ML OPHT DROPS EACHEYE SCH (21:19)
[2016-10-13 05:41] LABS: % IMMATURE GRANULYOCYTES 0.5 % (0.0-1.1); ABSOLUTE IMMATURE GRANULOCYTES 0.05 10^3/uL (0.00-0.10); ADD DIFF? NO; ADD MORPH? NO; ADD SCAN? NO; ATYPICAL LYMPHOCYTE FLAG 30 (0-99); FRAGMENT RBC FLAG 0 (0-99); HEMATOCRIT 29.1 % (40.0-51.0); HEMOGLOBIN 9.6 g/dL (13.7-17.5); LEFT SHIFT FLG 0 (0-99); LIPEMIA HEMOLYSIS FLAG 80 (0-99); MEAN CELL HEMOGLOBIN 28.4 pg (27.9-34.1); MEAN CELL VOLUME 86.1 fL (81.5-99.8); MEAN PLATELET VOLUME 10.2 fL (8.7-11.7); PLATELET CLUMPS FLAG 0 (0-99); PLATELET COUNT 153 10^3/uL (150-400); RED BLOOD CELL COUNT 3.38 10^6/uL (4.40-6.38); RED CELL DISTRIBUTION WIDTH 13.1 % (11.5-15.2)
[2016-10-13] MEDS: OMEGA-3 FATTY ACIDS 1,000 MG CAP PO SCH (08:52)
[2016-10-13] MEDS: PRESERVISION AREDS2 FORMULA EYE VIT 1 EACH PO SCH ×2 (08:52→21:39)
[2016-10-13] MEDS: DIGOXIN 125 MCG TAB PO SCH (08:52)
[2016-10-13] MEDS: FOLIC ACID 1 MG TAB PO SCH (08:53)
[2016-10-13] MEDS ORDERED: MIDAZOLAM 2 MG/2 ML VIAL ONE (09:50)
[2016-10-13] MEDS ORDERED: fentaNYL 100 MCG/2 ML INJ ONE (09:51)
[2016-10-13] MEDS ORDERED: FLUMAZENIL 0.5 MG/5 ML MDV IVP ONE (09:57)
[2016-10-13] MEDS ORDERED: NALOXONE HCL 0.4 MG/ML INJ ONE (09:58)
--- NOTE | 2016-10-13 11:20 | GPN ---
[f rep st] PROCEDURE NOTE DATE OF PROCEDURE: 10/13/2016 PROCEDURE: Colonoscopy. INDICATIONS AND PRE-PROCEDURE DIAGNOSIS: Malignant pleural effusion, adenocarcinoma. Normal EGD yesterday. CT with sigmoid finding. Negative flexible sigmoidoscopy yesterday but unprepped, with poor visualization. Now, formal colonoscopy, after undergoing complete colon prep. POSTPROCEDURE DIAGNOSIS: No sigmoid abnormality found. No colon cancer found. PREMEDICATION: Fentanyl 125 mcg IV, Versed 5 mg IV. COMPLICATIONS: None. FINDINGS: After informed consent was obtained, the patient was placed in the left lateral decubitus position. Video adult colonoscope was placed in the rectum and advanced to the terminal ilium. Upon slow withdrawal, barr diverticulosis was seen. There was a 3 mm sessile polyp in the sigmoid colon, removed with cold biopsy. Otherwise, no sigmoid cancer was seen. No colon cancer seen. IMPRESSION: No colon cancer found. I suspect the CT scan findings involving the sigmoid colon were a false positive only. 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 On the above CT, he did have a mildly dilated common bile duct, but with no pancreatic mass, normal ampulla, normal liver tests and a normal CA 19-9; suspect this is just a variant of normal only. PLAN: 1. We will let him eat. 2. Buff cap IV. 3. Otherwise, further management as per Surgery, Hospital Service and Oncology. 4. I will sign off. I will follow up on his small colon polyp pathology, but suspect will be benign only. Otherwise, please call if we may be of further help in the future. /[id number]/MODL MTDD
--- NOTE | 2016-10-13 13:01 | SOAPPROG ---
SOAP Progress Note Assessment/Plan: Assessment: s/p repeat VATS and evac hematoma/decortication/pleural biopsy. Cont CT's and follow OP. PET per oncology. D/w patient and , questions answered. Plan: 10/09/16 19:35 10/10/16 12:54 10/12/16 11:11 10/13/16 13:00 Subjective: Patient without complaints, minimal discomfort. Denies SOB Objective: Vital Signs Temp Pulse Resp BP Pulse Ox 36.8 C 103 H 21 H 91/64 L 90 L 10/13/16 11:58 10/13/16 11:58 10/13/16 11:58 10/13/16 11:58 10/13/16 11:58 Laboratory Results 10/13/16 05:30 10/12/16 06:20 10/12/16 10/13/16 10/14/16 05:59 05:59 05:59 Intake Total 1480 2350 300 Output Total 1311 1180 Balance 169 1170 300 PT 18.0 SEC (12.0-15.0) H D 10/11/16 06:20 INR 1.49 (0.83-1.16) H 10/11/16 06:20 Alert, NAD Irreg CT's with thin serosang fluid No leak noted. ICD10 Worksheet Patient Problems: Problems Problem Status Onset Atrial flutter Acute Pleural effusion, right Acute Hypoxemia Acute Recurrent right pleural effusion Acute
--- NOTE | 2016-10-13 13:13 | PDINTPN ---
[employer] Progress Note Assessment/Plan: Assessment/plan: 76 M with recurrent pleural effusion s/p multiple taps and finally VATS decortication and pleural biopsy. Initially thought to be parapneumonic effusion , but path consistent with adenocarcinoma. * Adenocarcinoma of unknown primary- discussed with patient and oncology today. Waiting for dc to get PET and eventual chemo * Pleural effusion- s/p VATS x 2. His output today is about 150 ml but he remains on suction. Consider clamping and watching for re-accumulation via non- contrast chest CT. In theory he should not require a pleur-x catheter after VATS pleurodesis and this would be a potential focus of infection, particularly as his immune system becomes compromised with chemo. * * 10/13/16 13:10 Objective: Vital Signs Temp Pulse Resp BP Pulse Ox 36.8 C 103 H 21 H 91/64 L 90 L 10/13/16 11:58 10/13/16 11:58 10/13/16 11:58 10/13/16 11:58 10/13/16 11:58 Laboratory Results 10/13/16 05:30 10/12/16 06:20 10/12/16 10/13/16 10/14/16 05:59 05:59 05:59 Intake Total 1480 2350 300 Output Total 1311 1180 Balance 169 1170 300 PT 18.0 SEC (12.0-15.0) H D 10/11/16 06:20 INR 1.49 (0.83-1.16) H 10/11/16 06:20 Physical Exam - Physical Exam General Appearance: alert, no apparent distress EENT: PERRL/EOMI Neck: supple Respiratory: lungs clear, normal breath sounds Cardiac/Chest: regular rate, rhythm Abdomen: non-tender, soft, No distended Skin: normal color, warm/dry Lymphatic: no adenopathy Extremities: No pedal edema Neuro/Psych: alert, normal mood/affect, oriented x 3 ICD10 Worksheet Patient Problems: Problems Problem Status Onset Atrial flutter Acute Pleural effusion, right Acute Hypoxemia Acute Recurrent right pleural effusion Acute
--- NOTE | 2016-10-13 13:25 | SOAPPROG ---
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 Mucinous Adeno - searching for primary upper GI done essentially negative; colonoscopy reviewed today and also unrevealing (biopsies pending) ? GI malignancy based on IHC Pt still requiring inpt status due to CT output Consider PET while inpt and discuss sending [facility] genomic profile tomorrow pathology For now, considered to be carcinoma of unknown primary - likely start a chemo that has shown efficacy in GI malignancy Sooner we are able to start chemo, more likely we will be able to controlled re- accumulation of pleural fluid 2. Loculated pleural effusions s/p second VATS on 10/11/[address] fluid has improved, appreciate pulmonology 3. Acute on chronic resp fx - CTs n place On O2 via NC 4. Hypotension - anesthesia vs anemia BP meds on hold monitor 5. Mild rigors - improved 10/13/16 13:15 Subjective: Colonoscopy done this am - unrevealing Pt is still sleepy from anesthesia Objective: Vital Signs Temp Pulse Resp BP Pulse Ox 36.8 C 103 H 21 H 91/64 L 90 L 10/13/16 11:58 10/13/16 11:58 10/13/16 11:58 10/13/16 11:58 10/13/16 11:58 Laboratory Results 10/13/16 05:30 10/12/16 06:20 10/12/16 10/13/16 10/14/16 05:59 05:59 05:59 Intake Total 1480 2350 300 Output Total 1311 1180 Balance 169 1170 300 PT 18.0 SEC (12.0-15.0) H D 10/11/16 06:20 INR 1.49 (0.83-1.16) H 10/11/16 06:20 Gen - fatigued appearing CV - tachy Resp - moving air well; CT in place draining bloody/serous fluid Abd - soft, BS+ Ext - no sig edema ICD10 Worksheet Patient Problems: Problems Problem Status Onset Atrial flutter Acute Pleural effusion, right Acute Hypoxemia Acute Recurrent right pleural effusion Acute
[2016-10-13] MEDS ORDERED: NS 1,000 ML IV ONE (13:28)
--- NOTE | 2016-10-13 13:28 | HOSPPROG ---
Hospitalist Progress Note Assessment/Plan: # Malignant pleural effusion with consolidation- presumed 2/2 adenocarcinoma, completed Levaquin tx for CAP, s/p 2 thoras (2.5L and 2.9L, exudative) Effusion reaccumulated - 1st VATS did not relieve all of the loculations s/ p VATS # 2 on 10/11 - ongoing drainage via CT CT chest on admit- numerous loculations not drained by CT - CXR post VATS#2 (personally reviewed and interpreted) shows 2 CT and decreased effusion with persistent loculations - surgery and pulmonary managing - colonoscopy today to eval for possible GI source of adenocarcinoma # acute hypotension - suspect 2/2 anesthesia with VATS and EGD and colonoscopy today - hgb 13-> 9 this am - fluid bolus now - holding diltiazem, lasix and norvasc - recheck hgb daily # Acute on chronic hypoxemic respiratory failure 2/2 malignant effusions - oxygen saturations 91% on 3L - CT in place # Atrial flutter with RVR - TELE (personally reviewed and interpreted) Aflutter in 100's currently - Chads-vasc 3 - Cont Digoxin - holding higher dose Diltazem 300mg daily 2/2 hypotension - restart Coumadin tonight # Chronic hypertension- holding meds as above # Adenocarcinoma: Poorly differentiated - CT abd indicating possible GI tumor around duodenum, sigmoid-chemo will depend if primarily from upper GI vs. colon - colonoscopy today then coordination with oncology # Atelectasis: Present below effusions on CXR, cont IS # Diet- restart diet after colonoscopy # PPx. High risk, place SCDs # Code. Full # Dispo- > 2MN as requiring further diagnostics and decisions related to chest tube prior to dc I have discussed the case with RN - blood pressures remain soft today - will fluid bolus after colonoscopy and follow with regular diet. Subjective: anxious for answers Objective: Vital Signs Temp Pulse Resp BP Pulse Ox 36.8 C 103 H 21 H 91/64 L 90 L 10/13/16 11:58 10/13/16 11:58 10/13/16 11:58 10/13/16 11:58 10/13/16 11:58 Laboratory Results 10/13/16 05:30 10/12/16 06:20 10/12/16 10/13/16 10/14/16 05:59 05:59 05:59 Intake Total 1480 2350 300 Output Total 1311 1180 Balance 169 1170 300 PT 18.0 SEC (12.0-15.0) H D 10/11/16 06:20 INR 1.49 (0.83-1.16) H 10/11/16 06:20 - Physical Exam Constitutional: chronically ill appearing Eyes: anicteric sclera Ears, Nose, Mouth, Throat: moist mucous membranes Cardiovascular: regular rate and rhythym, tachycardia Respiratory: no respiratory distress, reduced air movement, inspiratory crackles Gastrointestinal: normoactive bowel sounds Genitourinary: no bladder fullness Skin: warm, normal color Musculoskeletal: No asymmetric calves Neurologic: AAOx3 Psychiatric: flat affect Lymph, Heme, Immunologic: no cervical LAD ICD10 Worksheet Patient Problems: Problems Problem Status Onset Atrial flutter Acute Pleural effusion, right Acute Hypoxemia Acute Recurrent right pleural effusion Acute
[2016-10-13] MEDS: LATANOPROST 0.005% 2.5 ML OPHT DROPS EACHEYE SCH (21:39)
[2016-10-13] MEDS: ATORVASTATIN CALCIUM 20 MG TAB PO SCH (21:39)
[2016-10-14 06:46] LABS: % IMMATURE GRANULYOCYTES 0.8 % (0.0-1.1); ABSOLUTE IMMATURE GRANULOCYTES 0.07 10^3/uL (0.00-0.10); ADD DIFF? NO; ADD MORPH? NO; ADD SCAN? NO; ATYPICAL LYMPHOCYTE FLAG 70 (0-99); FRAGMENT RBC FLAG 0 (0-99); HEMATOCRIT 30.2 % (40.0-51.0); HEMOGLOBIN 9.9 g/dL (13.7-17.5); LEFT SHIFT FLG 0 (0-99); LIPEMIA HEMOLYSIS FLAG 80 (0-99); MEAN CELL HEMOGLOBIN 28.3 pg (27.9-34.1); MEAN CELL HEMOGLOBIN CONCENTR. 32.8 g/dL (32.4-36.7); MEAN CELL VOLUME 86.3 fL (81.5-99.8); MEAN PLATELET VOLUME 10.7 fL (8.7-11.7); PLATELET CLUMPS FLAG 10 (0-99); PLATELET COUNT 190 10^3/uL (150-400); RED CELL DISTRIBUTION WIDTH 13.2 % (11.5-15.2)
[2016-10-14 07:09] LABS: ANION GAP 3 mEq/L (8-16); CALCIUM 7.6 mg/dL (8.5-10.4); CARBON DIOXIDE 30 mEq/l (22-31); CHLORIDE 101 mEq/L (97-110); CREATININE 0.6 mg/dL (0.7-1.3); GLOMERULAR FILTRATION RATE > 60; GLUCOSE 98 mg/dL (70-100); POTASSIUM 3.6 mEq/L (3.5-5.2); SODIUM 134 mEq/L (134-144)
[2016-10-14] MEDS: FOLIC ACID 1 MG TAB PO SCH (08:18)
[2016-10-14] MEDS: PRESERVISION AREDS2 FORMULA EYE VIT 1 EACH PO SCH ×2 (08:18→20:10)
[2016-10-14] MEDS: OMEGA-3 FATTY ACIDS 1,000 MG CAP PO SCH (08:18)
[2016-10-14] MEDS: DIGOXIN 125 MCG TAB PO SCH (10:42)
--- NOTE | 2016-10-14 11:29 | SOAPPROG ---
SOAP Progress Note Assessment/Plan: Assessment: Improving. CT's to water seal. Poss PET scan. Plan: 10/09/16 19:35 10/10/16 12:54 10/12/16 11:11 10/13/16 13:00 10/14/16 11:28 Subjective: Patient without complaints, minimal pain, no SOB. Objective: Vital Signs Temp Pulse Resp BP Pulse Ox 36.6 C 106 H 17 122/89 H 92 10/14/16 07:32 10/14/16 10:42 10/14/16 07:32 10/14/16 07:32 10/14/16 07:32 Laboratory Results 10/14/16 06:30 10/14/16 06:30 10/13/16 10/14/16 10/15/16 05:59 05:59 05:59 Intake Total 2350 3072 Output Total 1180 1325 Balance 1170 1747 PT 18.0 SEC (12.0-15.0) H D 10/11/16 06:20 INR 1.49 (0.83-1.16) H 10/11/16 06:20 Alert, NAD CT1 with minimal leak CT's serosang Tidal well ICD10 Worksheet Patient Problems: Problems Problem Status Onset Atrial flutter Acute Pleural effusion, right Acute Hypoxemia Acute Recurrent right pleural effusion Acute
--- NOTE | 2016-10-14 11:37 | HOSPPROG ---
Hospitalist Progress Note Assessment/Plan: # Malignant pleural effusion with consolidation- presumed 2/2 adenocarcinoma, completed Levaquin tx for CAP, s/p 2 thoras (2.5L and 2.9L, exudative) Effusion reaccumulated - 1st VATS did not relieve all of the loculations s/ p VATS # 2 on 10/11 - ongoing drainage via CT CT chest on admit- numerous loculations not drained by CT - CXR 10/14 (personally reviewed and interpreted) dense right basilar consolidation remain - CT x2 in place. - surgery and pulmonary managing - awaiting oncologic plan for adenocarcinoma # acute hypotension - suspect 2/2 anesthesia with VATS and EGD and colonoscopy today - hgb 13-> 9 - resolved overnight - encourage PO - holding CD diltiazem, lasix and norvasc - restarting short acting diltiazem today and monitoring # Acute on chronic hypoxemic respiratory failure 2/2 malignant effusions - oxygen saturations 93% on 3L - CT in place # Atrial flutter with RVR - TELE (personally reviewed and interpreted) Aflutter remians in 100's - Cont Digoxin - holding higher dose Diltazem 300mg daily CD - start short acting 30mg diltiazem today - restart Coumadin today # Chronic hypertension- holding meds as above- suspect we can resume one at a time in the next 24 hours # Adenocarcinoma: Poorly differentiated - CT abd indicating possible GI tumor around duodenum, sigmoid-chemo will depend if primarily from upper GI vs. colon colonoscopy path pending - coordinating with oncology for possible PET scan - chemotherapy plan in process as well # Atelectasis: Present below effusions on CXR, cont IS # Diet- regular # PPx. High risk, place SCDs - restarting warfarin # Code. Full # Dispo- > 2MN as requiring further diagnostics and decisions related to chest tube prior to dc I have discussed the case with Oncology - will work on coordination of PET scan today Subjective: taking more PO Objective: Vital Signs Temp Pulse Resp BP Pulse Ox 36.6 C 106 H 17 122/89 H 92 10/14/16 07:32 10/14/16 10:42 10/14/16 07:32 10/14/16 07:32 10/14/16 07:32 Laboratory Results 10/14/16 06:30 10/14/16 06:30 10/13/16 10/14/16 10/15/16 05:59 05:59 05:59 Intake Total 2350 3072 Output Total 1180 1325 Balance 1170 1747 PT 18.0 SEC (12.0-15.0) H D 10/11/16 06:20 INR 1.49 (0.83-1.16) H 10/11/16 06:20 - Physical Exam Constitutional: chronically ill appearing Eyes: anicteric sclera Ears, Nose, Mouth, Throat: moist mucous membranes Cardiovascular: regular rate and rhythym, tachycardia Respiratory: no respiratory distress, reduced air movement Gastrointestinal: normoactive bowel sounds, soft, non-tender abdomen Genitourinary: no bladder fullness Skin: warm, normal color Musculoskeletal: No asymmetric calves Neurologic: AAOx3 Psychiatric: interacting appropriately, not anxious Lymph, Heme, Immunologic: no cervical LAD ICD10 Worksheet Patient Problems: Problems Problem Status Onset Atrial flutter Acute Pleural effusion, right Acute Hypoxemia Acute Recurrent right pleural effusion Acute
[2016-10-14] MEDS: DILTIAZEM 30 MG TAB PO SCH ×2 (12:37→19:32)
[2016-10-14] MEDS ORDERED: WARFARIN SODIUM 5 MG TAB PO ONE (16:00)
--- NOTE | 2016-10-14 19:38 | SOAPPROG ---
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 Mucinous Adeno - searching for primary upper GI done essentially negative; colonoscopy reviewed today and also unrevealing (biopsies still pending as of the afternoon of 10/14/2016). Pt still requiring inpt status due to CT output. He still has [address] Consider PET while inpatient but this may be logistically difficult and could also have an increased risk of false positives with recent procedures. Ideally the PET/CT would be done a couple of weeks after his most recent surgery. If it appears that we will be forced to start chemo in the hospital, we will arrange for it as an inpatient, however, I would like to give him another day or [address] drainage slows down. 2. Loculated pleural effusions s/p second VATS on 10/11/16 repeat biopsies pending He is much more comfortable with the current CT arrangement as far as pain is concerned. 3. Acute on chronic resp fx - CTs n place On O2 via NC 4. Hypotension - anesthesia vs anemia BP meds on hold monitor Plan: Monitor CT fluid output over the next 24-48 hours. If no decrease, arrange for inpatient PET/CT followed by chemo (Abraxane/gem if PET looks like a pancreatic primary or FOLFOX if not) Will follow with you. Subjective: Comfortable. Understands current situation. Objective: Vital Signs Temp Pulse Resp BP Pulse Ox 36.7 C 99 16 134/75 H 94 10/14/16 15:19 10/14/16 15:19 10/14/16 15:19 10/14/16 15:19 10/14/16 15:19 Microbiology 10/05/16 09:13 Gram Stain - Final Pleural Fluid - Aspirate Anaerobic Culture - Final Laboratory Results 10/14/16 06:30 10/14/16 06:30 10/12/16 10/13/16 10/14/16 23:59 23:59 23:59 Intake Total 1240 4372 940 Output Total 0132 015 2354 Balance -10 1542 -225 PT 18.0 SEC (12.0-15.0) H D 10/11/16 06:20 INR 1.49 (0.83-1.16) H 04/21/17 06:20 Physical Exam - Physical Exam General Appearance: no apparent distress, other (sitting in a chair) ICD10 Worksheet Patient Problems: Problems Problem Status Onset Atrial flutter Acute Pleural effusion, right Acute Hypoxemia Acute Recurrent right pleural effusion Acute
[2016-10-14] MEDS: LATANOPROST 0.005% 2.5 ML OPHT DROPS EACHEYE SCH (20:10)
[2016-10-14] MEDS: ATORVASTATIN CALCIUM 20 MG TAB PO SCH (20:10)
[2016-10-15] MEDS: DILTIAZEM 30 MG TAB PO SCH ×5 (00:09→23:34)
[2016-10-15 05:40] LABS: HEMATOCRIT 30.5 % (40.0-51.0); HEMOGLOBIN 10.2 g/dL (13.7-17.5); MEAN CELL HEMOGLOBIN 29.3 pg (27.9-34.1); MEAN CELL HEMOGLOBIN CONCENTR. 33.4 g/dL (32.4-36.7); MEAN CELL VOLUME 87.6 fL (81.5-99.8); RED BLOOD CELL COUNT 3.48 10^6/uL (4.40-6.38); RED CELL DISTRIBUTION WIDTH 13.1 % (11.5-15.2)
[2016-10-15 05:46] LABS: INR 1.25 (0.83-1.16); PROTIME(PATIENT) 15.7 SEC (12.0-15.0)
[2016-10-15] MEDS: OMEGA-3 FATTY ACIDS 1,000 MG CAP PO SCH (08:31)
[2016-10-15] MEDS: FOLIC ACID 1 MG TAB PO SCH (08:31)
[2016-10-15] MEDS: PRESERVISION AREDS2 FORMULA EYE VIT 1 EACH PO SCH ×2 (08:31→20:25)
--- NOTE | 2016-10-15 09:17 | SOAPPROG ---
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 Mucinous Adeno - searching for primary upper GI done essentially negative; colonoscopy reviewed today and also unrevealing (biopsies still pending as of this AM 10/15/16) Pt still requiring inpt status due to CT output. He still has [address] I'm going to try to arrange for at PET/CT tomorrow 2. Loculated pleural effusions s/p second VATS on 10/11/16 repeat biopsies pending He is much more comfortable with the current CT arrangement as far as pain is concerned. 3. Acute on chronic resp fx - CTs n place On O2 via NC 4. Hypotension - anesthesia vs anemia BP meds on hold monitor Plan: One chest tube is improving in drainage. Check biopsies Will try to arrange for a PET/CT tomorrow Discussed with the patient and his . Subjective: No new complaints Objective: Vital Signs Temp Pulse Resp BP Pulse Ox 36.7 C 90 18 130/80 H 94 10/15/16 08:00 10/15/16 08:00 10/15/16 08:00 10/15/16 08:00 10/15/16 08:00 Microbiology 10/05/16 09:13 Gram Stain - Final Pleural Fluid - Aspirate Anaerobic Culture - Final Laboratory Results 10/15/16 05:30 10/14/16 06:30 10/13/16 10/14/16 10/15/16 23:59 23:59 23:59 Intake Total 4372 940 100 Output Total 560 1465 810 Balance 6193 -620 -080 PT 15.7 SEC (12.0-15.0) H 10/15/16 05:30 INR 1.25 (0.83-1.16) H 10/15/16 05:30 Physical Exam - Physical Exam General Appearance: mild distress Respiratory: rales (R lung. [address] on R.) ICD10 Worksheet Patient Problems: Problems Problem Status Onset Atrial flutter Acute Pleural effusion, right Acute Hypoxemia Acute Recurrent right pleural effusion Acute
[2016-10-15] MEDS: DIGOXIN 125 MCG TAB PO SCH (10:17)
--- NOTE | 2016-10-15 11:00 | HOSPPROG ---
Hospitalist Progress Note Assessment/Plan: # Malignant pleural effusion with consolidation- presumed 2/2 adenocarcinoma, completed Levaquin tx for CAP, s/p 2 thoras (2.5L and 2.9L, exudative) Effusion reaccumulated - 1st VATS did not relieve all of the loculations s/ p VATS # 2 on 10/11 - ongoing drainage via CT CT chest on admit- numerous loculations not drained by CT - CXR 10/14 (personally reviewed and interpreted) dense right basilar consolidation remain - CT x2 in place. - surgery and pulmonary managing - awaiting oncologic plan for adenocarcinoma # acute hypotension - suspect 2/2 anesthesia - resolved- hgb 10.2 this am - encourage PO - restarting CD diltiazem and norvasc # Acute on chronic hypoxemic respiratory failure 2/2 malignant effusions - oxygen saturations 94% on 3.5L - CT in place # Atrial flutter with RVR - TELE (personally reviewed and interpreted) Aflutter remains in 100's - Cont Digoxin - holding higher dose Diltazem 300mg daily CD - start short acting 30mg diltiazem today - restart Coumadin today # Chronic hypertension- restarting meds as above # Adenocarcinoma: Poorly differentiated - CT abd indicating possible GI tumor around duodenum, sigmoid-chemo will depend if primarily from upper GI vs. colon colonoscopy path pending - plan for PET/CT scan tomorrow - chemotherapy plan in process as well # Atelectasis: Present below effusions on CXR, cont IS # Diet- regular # PPx. High risk, place SCDs - restarting warfarin # Code. Full # Dispo- > 2MN as requiring further diagnostics and decisions related to chest tube prior to dc I have discussed the case with Oncology - will plan of PET scan for tomorrow Subjective: tolerated large breakfast Objective: Vital Signs Temp Pulse Resp BP Pulse Ox 36.7 C 101 H 18 130/80 H 94 10/15/16 08:00 10/15/16 10:17 10/15/16 08:00 10/15/16 08:00 10/15/16 08:00 Microbiology 10/05/16 09:13 Gram Stain - Final Pleural Fluid - Aspirate Anaerobic Culture - Final Laboratory Results 10/15/16 05:30 10/14/16 06:30 10/14/16 10/15/16 10/16/16 05:59 05:59 05:59 Intake Total 3072 790 Output Total 1325 1330 Balance 1747 -540 PT 15.7 SEC (12.0-15.0) H 10/15/16 05:30 INR 1.25 (0.83-1.16) H 10/15/16 05:30 - Physical Exam Constitutional: appears nourished, chronically ill appearing Eyes: anicteric sclera Ears, Nose, Mouth, Throat: moist mucous membranes Cardiovascular: regular rate and rhythym Respiratory: no respiratory distress, reduced air movement, inspiratory crackles Gastrointestinal: normoactive bowel sounds, soft, non-tender abdomen Genitourinary: no bladder fullness Skin: warm, normal color Musculoskeletal: No asymmetric calves Neurologic: AAOx3 Psychiatric: interacting appropriately, not anxious Lymph, Heme, Immunologic: no cervical LAD ICD10 Worksheet Patient Problems: Problems Problem Status Onset Atrial flutter Acute Pleural effusion, right Acute Hypoxemia Acute Recurrent right pleural effusion Acute
--- NOTE | 2016-10-15 13:53 | SOAPPROG ---
[facility] Progress Note Assessment/Plan: Assessment: Cont CT's until PET scan complete, follow OP. Plan: 10/09/16 19:35 10/10/16 12:54 10/12/16 11:11 10/13/16 13:00 10/14/16 11:28 10/15/16 13:52 Subjective: Patient without complaints, minimal pain, denies SOB. Objective: Vital Signs Temp Pulse Resp BP Pulse Ox 36.8 C 101 H 16 143/77 H 95 10/15/16 12:00 10/15/16 12:17 10/15/16 12:00 10/15/16 12:17 10/15/16 12:00 Microbiology 10/05/16 09:13 Gram Stain - Final Pleural Fluid - Aspirate Anaerobic Culture - Final Laboratory Results 10/15/16 05:30 10/14/16 06:30 10/14/16 10/15/16 10/16/16 05:59 05:59 05:59 Intake Total 3072 790 Output Total 1325 1330 Balance 1747 -540 PT 15.7 SEC (12.0-15.0) H 10/15/16 05:30 INR 1.25 (0.83-1.16) H 10/15/16 05:30 Alert, NAD CT without leak, tidal well CT serosang ICD10 Worksheet Patient Problems: Problems Problem Status Onset Atrial flutter Acute Pleural effusion, right Acute Hypoxemia Acute Recurrent right pleural effusion Acute
[2016-10-15] MEDS ORDERED: WARFARIN SODIUM 5 MG TAB PO ONE (16:00)
[2016-10-15] MEDS: oxyCODONE IR 5 MG TAB PO PRN (20:26)
[2016-10-15] MEDS: ATORVASTATIN CALCIUM 20 MG TAB PO SCH (20:26)
[2016-10-15] MEDS: amLODIPine BESYLATE 5 MG TAB PO SCH (20:26)
[2016-10-15] MEDS: LATANOPROST 0.005% 2.5 ML OPHT DROPS EACHEYE SCH (20:28)
[2016-10-16 05:34] LABS: INR 1.45 (0.83-1.16); PROTIME(PATIENT) 17.6 SEC (12.0-15.0)
[2016-10-16] MEDS: PRESERVISION AREDS2 FORMULA EYE VIT 1 EACH PO SCH ×2 (09:06→20:39)
[2016-10-16] MEDS: OMEGA-3 FATTY ACIDS 1,000 MG CAP PO SCH (09:06)
[2016-10-16] MEDS: FOLIC ACID 1 MG TAB PO SCH (09:06)
[2016-10-16] MEDS: DILTIAZEM CD 300 MG CAP PO SCH (09:06)
[2016-10-16] MEDS: DIGOXIN 125 MCG TAB PO SCH (09:07)
--- NOTE | 2016-10-16 09:49 | SOAPPROG ---
SOANNET[facility] Progress Note Assessment/Plan: Assessment: Cont CT's until PET scan complete, follow OP. Plan: 10/09/16 19:35 10/10/16 12:54 10/12/16 11:11 10/13/16 13:00 10/14/16 11:28 10/15/16 13:52 Subjective: No complaints, pain minimal, no SOB. Objective: Vital Signs Temp Pulse Resp BP Pulse Ox 36.9 C 105 H 18 139/94 H 91 L 10/16/16 07:37 10/16/16 07:37 10/16/16 07:37 10/16/16 07:37 10/16/16 07:37 Laboratory Results 10/15/16 05:30 10/14/16 06:30 10/15/16 10/16/16 10/17/16 05:59 05:59 05:59 Intake Total 790 600 Output Total 1330 1970 Balance -540 -1370 PT 17.6 SEC (12.0-15.0) H 10/16/16 05:20 INR 1.45 (0.83-1.16) H 10/16/16 05:20 Alert, NAD CT tidals, no leak OP serosang ICD10 Worksheet Patient Problems: Problems Problem Status Onset Atrial flutter Acute Pleural effusion, right Acute Hypoxemia Acute Recurrent right pleural effusion Acute
--- NOTE | 2016-10-16 11:28 | HOSPPROG ---
Hospitalist Progress Note Assessment/Plan: # Malignant pleural effusion with consolidation- presumed 2/2 adenocarcinoma, completed Levaquin tx for CAP, s/p 2 thora (2.5L and 2.9L, exudative) Effusion reaccumulated - 1st VATS did not relieve all of the loculations s/ p VATS # 2 on 10/11 - ongoing drainage via CT x2 CT chest on admit- numerous loculations not drained by CT - CXR 10/14 -dense right basilar consolidation remain - CT x2 in place. - surgery and pulmonary managing - awaiting oncologic plan for adenocarcinoma # acute hypotension - suspect 2/2 anesthesia - resolved- hgb 10.2 # Acute on chronic hypoxemic respiratory failure 2/2 malignant effusions - oxygen saturations 91% on 3L - CT in place - encourage IS # Atrial flutter with intermittent RVR - TELE (personally reviewed and interpreted) Aflutter remains in 90-100's INR 1.45 - Cont Digoxin -cont Diltazem 300mg daily CD - cont Coumadin # Chronic hypertension- have restarted all home meds as of 10/15/16 as hypotension resolved # Adenocarcinoma: Poorly differentiated - CT abd indicating possible GI tumor around duodenum however colonoscopy quite benign chemo will depend if primarily from upper GI vs. colon colonoscopy path pending - plan for PET/CT scan today - chemotherapy plan in process as well # Diet- regular # PPx. High risk, place SCDs - restarting warfarin # Code. Full # Dispo- > 2MN as requiring further diagnostics and decisions related to chemotherapy and chest tubes prior to dc I have discussed the case with surgery - plan for PET today Subjective: denies new pain Objective: Vital Signs Temp Pulse Resp BP Pulse Ox 36.9 C 105 H 18 139/94 H 91 L 10/16/16 07:37 10/16/16 07:37 10/16/16 07:37 10/16/16 07:37 10/16/16 07:37 Laboratory Results 10/15/16 05:30 10/14/16 06:30 10/15/16 10/16/16 10/17/16 05:59 05:59 05:59 Intake Total 790 600 Output Total 1330 1970 Balance -540 -1370 PT 17.6 SEC (12.0-15.0) H 10/16/16 05:20 INR 1.45 (0.83-1.16) H 10/16/16 05:20 - Physical Exam Constitutional: appears nourished Eyes: anicteric sclera Ears, Nose, Mouth, Throat: moist mucous membranes Cardiovascular: regular rate and rhythym Respiratory: no respiratory distress, reduced air movement Gastrointestinal: normoactive bowel sounds, soft, non-tender abdomen Genitourinary: no bladder fullness Skin: warm, normal color Musculoskeletal: No asymmetric calves Neurologic: AAOx3 Psychiatric: interacting appropriately, not anxious Lymph, Heme, Immunologic: no cervical LAD ICD10 Worksheet Patient Problems: Problems Problem Status Onset Atrial flutter Acute Pleural effusion, right Acute Hypoxemia Acute Recurrent right pleural effusion Acute
[2016-10-16] MEDS: WARFARIN SODIUM 5 MG TAB PO SCH (15:49)
--- NOTE | 2016-10-16 16:33 | SOAPPROG ---
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 Path still pending Pt still requiring inpt status due to CT output. He still has [address] PET/CT was done today and results are pending. 2. Loculated pleural effusions s/p second VATS on 10/11/16 repeat biopsies pending He is much more comfortable with the current CT arrangement as far as pain is concerned. 3. Acute on chronic resp fx - CTs n place On O2 via NC Plan: One chest tube is improving in drainage. Check biopsies when available Check PET/CT results when available. Discussed with the patient and his . Subjective: In good spirits today. No new complaints. Objective: Vital Signs Temp Pulse Resp BP Pulse Ox 36.9 C 81 18 117/70 92 10/16/16 16:00 10/16/16 16:00 10/16/16 16:00 10/16/16 16:00 10/16/16 16:00 Laboratory Results 10/15/16 05:30 10/14/16 06:30 10/14/16 10/15/16 10/16/16 23:59 23:59 23:59 Intake Total 940 350 350 Output Total 1465 1700 1080 Balance -525 -1350 -730 PT 17.6 SEC (12.0-15.0) H 10/16/16 05:20 INR 1.45 (0.83-1.16) H 10/16/16 05:20 Physical Exam - Physical Exam General Appearance: no apparent distress, other (sitting in chair. ) Neuro/Psych: normal mood/affect ICD10 Worksheet Patient Problems: Problems Problem Status Onset Atrial flutter Acute Pleural effusion, right Acute Hypoxemia Acute Recurrent right pleural effusion Acute
[2016-10-16] MEDS: amLODIPine BESYLATE 5 MG TAB PO SCH (20:39)
[2016-10-16] MEDS: ATORVASTATIN CALCIUM 20 MG TAB PO SCH (20:39)
[2016-10-16] MEDS: LATANOPROST 0.005% 2.5 ML OPHT DROPS EACHEYE SCH (20:40)
[2016-10-17] MEDS: PRESERVISION AREDS2 FORMULA EYE VIT 1 EACH PO SCH ×2 (07:24→19:56)
[2016-10-17] MEDS: OMEGA-3 FATTY ACIDS 1,000 MG CAP PO SCH (07:24)
[2016-10-17] MEDS: FOLIC ACID 1 MG TAB PO SCH (07:24)
[2016-10-17] MEDS: DILTIAZEM CD 300 MG CAP PO SCH (07:24)
[2016-10-17 07:32] LABS: INR 1.42 (0.83-1.16); PROTIME(PATIENT) 17.3 SEC (12.0-15.0)
[2016-10-17] MEDS: DIGOXIN 125 MCG TAB PO SCH (10:55)
--- NOTE | 2016-10-17 11:15 | SOAPPROG ---
SOAP Progress Note Assessment/Plan: Assessment: Await PET results, likely d/c CT 2. Plan: 10/09/16 19:35 10/10/16 12:54 10/12/16 11:11 10/13/16 13:00 10/14/16 11:28 10/15/16 13:52 10/17/16 11:14 Subjective: No complaints Objective: Vital Signs Temp Pulse Resp BP Pulse Ox 36.9 C 78 18 117/71 91 L 10/17/16 07:19 10/17/16 07:19 10/17/16 07:19 10/17/16 07:19 10/17/16 07:19 Laboratory Results 10/15/16 05:30 10/14/16 06:30 10/16/16 10/17/16 10/18/16 05:59 05:59 05:59 Intake Total 600 560 Output Total 1970 930 Balance -1370 -370 PT 17.3 SEC (12.0-15.0) H 10/17/16 06:15 INR 1.42 (0.83-1.16) H 10/17/16 06:15 Alert, NAD CT 1 tidals well, no leak CT 2 no tidal Serosang ICD10 Worksheet Patient Problems: Problems Problem Status Onset Atrial flutter Acute Pleural effusion, right Acute Hypoxemia Acute Recurrent right pleural effusion Acute
--- NOTE | 2016-10-17 14:00 | SOAPPROG ---
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 His stage is IV. We will need to initiate therapy as an adenocarcinoma of unknown primary with characteristics most consistent with a GI primary. Therefore we will initiate therapy tomorrow with empiric FOLOFOX Q2 weeks. First evaluation point will be after 4 cycles (8 weeks). I reviewed the major side effects with the patient and his including but not limited to peripheral neuropathy/mouth sores/ diarrhea/PPE/problems with blood counts. We reviewed the 3 palliative therapy endpoints (CR/Toxicity/progression) that would cause a termination or change in therapy. I spoke with our pharmacist, Jem, who will give them additional information. We will plan on starting Cycle 1 Day 1 on 10/18/2016. 2. Loculated pleural effusions - will probably get one chest tube out today Plan: Start FOLFOX on 40 min time spent in data aquisition/discussion with patient and staff/ coordination of care. Subjective: walking in [place]. no acute distress. Objective: Vital Signs Temp Pulse Resp BP Pulse Ox 36.7 C 85 20 122/69 H 95 10/17/16 12:30 10/17/16 12:30 10/17/16 12:30 10/17/16 12:30 10/17/16 12:30 Laboratory Results 10/15/16 05:30 10/14/16 06:30 10/15/16 10/16/16 10/17/16 23:59 23:59 23:59 Intake Total 350 810 100 Output Total 1700 1130 880 Balance -1350 -320 -780 PT 17.3 SEC (12.0-15.0) H 10/17/16 06:15 INR 1.42 (0.83-1.16) H 10/17/16 06:15 Physical Exam - Physical Exam General Appearance: alert, no apparent distress ICD10 Worksheet Patient Problems: Problems Problem Status Onset Atrial flutter Acute Pleural effusion, right Acute Hypoxemia Acute Recurrent right pleural effusion Acute
[2016-10-17] MEDS ORDERED: oxyCODONE IR 5 MG TAB PO PRN (15:49)
--- NOTE | 2016-10-17 15:59 | HOSPPROG ---
Hospitalist Progress Note Assessment/Plan: * Adenocarcinoma of unknown primary -start chemo in am * Malignant pleural effusion s/p VATS x 2 -chest tubes x 2 - hopefully decrease drainage with chemo -s/p levaquin for possible pneumonia * Acute on chronic respiratory failure - O2 * A flutter -rate controlled on digoxin + diltiazem -warfarin - INR low - consider bridge therapy Subjective: No complaints. Objective: Vital Signs Temp Pulse Resp BP Pulse Ox 36.7 C 85 20 122/69 H 95 10/17/16 12:30 10/17/16 12:30 10/17/16 12:30 10/17/16 12:30 10/17/16 12:30 Laboratory Results 10/15/16 05:30 10/14/16 06:30 10/16/16 10/17/16 10/18/16 05:59 05:59 05:59 Intake Total 600 560 Output Total 1970 930 Balance -1370 -370 PT 17.3 SEC (12.0-15.0) H 10/17/16 06:15 INR 1.42 (0.83-1.16) H 10/17/16 06:15 d/w Dr. Bolanos - PET without primary - needs transfer to onc for chemo in am tele reviewed - rate controlled a flutter Laboratory Tests 10/17/16 06:15 INR 1.42 H - Physical Exam Constitutional: no apparent distress, appears nourished, not in pain Cardiovascular: regular rate and rhythym, no murmur, rub, or gallop Respiratory: no respiratory distress, no rales or rhonchi, clear to auscultation Gastrointestinal: normoactive bowel sounds, soft, non-tender abdomen, no palpable masses Skin: no rashes or abrasions, no fluctuance, no induration Neurologic: AAOx3, sensation intact bilaterally Psychiatric: interacting appropriately, not anxious, not encephalopathic, thought process linear ICD10 Worksheet Patient Problems: Problems Problem Status Onset Atrial flutter Acute Pleural effusion, right Acute Hypoxemia Acute Recurrent right pleural effusion Acute
[2016-10-17] MEDS: WARFARIN SODIUM 5 MG TAB PO SCH (16:42)
[2016-10-17] MEDS: amLODIPine BESYLATE 5 MG TAB PO SCH (19:56)
[2016-10-17] MEDS: ATORVASTATIN CALCIUM 20 MG TAB PO SCH (19:57)
[2016-10-17] MEDS: LATANOPROST 0.005% 2.5 ML OPHT DROPS EACHEYE SCH (19:58)
[2016-10-18 06:04] LABS: % IMMATURE GRANULYOCYTES 0.7 % (0.0-1.1); ABSOLUTE IMMATURE GRANULOCYTES 0.07 10^3/uL (0.00-0.10); ADD DIFF? NO; ADD MORPH? NO; ADD SCAN? NO; ATYPICAL LYMPHOCYTE FLAG 40 (0-99); FRAGMENT RBC FLAG 0 (0-99); HEMATOCRIT 31.4 % (40.0-51.0); HEMOGLOBIN 10.5 g/dL (13.7-17.5); LEFT SHIFT FLG 10 (0-99); LIPEMIA HEMOLYSIS FLAG 80 (0-99); MEAN CELL HEMOGLOBIN 28.7 pg (27.9-34.1); MEAN CELL HEMOGLOBIN CONCENTR. 33.4 g/dL (32.4-36.7); MEAN CELL VOLUME 85.8 fL (81.5-99.8); MEAN PLATELET VOLUME 9.6 fL (8.7-11.7); PLATELET CLUMPS FLAG 0 (0-99); PLATELET COUNT 375 10^3/uL (150-400); RED BLOOD CELL COUNT 3.66 10^6/uL (4.40-6.38); RED CELL DISTRIBUTION WIDTH 13.4 % (11.5-15.2)
[2016-10-18 06:13] LABS: INR 1.69 (0.83-1.16); PROTIME(PATIENT) 19.9 SEC (12.0-15.0)
[2016-10-18 07:47] LABS: ANION GAP 5 mEq/L (8-16); CALCIUM 8.4 mg/dL (8.5-10.4); CARBON DIOXIDE 31 mEq/l (22-31); CHLORIDE 100 mEq/L (97-110); CREATININE 0.6 mg/dL (0.7-1.3); GLOMERULAR FILTRATION RATE > 60; GLUCOSE 96 mg/dL (70-100); POTASSIUM 4.4 mEq/L (3.5-5.2); SODIUM 136 mEq/L (134-144)
[2016-10-18] MEDS: DILTIAZEM CD 300 MG CAP PO SCH (07:55)
[2016-10-18] MEDS: FOLIC ACID 1 MG TAB PO SCH (07:55)
[2016-10-18] MEDS: PRESERVISION AREDS2 FORMULA EYE VIT 1 EACH PO SCH ×2 (07:55→20:15)
[2016-10-18] MEDS: OMEGA-3 FATTY ACIDS 1,000 MG CAP PO SCH (07:55)
[2016-10-18] MEDS: DIGOXIN 125 MCG TAB PO SCH (10:42)
--- NOTE | 2016-10-18 11:07 | SOAPPROG ---
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 His stage is IV. Chemotherapy will start today. We will use empiric FOLFOX 6 which is: Oxaliplatin 85mg/m2 Day 1 over 2 hours IV Leucovorin 400mg/m2 Day 1 over 2 hours IV Fluorouracil 400mg/m2 Day 1 IV bolus over 10 minutes followed by Fluorouracil 2400mg/m2 IV continuous infusion over 48 hours Repeat Q14 days Day 1 is October 18, 2016 Patient has no questions and is ready to proceed. He will need a port prior to discharge - Discussed with Dr. Badillo 2. Loculated pleural effusions - will probably get one chest tube out today Plan: Start FOLFOX 6 on 40 min time spent in data aquisition/discussion with patient and staff/ coordination of care. Subjective: No new questions. Ready to start chemo. Objective: Vital Signs Temp Pulse Resp BP Pulse Ox 36.4 C 96 16 120/69 94 10/18/16 09:06 10/18/16 10:42 10/18/16 09:06 10/18/16 09:06 10/18/16 09:06 Laboratory Results 10/18/16 05:45 10/18/16 05:45 10/16/16 10/17/16 10/18/16 23:59 23:59 23:59 Intake Total 810 340 Output Total 5290 015 6142 Balance -320 -540 -1080 PT 19.9 SEC (12.0-15.0) H 10/18/16 05:45 INR 1.69 (0.83-1.16) H 10/18/16 05:45 Physical Exam - Physical Exam General Appearance: alert, no apparent distress Respiratory: other (Rubs on Right) Cardiac/Chest: regular rate, rhythm Skin: pallor Neuro/Psych: normal mood/affect, oriented x 3 ICD10 Worksheet Patient Problems: Problems Problem Status Onset Atrial flutter Acute Pleural effusion, right Acute Hypoxemia Acute Recurrent right pleural effusion Acute
[2016-10-18] MEDS ORDERED: DEXAMETHASONE IV SCH (13:00)
[2016-10-18] MEDS ORDERED: ONDANSETRON HCL IV SCH (13:00)
[2016-10-18] MEDS ORDERED: NS IV SCH (13:00)
[2016-10-18] MEDS ORDERED: LEUCOVORIN CALCIUM IV SCH (13:30)
[2016-10-18] MEDS ORDERED: D5W IV SCH ×2 (13:30)
[2016-10-18] MEDS ORDERED: OXALIPLATIN IV SCH (13:30)
--- NOTE | 2016-10-18 14:43 | HOSPPROG ---
Hospitalist Progress Note Assessment/Plan: * Adenocarcinoma of unknown primary -initiating chemo * Malignant pleural effusion s/p VATS x 2 -chest tubes - hopefully decrease drainage with chemo -1 chest out, 1 remains -s/p levaquin for possible pneumonia * Acute on chronic respiratory failure - O2 * A flutter -rate controlled on digoxin + diltiazem -warfarin - follow INR Subjective: No complaints. Objective: Vital Signs Temp Pulse Resp BP Pulse Ox 36.6 C 79 16 114/68 95 10/18/16 13:47 10/18/16 13:47 10/18/16 13:47 10/18/16 13:47 10/18/16 13:47 Laboratory Results 10/18/16 05:45 10/18/16 05:45 10/17/16 10/18/16 10/19/16 05:59 05:59 05:59 Intake Total 560 240 Output Total 930 1080 Balance -370 -840 PT 19.9 SEC (12.0-15.0) H 10/18/16 05:45 INR 1.69 (0.83-1.16) H 10/18/16 05:45 - Physical Exam Constitutional: no apparent distress, appears nourished, not in pain Cardiovascular: regular rate and rhythym, no murmur, rub, or gallop Respiratory: no respiratory distress, no rales or rhonchi, clear to auscultation Gastrointestinal: normoactive bowel sounds, soft, non-tender abdomen, no palpable masses Skin: no rashes or abrasions, no fluctuance, no induration Neurologic: AAOx3, sensation intact bilaterally Psychiatric: interacting appropriately, not anxious, not encephalopathic, thought process linear ICD10 Worksheet Patient Problems: Problems Problem Status Onset Atrial flutter Acute Pleural effusion, right Acute Hypoxemia Acute Recurrent right pleural effusion Acute
--- NOTE | 2016-10-18 14:51 | SOAPPROG ---
SOAP Progress Note Assessment/Plan: Assessment: CT d/c'd. Plan for port, after discussion with oncology it seems unlikely that the patient will require a long-term pleural catheter. Plan: 10/09/16 19:35 10/10/16 12:54 10/12/16 11:11 10/13/16 13:00 10/14/16 11:28 10/15/16 13:52 10/17/16 11:14 10/18/16 14:49 Subjective: Patient without complaints, no SOB Objective: Vital Signs Temp Pulse Resp BP Pulse Ox 36.6 C 79 16 114/68 95 10/18/16 13:47 10/18/16 13:47 10/18/16 13:47 10/18/16 13:47 10/18/16 13:47 Laboratory Results 10/18/16 05:45 10/18/16 05:45 10/17/16 10/18/16 10/19/16 05:59 05:59 05:59 Intake Total 560 240 Output Total 930 1080 Balance -370 -840 PT 19.9 SEC (12.0-15.0) H 10/18/16 05:45 INR 1.69 (0.83-1.16) H 10/18/16 05:45 Alert, NAD CT 1 tidals well, no leak. CT no tidal or leak noted. serous/serosang. ICD10 Worksheet Patient Problems: Problems Problem Status Onset Atrial flutter Acute Pleural effusion, right Acute Hypoxemia Acute Recurrent right pleural effusion Acute
[2016-10-18] MEDS ORDERED: FLUOROURACIL IV SCH (15:30)
[2016-10-18] MEDS: FLUOROURACIL IV SCH (16:51)
[2016-10-18] MEDS: D5W IV SCH (16:51)
[2016-10-18] MEDS: WARFARIN SODIUM 5 MG TAB PO SCH (16:54)
[2016-10-18] MEDS: ATORVASTATIN CALCIUM 20 MG TAB PO SCH (20:15)
[2016-10-18] MEDS: amLODIPine BESYLATE 5 MG TAB PO SCH (20:15)
[2016-10-18] MEDS: LATANOPROST 0.005% 2.5 ML OPHT DROPS EACHEYE SCH (20:17)
[2016-10-19 04:43] LABS: INR 2.2 (0.83-1.16); PROTIME(PATIENT) 24.6 SEC (12.0-15.0)
[2016-10-19] MEDS: FOLIC ACID 1 MG TAB PO SCH (09:46)
[2016-10-19] MEDS: DIGOXIN 125 MCG TAB PO SCH (09:46)
[2016-10-19] MEDS: PRESERVISION AREDS2 FORMULA EYE VIT 1 EACH PO SCH ×2 (09:46→20:24)
[2016-10-19] MEDS: DILTIAZEM CD 300 MG CAP PO SCH (09:46)
[2016-10-19] MEDS: OMEGA-3 FATTY ACIDS 1,000 MG CAP PO SCH (09:46)
--- NOTE | 2016-10-19 11:20 | SOAPPROG ---
SOAP Progress Note Assessment/Plan: Assessment: Port planned for 10/20; if CT OP improves may be able to remove in AM as well. Plan: 10/09/16 19:35 10/10/16 12:54 10/12/16 11:11 10/13/16 13:00 10/14/16 11:28 10/15/16 13:52 10/17/16 11:14 10/18/16 14:49 10/19/16 11:19 Subjective: No complaints Objective: Vital Signs Temp Pulse Resp BP Pulse Ox 36.5 C 86 18 115/71 93 10/19/16 08:00 10/19/16 09:46 10/19/16 08:00 10/19/16 09:46 10/19/16 08:00 Laboratory Results 10/18/16 05:45 10/18/16 05:45 10/18/16 10/19/16 10/20/16 05:59 05:59 05:59 Intake Total 240 2199 Output Total 1080 2000 310 Balance -840 199 -310 PT 24.6 SEC (12.0-15.0) H 10/19/16 04:16 INR 2.20 (0.83-1.16) H 10/19/16 04:16 Alert, NAD CT tidals well, no leak CT serosang ICD10 Worksheet Patient Problems: Problems Problem Status Onset Atrial flutter Acute Pleural effusion, right Acute Hypoxemia Acute Recurrent right pleural effusion Acute
--- NOTE | 2016-10-19 12:10 | SOAPPROG ---
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 His stage is IV. Chemotherapy will continue today today. Day 1 is October 18, 2016 He will need a port prior to discharge - plan is for tomorrow 2. Loculated pleural effusions - may get second chest tube out tomorrow Plan: continue folfox, will consider Zometa as an outpt given bone mets Subjective: Feels ok` Objective: Vital Signs Temp Pulse Resp BP Pulse Ox 97.9 F 111 H 18 115/71 94 10/19/16 12:00 10/19/16 12:00 10/19/16 12:00 10/19/16 12:00 10/19/16 12:00 Laboratory Results 10/18/16 05:45 10/18/16 05:45 10/18/16 10/19/16 10/20/16 05:59 05:59 05:59 Intake Total 240 2199 Output Total 1080 1999 310 Balance -840 199 -310 PT 24.6 SEC (12.0-15.0) H 10/19/16 04:16 INR 2.20 (0.83-1.16) H 10/19/16 04:16 Physical Exam - Physical Exam General Appearance: alert, no apparent distress Respiratory: decreased breath sounds (r base) Abdomen: normal bowel sounds, non-tender ICD10 Worksheet Patient Problems: Problems Problem Status Onset Atrial flutter Acute Pleural effusion, right Acute Hypoxemia Acute Recurrent right pleural effusion Acute
[2016-10-19] MEDS ORDERED: LIDOCAINE 1% 30 ML SDV ONE (14:21)
[2016-10-19] MEDS ORDERED: SODIUM BICARBONATE 10 MEQ/10 ML SYR IVP ONE (14:22)
[2016-10-19] MEDS ORDERED: BUPIVACAINE 0.25% 30 ML SDV ONE (14:22)
[2016-10-19] MEDS ORDERED: HEPARIN 10,000 UNIT/10 ML MDV ONE (14:22)
--- NOTE | 2016-10-19 15:58 | HOSPPROG ---
Hospitalist Progress Note Assessment/Plan: * Adenocarcinoma of unknown primary - metastatic -initiating chemo * Malignant pleural effusion s/p VATS x 2 -chest tubes - hopefully decrease drainage with chemo -1 chest out, 1 remains -s/p levaquin for possible pneumonia * Acute on chronic respiratory failure - O2 * A flutter -rate controlled on digoxin + diltiazem -warfarin - follow INR Subjective: No new complaints. Objective: Vital Signs Temp Pulse Resp BP Pulse Ox 36.6 C 111 H 18 115/71 94 10/19/16 12:00 10/19/16 12:00 10/19/16 12:00 10/19/16 12:00 10/19/16 14:22 Laboratory Results 10/18/16 05:45 10/18/16 05:45 10/18/16 10/19/16 10/20/16 05:59 05:59 05:59 Intake Total 240 2199 Output Total 1080 2000 310 Balance -840 199 -310 PT 24.6 SEC (12.0-15.0) H 10/19/16 04:16 INR 2.20 (0.83-1.16) H 10/19/16 04:16 - Physical Exam Constitutional: no apparent distress, appears nourished, not in pain Cardiovascular: regular rate and rhythym, no murmur, rub, or gallop Respiratory: no respiratory distress, no rales or rhonchi, clear to auscultation Gastrointestinal: normoactive bowel sounds, soft, non-tender abdomen, no palpable masses Skin: no rashes or abrasions, no fluctuance, no induration Neurologic: AAOx3, sensation intact bilaterally Psychiatric: interacting appropriately, not anxious, not encephalopathic, thought process linear ICD10 Worksheet Patient Problems: Problems Problem Status Onset Atrial flutter Acute Pleural effusion, right Acute Hypoxemia Acute Recurrent right pleural effusion Acute
[2016-10-19] MEDS ORDERED: WARFARIN SODIUM 2.5 MG TAB PO SCH (16:00)
[2016-10-19] MEDS: FLUOROURACIL IV SCH (16:37)
[2016-10-19] MEDS: D5W IV SCH (16:37)
[2016-10-19] MEDS: amLODIPine BESYLATE 5 MG TAB PO SCH (20:23)
[2016-10-19] MEDS: LATANOPROST 0.005% 2.5 ML OPHT DROPS EACHEYE SCH (20:23)
[2016-10-19] MEDS: ATORVASTATIN CALCIUM 20 MG TAB PO SCH (20:24)
[2016-10-20 05:40] LABS: PROTIME(PATIENT) 22.8 SEC (12.0-15.0)
[2016-10-20] MEDS: FOLIC ACID 1 MG TAB PO SCH (08:44)
[2016-10-20] MEDS: DILTIAZEM CD 300 MG CAP PO SCH (08:44)
[2016-10-20] MEDS: PRESERVISION AREDS2 FORMULA EYE VIT 1 EACH PO SCH ×2 (08:45→21:24)
[2016-10-20] MEDS: OMEGA-3 FATTY ACIDS 1,000 MG CAP PO SCH (08:45)
[2016-10-20] MEDS: DIGOXIN 125 MCG TAB PO SCH (08:45)
--- NOTE | 2016-10-20 10:36 | SOAPPROG ---
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 His stage is IV. Chemotherapy will continue finish today. Day 1 is October 18, 2016 He will need a port prior to discharge - plan is for tomorrow 2. Loculated pleural effusions - may get second chest tube out tomorrow, although ct drainage is up a bit 3. Ludin, on therapeutic warfarin, will need to follow Plan: continue folfox, will consider Zometa as an outpt given bone mets, will follow up in office post d/c 10/20/16 10:31 Subjective: Feels well Objective: Vital Signs Temp Pulse Resp BP Pulse Ox 97.9 F 81 18 124/64 H 94 10/20/16 09:35 10/20/16 09:35 10/20/16 09:35 10/20/16 09:35 10/20/16 09:35 Laboratory Results 10/18/16 05:45 10/18/16 05:45 10/19/16 10/20/16 10/21/16 05:59 05:59 05:59 Intake Total 2199 1702 Output Total 1999 1570 Balance 199 132 PT 22.8 SEC (12.0-15.0) H 10/20/16 04:04 INR 2.00 (0.83-1.16) H 10/20/16 04:04 Physical Exam - Physical Exam General Appearance: alert, no apparent distress Respiratory: decreased breath sounds (R base) ICD10 Worksheet Patient Problems: Problems Problem Status Onset Atrial flutter Acute Pleural effusion, right Acute Hypoxemia Acute Recurrent right pleural effusion Acute
--- NOTE | 2016-10-20 12:22 | SOAPPROG ---
SOAP Progress Note Assessment/Plan: Assessment: Port planned for AM as chemotherapy is running. Follow CT OP. Plan: 10/09/16 19:35 10/10/16 12:54 10/12/16 11:11 10/13/16 13:00 10/14/16 11:28 10/15/16 13:52 10/17/16 11:14 10/18/16 14:49 10/19/16 11:19 10/20/16 12:21 Subjective: No complaints Objective: Vital Signs Temp Pulse Resp BP Pulse Ox 36.4 C 78 16 105/57 L 93 10/20/16 12:00 10/20/16 12:00 10/20/16 12:00 10/20/16 12:00 10/20/16 12:00 Laboratory Results 10/18/16 05:45 10/18/16 05:45 10/19/16 10/20/16 10/21/16 05:59 05:59 05:59 Intake Total 2199 1702 Output Total 1999 1570 Balance 199 132 PT 22.8 SEC (12.0-15.0) H 10/20/16 04:04 INR 2.00 (0.83-1.16) H 10/20/16 04:04 Alert, NAD CT tidals well, no leak CT serosang ICD10 Worksheet Patient Problems: Problems Problem Status Onset Atrial flutter Acute Pleural effusion, right Acute Hypoxemia Acute Recurrent right pleural effusion Acute
--- NOTE | 2016-10-20 12:42 | HOSPPROG ---
Hospitalist Progress Note Assessment/Plan: * Adenocarcinoma of unknown primary - metastatic -initiating chemo * Malignant pleural effusion s/p VATS x 2 -chest tubes - hopefully decrease drainage with chemo -1 chest out, 1 remains -s/p levaquin for possible pneumonia * Acute on chronic respiratory failure - O2 * A flutter -rate controlled on digoxin + diltiazem -warfarin - follow INR Subjective: No new complaints. Port placment reschedule for tomorrow am. Objective: Vital Signs Temp Pulse Resp BP Pulse Ox 36.4 C 78 16 105/57 L 93 10/20/16 12:00 10/20/16 12:00 10/20/16 12:00 10/20/16 12:00 10/20/16 12:00 Laboratory Results 10/18/16 05:45 10/18/16 05:45 10/19/16 10/20/16 10/21/16 05:59 05:59 05:59 Intake Total 2199 1702 Output Total 2000 1570 Balance 199 132 PT 22.8 SEC (12.0-15.0) H 10/20/16 04:04 INR 2.00 (0.83-1.16) H 10/20/16 04:04 - Physical Exam Constitutional: no apparent distress, appears nourished, not in pain Cardiovascular: regular rate and rhythym, no murmur, rub, or gallop Respiratory: no respiratory distress, no rales or rhonchi, clear to auscultation Gastrointestinal: normoactive bowel sounds, soft, non-tender abdomen, no palpable masses Skin: no rashes or abrasions, no fluctuance, no induration Neurologic: AAOx3, sensation intact bilaterally Psychiatric: interacting appropriately, not anxious, not encephalopathic, thought process linear ICD10 Worksheet Patient Problems: Problems Problem Status Onset Atrial flutter Acute Pleural effusion, right Acute Hypoxemia Acute Recurrent right pleural effusion Acute
[2016-10-20] MEDS: POLYETHYLENE GLYCOL 3350 17 GM PKT PO SCH (19:23)
[2016-10-20] MEDS ORDERED: POLYETHYLENE GLYCOL 3350 17 GM PKT PO SCH (21:00)
[2016-10-20] MEDS: LATANOPROST 0.005% 2.5 ML OPHT DROPS EACHEYE SCH (21:24)
[2016-10-20] MEDS: ATORVASTATIN CALCIUM 20 MG TAB PO SCH (21:24)
[2016-10-20] MEDS: amLODIPine BESYLATE 5 MG TAB PO SCH (21:24)
[2016-10-21 04:34] LABS: INR 1.68 (0.83-1.16); PROTIME(PATIENT) 19.8 SEC (12.0-15.0)
--- NOTE | 2016-10-21 07:23 | SOAPPROG ---
SOAP Progress Note Assessment/Plan: Assessment: 1) Metastatic carcinoma of unknown primary (suspect upper GI source) 2) Bilateral malignant pleural effusions. 3) S/P cycle #1 palliative FOLFOX (completed yesterday) Plan: Overall feels well. He has not experienced any treatment related toxicity thus far. Plan mediport placement today. Possible d/c remaining CT today. Possible d/c tomorrow with outpatient follow up. Next FOLFOX due in 2 weeks. Plan d/w patient. 10/21/16 07:19 Subjective: Feels well. Denies N/V. Denies pain Objective: Vital Signs Temp Pulse Resp BP Pulse Ox 36.8 C 73 16 115/59 L 93 10/21/16 05:30 10/21/16 05:30 10/21/16 05:30 10/21/16 05:30 10/21/16 05:30 Laboratory Results 10/18/16 05:45 10/18/16 05:45 10/20/16 10/21/16 10/22/16 05:59 05:59 05:59 Intake Total 1702 1520 Output Total 1570 2210 Balance 132 -690 PT 19.8 SEC (12.0-15.0) H 10/21/16 04:00 INR 1.68 (0.83-1.16) H 10/21/16 04:00 - Time Spent With Patient Time Spent With Patient: 25 minutes Physical Exam - Physical Exam General Appearance: alert, no apparent distress EENT: PERRL/EOMI Respiratory: other (Right CT in place.) Neuro/Psych: alert, normal mood/affect ICD10 Worksheet Patient Problems: Problems Problem Status Onset Atrial flutter Acute Pleural effusion, right Acute Hypoxemia Acute Recurrent right pleural effusion Acute
[2016-10-21] MEDS ORDERED: BUPIVACAINE 0.5% 30 ML SDV ONE (08:10)
[2016-10-21] MEDS ORDERED: PROPOFOL/EMULSION 500 MG/50 ML BOTTLE IV ONE (08:23)
[2016-10-21] MEDS ORDERED: fentaNYL 100 MCG/2 ML INJ ONE (08:23)
[2016-10-21] MEDS ORDERED: MIDAZOLAM 2 MG/2 ML VIAL ONE (08:23)
[2016-10-21] MEDS ORDERED: ceFAZolin 2 GM/DEXTROSE 100 ML IV ONE (08:30)
--- NOTE | 2016-10-21 09:33 | POSTOPPROG ---
Post Op Note Date of Operation: 10/21/16 Surgeon: Edilson Badillo Anesthesiologist: Dr. Calderon Anesthesia: IV Sedation Pre-op Diagnosis: AdenoCA Procedure: L SC port Inf/Abcess present in the surg proc area at time of surgery?: No EBL: Minimal
--- NOTE | 2016-10-21 10:47 | GOP ---
[f rep st] OPERATIVE REPORT DATE OF OPERATION: 10/21/2016 SURGEON: Ga Badillo MD ANESTHESIA: Monitored anesthetic care. ANESTHESIOLOGIST: Dr. Calderon. PREOPERATIVE DIAGNOSIS: Metastatic adenocarcinoma. POSTOPERATIVE DIAGNOSIS: Metastatic adenocarcinoma. PROCEDURE PERFORMED: Port-A-Cath placement. FINDINGS: Left-sided subclavian port was placed. ESTIMATED BLOOD LOSS: 20 cc. INDICATIONS: 76-year-old male with metastatic adenocarcinoma of unknown primary. Patient is curren tly undergoing chemotherapy. Risks and benefits of the procedure were discussed with the patient's family, their questions were answered, they wished to proceed. DESCRIPTION OF PROCEDURE: The patient was in the supine position. After the induction of adequate IV sedation, the patient was prepped and draped in the standard surgical fashion. Marcaine 0.5% was injected throughout the left chest for local anesthesia. A finder needle was used to aspirate the left subclavian vein. After dark, nonpulsatile blood was aspirated, the wire threaded without diffi culty. Placement was confirmed on fluoroscopy. Next, the pocket site was created using a transverse incision with a #15 blade. This was carried down to the subcutaneous tissue with Bovie cautery and blunt dissection. A pocket was created inferiorly in a similar fashion. The wire site was widened with a #11 blade. The catheter was then tunneled from pocket site to the wire site. The dilator a nd sheath were then placed over the wire. Placement was confirmed on fluoroscopy. The wire and dil ator were removed and the catheter was threaded through the sheath. The placement was then adjusted under fluoroscopy. The pre-flushed catheter and port were then attached after trimming the catheter . The catheter was sutured to the anterior chest wall using 2-0 Prolene in an interrupted fashion. It aspirated and flushed easily, and placement was once again confirmed under fluoroscopy. The poc ket was closed in layers using 3-0 Vicryl in an interrupted fashion for the subcutaneous tissue. The skin at all sites was closed with 4-0 Monocryl in a subcuticular stitch. The wound was dressed wit h Dermabond. The patient was then taken to the postanesthesia care unit in stable condition. The right subclavian was attempted first. Wire was threaded, but angled into the neck. This could not be altered despite maneuvering the patient. Internal jugular vein could not be accessed via the finder needle. COMPLICATIONS: None. DRAINS: None. /[id number]/MODL
[2016-10-21] MEDS: PRESERVISION AREDS2 FORMULA EYE VIT 1 EACH PO SCH ×2 (13:35→22:34)
[2016-10-21] MEDS: OMEGA-3 FATTY ACIDS 1,000 MG CAP PO SCH (13:36)
[2016-10-21] MEDS: DILTIAZEM CD 300 MG CAP PO SCH (13:36)
[2016-10-21] MEDS: DIGOXIN 125 MCG TAB PO SCH (13:37)
[2016-10-21] MEDS: FOLIC ACID 1 MG TAB PO SCH (13:38)
[2016-10-21] MEDS: POLYETHYLENE GLYCOL 3350 17 GM PKT PO SCH (13:39)
--- NOTE | 2016-10-21 14:41 | HOSPPROG ---
Hospitalist Progress Note Assessment/Plan: * Adenocarcinoma of unknown primary - metastatic -s/p initiating chemo * Malignant pleural effusion s/p VATS x 2 -chest tubes - hopefully decrease drainage with chemo -1 chest out, 1 remains -s/p levaquin for possible pneumonia -if chest tube output remain high - consider Pleurx catheter * Acute on chronic respiratory failure - O2 * A flutter -rate controlled on digoxin + diltiazem -continue to hold warfarin given need for possible Pleurx Subjective: No complaints. Objective: Vital Signs Temp Pulse Resp BP Pulse Ox 36.4 C 104 H 16 111/63 96 10/21/16 12:49 10/21/16 13:37 10/21/16 12:49 10/21/16 12:49 10/21/16 12:49 Laboratory Results 10/18/16 05:45 10/18/16 05:45 10/20/16 10/21/16 10/22/16 05:59 05:59 05:59 Intake Total 1702 1520 750 Output Total 1570 2210 20 Balance 132 -690 730 PT 19.8 SEC (12.0-15.0) H 10/21/16 04:00 INR 1.68 (0.83-1.16) H 10/21/16 04:00 d/w Dr. Badillo - if pleural fluid output remain high, then consider Pleurx CXR - good port placement without PTX - Physical Exam Constitutional: no apparent distress, appears nourished, not in pain Cardiovascular: regular rate and rhythym, no murmur, rub, or gallop Respiratory: no respiratory distress, no rales or rhonchi, clear to auscultation Gastrointestinal: normoactive bowel sounds, soft, non-tender abdomen, no palpable masses Skin: no rashes or abrasions, no fluctuance, no induration Neurologic: AAOx3, sensation intact bilaterally Psychiatric: interacting appropriately, not anxious, not encephalopathic, thought process linear ICD10 Worksheet Patient Problems: Problems Problem Status Onset Atrial flutter Acute Pleural effusion, right Acute Hypoxemia Acute Recurrent right pleural effusion Acute
[2016-10-21] MEDS: LATANOPROST 0.005% 2.5 ML OPHT DROPS EACHEYE SCH (22:34)
[2016-10-21] MEDS: amLODIPine BESYLATE 5 MG TAB PO SCH (22:34)
[2016-10-21] MEDS: ATORVASTATIN CALCIUM 20 MG TAB PO SCH (22:34)
[2016-10-22 06:54] LABS: % IMMATURE GRANULYOCYTES 0.3 % (0.0-1.1); ABSOLUTE IMMATURE GRANULOCYTES 0.02 10^3/uL (0.00-0.10); ADD DIFF? NO; ADD MORPH? NO; ADD SCAN? NO; ATYPICAL LYMPHOCYTE FLAG 0 (0-99); FRAGMENT RBC FLAG 0 (0-99); HEMATOCRIT 31.5 % (40.0-51.0); HEMOGLOBIN 10.3 g/dL (13.7-17.5); LEFT SHIFT FLG 0 (0-99); LIPEMIA HEMOLYSIS FLAG 80 (0-99); MEAN CELL HEMOGLOBIN CONCENTR. 32.7 g/dL (32.4-36.7); MEAN CELL VOLUME 85.6 fL (81.5-99.8); MEAN PLATELET VOLUME 9.7 fL (8.7-11.7); PLATELET CLUMPS FLAG 0 (0-99); PLATELET COUNT 403 10^3/uL (150-400); RED BLOOD CELL COUNT 3.68 10^6/uL (4.40-6.38); RED CELL DISTRIBUTION WIDTH 13.3 % (11.5-15.2)
[2016-10-22 07:19] LABS: ANION GAP 3 mEq/L (8-16); CALCIUM 8.4 mg/dL (8.5-10.4); CARBON DIOXIDE 30 mEq/l (22-31); CHLORIDE 100 mEq/L (97-110); CREATININE 0.6 mg/dL (0.7-1.3); GLOMERULAR FILTRATION RATE > 60; GLUCOSE 88 mg/dL (70-100); POTASSIUM 4.3 mEq/L (3.5-5.2); SODIUM 133 mEq/L (134-144)
[2016-10-22 07:21] LABS: INR 1.37 (0.83-1.16); PROTIME(PATIENT) 16.9 SEC (12.0-15.0)
[2016-10-22] MEDS: DILTIAZEM CD 300 MG CAP PO SCH (09:40)
[2016-10-22] MEDS: PRESERVISION AREDS2 FORMULA EYE VIT 1 EACH PO SCH ×2 (09:40→22:40)
[2016-10-22] MEDS: FOLIC ACID 1 MG TAB PO SCH (09:40)
[2016-10-22] MEDS: POLYETHYLENE GLYCOL 3350 17 GM PKT PO SCH (09:42)
[2016-10-22] MEDS: OMEGA-3 FATTY ACIDS 1,000 MG CAP PO SCH (09:42)
[2016-10-22] MEDS: DIGOXIN 125 MCG TAB PO SCH (11:30)
--- NOTE | 2016-10-22 13:00 | SOAPPROG ---
SOAP Progress Note Assessment/Plan: Assessment: 1) Metastatic carcinoma of unknown primary (suspect upper GI source) 2) Bilateral malignant pleural effusions. 3) S/P cycle #1 palliative FOLFOX (completed ) Plan: Overall feels well. He has not experienced any treatment related toxicity thus far. Mediport placement yesterday. Main issue at this point is the remaining Right chest tube. He may require placement of a Pleurex. Will defer this to surgery. Next FOLFOX due in 2 weeks. Will arrange outpatient follow up once he is discharged. Plan d/w patient / nursing. 10/21/16 07:19 10/22/16 12:51 Subjective: Mediport placed yesterday. Chest tube output persists. Denies pain. Objective: Vital Signs Temp Pulse Resp BP Pulse Ox 37.1 C 72 16 115/68 93 10/22/16 07:28 10/22/16 07:28 10/22/16 07:28 10/22/16 07:28 10/22/16 07:28 Laboratory Results 10/22/16 06:35 10/22/16 06:35 10/21/16 10/22/16 10/23/16 05:59 05:59 05:59 Intake Total 1520 2500 Output Total 2210 2070 258 Balance -690 430 -258 PT 16.9 SEC (12.0-15.0) H 10/22/16 06:35 INR 1.37 (0.83-1.16) H 10/22/16 06:35 - Time Spent With Patient Time Spent With Patient: 25 minutes Physical Exam - Physical Exam General Appearance: alert, no apparent distress EENT: PERRL/EOMI Respiratory: lungs clear Cardiac/Chest: normal peripheral pulses, regular rate, rhythm Neuro/Psych: alert, normal mood/affect ICD10 Worksheet Patient Problems: Problems Problem Status Onset Atrial flutter Acute Pleural effusion, right Acute Hypoxemia Acute Recurrent right pleural effusion Acute
[2016-10-22] MEDS ORDERED: HEPARIN 10,000 UNIT/10 ML MDV IVP PRN (14:25)
--- NOTE | 2016-10-22 14:45 | HOSPPROG ---
Hospitalist Progress Note Assessment/Plan: * Adenocarcinoma of unknown primary - metastatic -malignant pleural effusion + 2 bone mets -PET didn't reveal source - suspect UGI -s/p initiating chemo * Malignant pleural effusion s/p VATS x 2 -chest tube - hopefully decrease drainage with chemo -1 chest out, 1 remains -s/p levaquin for possible pneumonia -if chest tube output remain high - consider Pleurx catheter -chest tube output decreasing - wait 1-2 more days before Pleurx * Acute on chronic respiratory failure - O2 * A flutter -rate controlled on digoxin + diltiazem -continue to hold warfarin given need for possible Pleurx -IV heparin Subjective: No new complaints. Objective: Vital Signs Temp Pulse Resp BP Pulse Ox 37.1 C 85 16 115/68 93 10/22/16 07:28 10/22/16 11:30 10/22/16 07:28 10/22/16 07:28 10/22/16 07:28 Laboratory Results 10/22/16 06:35 10/22/16 06:35 10/21/16 10/22/16 10/23/16 05:59 05:59 05:59 Intake Total 1520 2500 Output Total 2210 2070 258 Balance -690 430 -258 PT 16.9 SEC (12.0-15.0) H 10/22/16 06:35 INR 1.37 (0.83-1.16) H 10/22/16 06:35 d/w Dr. Badillo - wait another 1-2 days before moving forward with Pleurx - Physical Exam Constitutional: no apparent distress, appears nourished, not in pain Cardiovascular: regular rate and rhythym, no murmur, rub, or gallop Respiratory: no respiratory distress, no rales or rhonchi, clear to auscultation Gastrointestinal: normoactive bowel sounds, soft, non-tender abdomen, no palpable masses Skin: no rashes or abrasions, no fluctuance, no induration Neurologic: AAOx3, sensation intact bilaterally Psychiatric: interacting appropriately, not anxious, not encephalopathic, thought process linear ICD10 Worksheet Patient Problems: Problems Problem Status Onset Atrial flutter Acute Pleural effusion, right Acute Hypoxemia Acute Recurrent right pleural effusion Acute
--- NOTE | 2016-10-22 15:29 | SOAPPROG ---
SOAP Progress Note Assessment/Plan: Assessment: CT OP improving but not optimal. Will allow more time, but if no improvement may require pleural cath placement. Will tentatively schedule for 10/24/16. D/w patient and family. Plan: 10/09/16 19:35 10/10/16 12:54 10/12/16 11:11 10/13/16 13:00 10/14/16 11:28 10/15/16 13:52 10/17/16 11:14 10/18/16 14:49 10/19/16 11:19 10/20/16 12:21 10/22/16 15:26 Subjective: No complaints, denies pain, SOB. Objective: Vital Signs Temp Pulse Resp BP Pulse Ox 37.1 C 85 16 115/68 93 10/22/16 07:28 10/22/16 11:30 10/22/16 07:28 10/22/16 07:28 10/22/16 07:28 Laboratory Results 10/22/16 06:35 10/22/16 06:35 10/21/16 10/22/16 10/23/16 05:59 05:59 05:59 Intake Total 1520 2500 Output Total 2210 2070 258 Balance -690 430 -258 PT 16.9 SEC (12.0-15.0) H 10/22/16 06:35 INR 1.37 (0.83-1.16) H 10/22/16 06:35 Alert, NAD CT tidals well, no leak ICD10 Worksheet Patient Problems: Problems Problem Status Onset Atrial flutter Acute Pleural effusion, right Acute Hypoxemia Acute Recurrent right pleural effusion Acute
[2016-10-22] MEDS: HEPARIN/DEXTROSE 500 ML IV SCH (15:57)
[2016-10-22 16:43] LABS: % IMMATURE GRANULYOCYTES 0.4 % (0.0-1.1); ABSOLUTE IMMATURE GRANULOCYTES 0.03 10^3/uL (0.00-0.10); ADD DIFF? NO; ADD MORPH? NO; ADD SCAN? NO; ATYPICAL LYMPHOCYTE FLAG 0 (0-99); FRAGMENT RBC FLAG 0 (0-99); HEMATOCRIT 31.3 % (40.0-51.0); HEMOGLOBIN 10.4 g/dL (13.7-17.5); LEFT SHIFT FLG 10 (0-99); LIPEMIA HEMOLYSIS FLAG 80 (0-99); MEAN CELL HEMOGLOBIN 28.5 pg (27.9-34.1); MEAN CELL HEMOGLOBIN CONCENTR. 33.2 g/dL (32.4-36.7); MEAN CELL VOLUME 85.8 fL (81.5-99.8); MEAN PLATELET VOLUME 9.7 fL (8.7-11.7); PLATELET CLUMPS FLAG 0 (0-99); PLATELET COUNT 407 10^3/uL (150-400); RED BLOOD CELL COUNT 3.65 10^6/uL (4.40-6.38); RED CELL DISTRIBUTION WIDTH 13.3 % (11.5-15.2)
[2016-10-22 17:05] LABS: INR 1.31 (0.83-1.16); PROTIME(PATIENT) 16.3 SEC (12.0-15.0)
[2016-10-22 17:06] LABS: APTT 32.5 SEC (23.0-38.0)
[2016-10-22] MEDS: ATORVASTATIN CALCIUM 20 MG TAB PO SCH (22:40)
[2016-10-22] MEDS: LATANOPROST 0.005% 2.5 ML OPHT DROPS EACHEYE SCH (22:40)
[2016-10-22] MEDS: amLODIPine BESYLATE 5 MG TAB PO SCH (22:40)
[2016-10-23 05:23] LABS: INR 1.36 (0.83-1.16); PROTIME(PATIENT) 16.8 SEC (12.0-15.0)
[2016-10-23] MEDS: HEPARIN/DEXTROSE 500 ML IV SCH ×2 (09:19→23:56)
[2016-10-23] MEDS: FOLIC ACID 1 MG TAB PO SCH (09:27)
[2016-10-23] MEDS: PRESERVISION AREDS2 FORMULA EYE VIT 1 EACH PO SCH ×2 (09:27→20:10)
[2016-10-23] MEDS: DILTIAZEM CD 300 MG CAP PO SCH (09:27)
[2016-10-23] MEDS: OMEGA-3 FATTY ACIDS 1,000 MG CAP PO SCH (09:27)
[2016-10-23] MEDS: DIGOXIN 125 MCG TAB PO SCH (09:31)
[2016-10-23] MEDS: POLYETHYLENE GLYCOL 3350 17 GM PKT PO SCH (09:34)
--- NOTE | 2016-10-23 11:25 | SOAPPROG ---
SOAP Progress Note Assessment/Plan: Assessment: CT OP increased. Schedule for tunneled cath placement 10/24/16. Plan: 10/09/16 19:35 10/10/16 12:54 10/12/16 11:11 10/13/16 13:00 10/14/16 11:28 10/15/16 13:52 10/17/16 11:14 10/18/16 14:49 10/19/16 11:19 10/20/16 12:21 10/22/16 15:26 10/23/16 11:24 Subjective: Patient without complaints Objective: Vital Signs Temp Pulse Resp BP Pulse Ox 36.8 C 75 18 122/76 H 95 10/23/16 07:40 10/23/16 09:31 10/23/16 07:40 10/23/16 09:27 10/23/16 07:40 Laboratory Results 10/22/16 16:20 10/22/16 06:35 10/22/16 10/23/16 10/24/16 05:59 05:59 05:59 Intake Total 2500 987 350 Output Total 2070 1233 250 Balance 430 -246 100 PT 16.8 SEC (12.0-15.0) H 10/23/16 05:00 INR 1.36 (0.83-1.16) H 10/23/16 05:00 Alert, NAD CT tidals well, no leak Serosang OP ICD10 Worksheet Patient Problems: Problems Problem Status Onset Atrial flutter Acute Pleural effusion, right Acute Hypoxemia Acute Recurrent right pleural effusion Acute
--- NOTE | 2016-10-23 11:57 | HOSPPROG ---
Hospitalist Progress Note Assessment/Plan: * Adenocarcinoma of unknown primary - metastatic -malignant pleural effusion + 2 bone mets -PET didn't reveal source - suspect UGI versus pancreas -s/p initiating chemo * Malignant pleural effusion s/p VATS x 2 -chest tube - hopefully decrease drainage with chemo -1 chest out, 1 remains -s/p levaquin for possible pneumonia - will get PleurX catheter tomorrow * Acute on chronic respiratory failure - O2 * A flutter -rate controlled on digoxin + diltiazem -continue to hold warfarin given need for possible Pleurx -IV heparin - would like to revisit issue of anticoagulation in this patient. May consider Cardiology consult. I am wondering if cardioversion may be indicated - today we will get EKG to make sure he still in a flutter versus a sinus rhythm Subjective: feels well. No new complaints Objective: Vital Signs Temp Pulse Resp BP Pulse Ox 36.6 C 85 18 116/67 95 10/23/16 11:47 10/23/16 11:47 10/23/16 11:47 10/23/16 11:47 10/23/16 11:47 Laboratory Results 10/22/16 16:20 10/22/16 06:35 10/22/16 10/23/16 10/24/16 05:59 05:59 05:59 Intake Total 2500 987 350 Output Total 2070 1233 250 Balance 430 -246 100 PT 16.8 SEC (12.0-15.0) H 10/23/16 05:00 INR 1.36 (0.83-1.16) H 10/23/16 05:00 - Physical Exam Constitutional: no apparent distress, appears nourished, not in pain Eyes: anicteric sclera, EOMI Ears, Nose, Mouth, Throat: moist mucous membranes, hearing normal, ears appear normal Cardiovascular: regular rate and rhythym, no murmur, rub, or gallop, No edema Respiratory: no respiratory distress, no rales or rhonchi, clear to auscultation Gastrointestinal: normoactive bowel sounds, soft, non-tender abdomen, no palpable masses Skin: warm Neurologic: AAOx3 Psychiatric: interacting appropriately, not anxious, not encephalopathic, thought process linear ICD10 Worksheet Patient Problems: Problems Problem Status Onset Atrial flutter Acute Pleural effusion, right Acute Hypoxemia Acute Recurrent right pleural effusion Acute
--- NOTE | 2016-10-23 12:22 | CPEKG ---
Heart Rate: 76 RR Interval: 789 QRSD Interval: 112 QT Interval: 448 QTC Interval: 504 QRS Kotlik: -50 T Wave Kotlik: -5 EKG Severity - ABNORMAL ECG - EKG Impression: A-FLUTTER W/ PREDOM 4:1 AV BLOCK, A-RATE 294 EKG Impression: LAD, CONSIDER LEFT ANTERIOR FASCICULAR BLOCK EKG Impression: PROBABLE LATERAL INFARCT, OLD Electronically Signed By: Maycol Jiménez 24-Oct-2016 08:02:49
[2016-10-23] MEDS: LATANOPROST 0.005% 2.5 ML OPHT DROPS EACHEYE SCH (20:10)
[2016-10-23] MEDS: amLODIPine BESYLATE 5 MG TAB PO SCH (20:10)
[2016-10-23] MEDS: ATORVASTATIN CALCIUM 20 MG TAB PO SCH (20:10)
[2016-10-24 05:28] LABS: % IMMATURE GRANULYOCYTES 0.4 % (0.0-1.1); ABSOLUTE IMMATURE GRANULOCYTES 0.03 10^3/uL (0.00-0.10); ADD DIFF? NO; ADD MORPH? NO; ADD SCAN? NO; ATYPICAL LYMPHOCYTE FLAG 0 (0-99); FRAGMENT RBC FLAG 0 (0-99); HEMATOCRIT 29.4 % (40.0-51.0); HEMOGLOBIN 9.7 g/dL (13.7-17.5); LEFT SHIFT FLG 10 (0-99); LIPEMIA HEMOLYSIS FLAG 80 (0-99); MEAN CELL HEMOGLOBIN 28.2 pg (27.9-34.1); MEAN CELL VOLUME 85.5 fL (81.5-99.8); MEAN PLATELET VOLUME 9.8 fL (8.7-11.7); PLATELET CLUMPS FLAG 0 (0-99); PLATELET COUNT 379 10^3/uL (150-400); RED BLOOD CELL COUNT 3.44 10^6/uL (4.40-6.38); RED CELL DISTRIBUTION WIDTH 13.3 % (11.5-15.2)
[2016-10-24 06:47] LABS: ANION GAP 5 mEq/L (8-16); CALCIUM 8.2 mg/dL (8.5-10.4); CARBON DIOXIDE 31 mEq/l (22-31); CHLORIDE 101 mEq/L (97-110); CREATININE 0.7 mg/dL (0.7-1.3); GLOMERULAR FILTRATION RATE > 60; GLUCOSE 96 mg/dL (70-100); POTASSIUM 3.8 mEq/L (3.5-5.2); SODIUM 137 mEq/L (134-144)
--- NOTE | 2016-10-24 08:01 | SOAPPROG ---
[facility] Progress Note Assessment/Plan: Assessment: 1) Metastatic carcinoma of unknown primary (suspect upper GI source) 2) Bilateral malignant pleural effusions. 3) S/P cycle #1 palliative FOLFOX (completed ) Plan: Overall feels well. He has not experienced any treatment related toxicity thus far. Mediport has been placed Main issue at this point is the remaining Right chest tube. He is scheduled for placement of a Pleurex catheter today. Next FOLFOX due in 2 weeks. Will arrange outpatient follow up once he is discharged. He will likely be discharged tomorrow. Plan d/w patient. 10/21/16 07:19 10/22/16 12:51 10/24/16 07:59 Subjective: Feels well. Scheduled for placement of Right pleurex catheter today. Objective: Vital Signs Temp Pulse Resp BP Pulse Ox 36.8 C 73 16 111/65 94 10/24/16 04:00 10/24/16 04:00 10/24/16 04:00 10/24/16 04:00 10/24/16 04:00 Laboratory Results 10/24/16 05:20 10/24/16 05:20 10/23/16 10/24/16 10/25/16 05:59 05:59 05:59 Intake Total 987 1937 Output Total 1233 907.00 Balance -246 1030.00 PT 16.8 SEC (12.0-15.0) H 10/23/16 05:00 INR 1.36 (0.83-1.16) H 10/23/16 05:00 - Time Spent With Patient Time Spent With Patient: 20 minutes Physical Exam - Physical Exam General Appearance: alert, no apparent distress Neuro/Psych: alert, normal mood/affect ICD10 Worksheet Patient Problems: Problems Problem Status Onset Atrial flutter Acute Pleural effusion, right Acute Hypoxemia Acute Recurrent right pleural effusion Acute
--- NOTE | 2016-10-24 10:17 | SOAPPROG ---
SOAP Progress Note Assessment/Plan: Assessment: OP decreased but still significant. Options d/w, patient wishes to proceed with pleurex cath. Plan: 10/09/16 19:35 10/10/16 12:54 10/12/16 11:11 10/13/16 13:00 10/14/16 11:28 10/15/16 13:52 10/17/16 11:14 10/18/16 14:49 10/19/16 11:19 10/20/16 12:21 10/22/16 15:26 10/23/16 11:24 10/24/16 10:16 Subjective: No complaints Objective: Vital Signs Temp Pulse Resp BP Pulse Ox 36.7 C 76 18 130/77 H 94 10/24/16 08:00 10/24/16 08:00 10/24/16 08:00 10/24/16 08:00 10/24/16 08:00 Laboratory Results 10/24/16 05:20 10/24/16 05:20 10/23/16 10/24/16 10/25/16 05:59 05:59 05:59 Intake Total 987 1937 Output Total 1233 907.00 Balance -246 1030.00 PT 16.8 SEC (12.0-15.0) H 10/23/16 05:00 INR 1.36 (0.83-1.16) H 10/23/16 05:00 Alert, NAD CT tidals, no leak OP serosang ICD10 Worksheet Patient Problems: Problems Problem Status Onset Atrial flutter Acute Pleural effusion, right Acute Hypoxemia Acute Recurrent right pleural effusion Acute
[2016-10-24] MEDS ORDERED: POLYMYXIN B SULFATE 500,000 UNIT/10 ML SYR IRR ONE (10:19)
[2016-10-24] MEDS ORDERED: LIDOCAINE 1% 30 ML SDV ONE (10:19)
[2016-10-24] MEDS ORDERED: BACITRACIN 50,000 UNITS/10 ML SYR IRR ONE (10:19)
[2016-10-24] MEDS ORDERED: BUPIVACAINE/EPI 0.5% 30 ML SDV ONE (10:19)
[2016-10-24] MEDS: DILTIAZEM CD 300 MG CAP PO SCH (10:22)
[2016-10-24] MEDS: OMEGA-3 FATTY ACIDS 1,000 MG CAP PO SCH (10:23)
[2016-10-24] MEDS: DIGOXIN 125 MCG TAB PO SCH (10:23)
[2016-10-24] MEDS: FOLIC ACID 1 MG TAB PO SCH (10:23)
[2016-10-24] MEDS: PRESERVISION AREDS2 FORMULA EYE VIT 1 EACH PO SCH ×2 (10:23→20:52)
[2016-10-24] MEDS: POLYETHYLENE GLYCOL 3350 17 GM PKT PO SCH (10:36)
--- NOTE | 2016-10-24 11:36 | HOSPPROG ---
Hospitalist Progress Note Assessment/Plan: * Adenocarcinoma of unknown primary - metastatic -malignant pleural effusion + 2 bone mets -PET didn't reveal source - suspect UGI versus pancreas -s/p initiating chemo * Malignant pleural effusion s/p VATS x 2 -chest tube - hopefully decrease drainage with chemo -1 chest out, 1 remains -s/p levaquin for possible pneumonia - will get PleurX catheter today * Acute on chronic respiratory failure - O2 * A flutter -rate controlled on digoxin + diltiazem -continue to hold warfarin given need for possible Pleurx -IV heparin - will have Cardiology see. I am wondering if we should trial cardioversion as our theory is that this was induced by acute respiratory failure. Not sure I would like the idea of him being on digoxin while he is getting chemotherapy. Continue anticoagulation may also be problematic Subjective: no new complaints Objective: Vital Signs Temp Pulse Resp BP Pulse Ox 36.7 C 76 18 130/77 H 94 10/24/16 08:00 10/24/16 10:23 10/24/16 08:00 10/24/16 10:22 10/24/16 08:00 Laboratory Results 10/24/16 05:20 10/24/16 05:20 10/23/16 10/24/16 10/25/16 05:59 05:59 05:59 Intake Total 987 1937 Output Total 1233 907.00 Balance -246 1030.00 PT 16.8 SEC (12.0-15.0) H 10/23/16 05:00 INR 1.36 (0.83-1.16) H 10/23/16 05:00 discussed with Oncology and Cardiology EKG personally reviewed and interpreted a flutter rate controlled - Physical Exam Constitutional: no apparent distress, appears nourished, not in pain Eyes: anicteric sclera, EOMI Ears, Nose, Mouth, Throat: moist mucous membranes, hearing normal, ears appear normal Cardiovascular: regular rate and rhythym, no murmur, rub, or gallop, No edema Respiratory: no respiratory distress, no rales or rhonchi, clear to auscultation Gastrointestinal: normoactive bowel sounds, soft, non-tender abdomen, no palpable masses Skin: warm Neurologic: AAOx3 Psychiatric: interacting appropriately, not anxious, not encephalopathic, thought process linear ICD10 Worksheet Patient Problems: Problems Problem Status Onset Atrial flutter Acute Pleural effusion, right Acute Hypoxemia Acute Recurrent right pleural effusion Acute
[2016-10-24] MEDS ORDERED: fentaNYL 100 MCG/2 ML INJ ONE ×2 (11:46)
[2016-10-24] MEDS ORDERED: PROPOFOL 200 MG/20 ML VIAL ONE ×2 (11:46)
[2016-10-24] MEDS ORDERED: LIDOCAINE 2% 5 ML SDV ONE (11:47)
[2016-10-24] MEDS ORDERED: ceFAZolin 1 GM VIAL ONE ×2 (12:01→12:02)
[2016-10-24] MEDS ORDERED: PHENYLEPHRINE HCL 100 MCG/ML SYR ONE (12:01)
--- NOTE | 2016-10-24 12:40 | POSTOPPROG ---
Post Op Note Date of Operation: 10/24/16 Surgeon: Edilson Badillo Anesthesiologist: Dr. Ivan Anesthesia: LMA Pre-op Diagnosis: Malignant R pleural effusion Post-op Diagnosis: same Procedure: R pleurex cath placement Inf/Abcess present in the surg proc area at time of surgery?: No EBL: Minimal
--- NOTE | 2016-10-24 13:09 | PDCONSULT ---
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 At present, the patient is having a surgical procedure, and the was at bedside. I had a lengthy conversation with the patient today about several options, as discussed below. [id number] score is 3 for age and HTN history. Option 1: (conservative) No cardiovascular interventions. Would consider cessation of the digoxin ( assessment of levels today would be helpful) to allow patient's heart rate to define itself. If Digoxin levels are subtherapeutic, would simply stop the therapy. If they are therapeutic, cessation of the therapy to allow heart rates to drift up, and determine the rates that are achieved. Argument for this option is the patient's heart rates are controlled at present and he is without bandar symptoms (according to the patient's ). Option 2: Pursuit of invasive procedures. If we decide to pursue CLEMENTINE, there is a need for uninterrupted anticoagulant therapy, less there be an elevated risk for thrombus. Coumadin therapy had been consistent, until there was a need for hold to allow a multitude of surgical procedures. Guideline recommendations are for 3-4 weeks of uninterrupted therapy (on Warfarin or coumadin) prior to consideration of CLEMENTINE. If CLEMENTINE without thrombus or clot, cardioversion can be performed, but anticoagulation is mandated for 4 weeks post cardioversion. If thrombus is noted, would maintain uninterrupted coumadin therapy for another 2- 3 weeks prior to repeat of CLEMENTINE. There are also the risks for the procedures listed (CLEMENTINE and cardioversion). Option 3: Perform what procedures need to be done with this inpatient stay. Have the patient set up to see cardiology in the outpatient setting (he has [place]CP [place] at [facility] [place], and my primary office is right above PCP) for further discussion about options, which could be either of the above options, at any time. At this time, the patient is in surgery. I will see patient tomorrow to have this discussion with the patient.
--- NOTE | 2016-10-24 16:36 | GOP ---
[f rep st] OPERATIVE REPORT DATE OF OPERATION: 10/24/2016 SURGEON: Ga Badillo MD ANESTHESIA: Laryngeal mask anesthesia per Dr. Rosenthal. PREOPERATIVE DIAGNOSIS: Right-sided malignant pleural effusion. POSTOPERATIVE DIAGNOSIS: Right-sided malignant pleural effusion. PROCEDURE PERFORMED: Right PleurX catheter placement. FINDINGS: ESTIMATED BLOOD LOSS: 5 cc. INDICATIONS: 76-year-old male with a history of metastatic adenocarcinoma of unknown primary. The patient has a right pleural effusion. This has not improved. Risks and benefits of the procedure w ere discussed with the patient and his family. Their questions were answered, and they wished to pr oceed. DESCRIPTION OF PROCEDURE: The patient was in the supine position initially. After the induction of adequate laryngeal mask anesthesia, the patient was moved to the left lateral decubitus position. He was then prepped and draped in a standard surgical fashion. The old chest tube was clamped. The sutures were divided, and the area below the chest tube insertion site was infiltrated with 0.5% Ma rcaine for local anesthesia. A counter incision was made with a 15 blade just inferior and anterior to the chest tube insertion site. The old chest tube was then removed while holding pressure to pr event pneumothorax. The PleurX catheter was then tunneled from the newly created insertion site to the old chest tube site. It was inserted into the established chest tube tract without difficulty. The cuff was identified approximately 1 cm above the new insertion site. This was attached to the reservoir. The subcutaneous tissue at the old chest tube site was closed in layers using 3-0 Vicryl in interrupted fashion. Skin at all sites was closed with 4-0 Monocryl and subcuticular stitch. W ound was sterilely dressed, and the patient was returned to the supine position and extubated. He w as then taken to the PACU in stable condition. Portable chest x-ray was ordered. COMPLICATIONS: None. DRAINS: Include chest tube. /[id number]/MODL
[2016-10-24] MEDS: LATANOPROST 0.005% 2.5 ML OPHT DROPS EACHEYE SCH (20:53)
[2016-10-24] MEDS: ATORVASTATIN CALCIUM 20 MG TAB PO SCH (21:00)
[2016-10-24] MEDS: amLODIPine BESYLATE 5 MG TAB PO SCH (23:07)
[2016-10-25 00:17] VITALS: RESP 16
[2016-10-25 05:31] LABS: % IMMATURE GRANULYOCYTES 0.2 % (0.0-1.1); ABSOLUTE IMMATURE GRANULOCYTES 0.01 10^3/uL (0.00-0.10); ADD DIFF? NO; ADD MORPH? NO; ADD SCAN? NO; ATYPICAL LYMPHOCYTE FLAG 0 (0-99); FRAGMENT RBC FLAG 0 (0-99); HEMATOCRIT 30.1 % (40.0-51.0); HEMOGLOBIN 9.9 g/dL (13.7-17.5); LEFT SHIFT FLG 0 (0-99); LIPEMIA HEMOLYSIS FLAG 80 (0-99); MEAN CELL HEMOGLOBIN CONCENTR. 32.9 g/dL (32.4-36.7); MEAN CELL VOLUME 85.3 fL (81.5-99.8); MEAN PLATELET VOLUME 9.6 fL (8.7-11.7); PLATELET CLUMPS FLAG 0 (0-99); PLATELET COUNT 380 10^3/uL (150-400); RED BLOOD CELL COUNT 3.53 10^6/uL (4.40-6.38); RED CELL DISTRIBUTION WIDTH 13.2 % (11.5-15.2)
[2016-10-25 05:40] LABS: INR 1.2 (0.83-1.16); PROTIME(PATIENT) 15.2 SEC (12.0-15.0)
[2016-10-25] MEDS ORDERED: ENOXAPARIN 100 MG/ML SYR SC SCH (09:00)
[2016-10-25] MEDS: POLYETHYLENE GLYCOL 3350 17 GM PKT PO SCH (09:27)
[2016-10-25] MEDS: DIGOXIN 125 MCG TAB PO SCH (09:29)
[2016-10-25] MEDS: FOLIC ACID 1 MG TAB PO SCH (09:30)
[2016-10-25] MEDS: PRESERVISION AREDS2 FORMULA EYE VIT 1 EACH PO SCH (09:30)
[2016-10-25] MEDS: DILTIAZEM CD 300 MG CAP PO SCH (09:30)
[2016-10-25] MEDS: OMEGA-3 FATTY ACIDS 1,000 MG CAP PO SCH (09:31)
--- NOTE | 2016-10-25 11:17 | SOAPPROG ---
SOAP Progress Note Assessment/Plan: Assessment: Stable for d/c from surgery standpoint. Cont pleurex and f/u as OP. Plan: 10/09/16 19:35 10/10/16 12:54 10/12/16 11:11 10/13/16 13:00 10/14/16 11:28 10/15/16 13:52 10/17/16 11:14 10/18/16 14:49 10/19/16 11:19 10/20/16 12:21 10/22/16 15:26 10/23/16 11:24 10/24/16 10:16 10/25/16 11:16 Subjective: No complaints Objective: Vital Signs Temp Pulse Resp BP Pulse Ox 36.6 C 75 16 122/91 H 94 10/25/16 08:00 10/25/16 09:30 10/25/16 08:00 10/25/16 09:30 10/25/16 08:00 Laboratory Results 10/25/16 05:20 10/24/16 05:20 10/24/16 10/25/16 10/26/16 05:59 05:59 05:59 Intake Total 1937 1150 200 Output Total 907.00 645 300 Balance 1030.00 505 -100 PT 15.2 SEC (12.0-15.0) H 10/25/16 05:20 INR 1.20 (0.83-1.16) H 10/25/16 05:20 Alert, NAD Drsg C/D/I Per RN OP is 50 cc overnight, serosang. ICD10 Worksheet Patient Problems: Problems Problem Status Onset Atrial flutter Acute Pleural effusion, right Acute Hypoxemia Acute Recurrent right pleural effusion Acute
--- NOTE | 2016-10-25 12:13 | PDCARPN ---
Cardiology Progress Note Chief Complaint: patient doing well today. no voiced complaints Assessment/Plan: Assessment: 10-25-16 No new complaints overnight. Patient feeling well. Digoxin level returned and was noted to be therapeutic. Lengthy discussion about options with patient and yesterday. Given the asymptomatic nature of the patient with respect ( cardiology belief) to the atrial flutter, would refrain from further procedures directed at potential correction of this arrhythmia at present. Patient will require anticoagulation given the arrhythmia and his inability to appreciate it' s presence for CVA prophylaxis. 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 At present, the patient is having a surgical procedure, and the was at bedside. I had a lengthy conversation with the patient today about several options, as discussed below. [id number] score is 3 for age and HTN history. Plan: (1) Would maintain therapy on coumadin as at present (2) Continue therapy on Cardizem and Norvasc for blood pressure control, and some degree of heart rate suppression (3) Statins for HLP to continue (4) Hold on digoxin (5) Outpatient follow up with cardiology in 1-2 weeks for reassessment of rhythm and further discussion about options (? CLEMENTINE/cardioversion or not) (6) Recommendations for patient to regularly use Incentive Spirometry - for lung issues primarily. There is possibility that the patient's arrhythmia would convert to normal sinus rhythm on it's own. Patient and were in agreement with these plans. Subjective: No cardiovascular complaints Reviewed/Discussed With: family, hospitalist, multidisciplinary team Time Spent With Patient: 25 minutes Objective: Vital Signs (8 Hrs) Temp Pulse Resp BP Pulse Ox 10/25/16 09:30 75 122/91 H 10/25/16 09:29 75 10/25/16 08:00 36.6 C 75 16 122/91 H 94 Intake/Output (24 Hrs) 10/24/16 10/25/16 10/26/16 05:59 05:59 05:59 Intake Total 1937 1150 200 Output Total 907.00 645 300 Balance 1030.00 505 -100 Intake: Oral (ml) 1150 550 200 IV Intake (ml) 40 600 IV Infused (ml) 747 Heparin/Dextrose 500 ml @ 747 Per Protocol IV CONT JAVIER Rx#:[id number] Output: Urine (ml) 650 600 300 Bedside Commode 650 600 300 Chest Tube Drainage (ml) 257.00 Location 1 Right Pleural 257.00 Estimated Blood Loss (ml) 5 Wound Drainage (ml) 40 Right Back 40 Other: Intake Quantity Yes Sufficient Output Comment Bedside Commode per patient report Number of Voids Toilet 3 Number of Stools Bedside Commode 1 1 Result Diagrams: 10/25/16 05:20 10/24/16 05:20 Cardiac Labs: Laboratory Tests 10/07/16 05:35 Digoxin 1.1 EKG: atrial flutter with 4:1 block - Physical Exam Constitutional: WDWN, healthy appearing, no apparent distress Eyes: PERRL Ears, Nose, Mouth, Throat: moist mucous membranes Cardiovascular: regular rate and rhythm, no murmurs, no rubs, systolic murmur ( soft, II/ GEORGES at most), No jugular vein distention Peripheral Pulses: 2+: dorsalis-pedis (R), dorsalis-pedis (L) Respiratory: clear to auscultate bilat, no crackles, no wheezes Gastrointestinal: normoactive bowel sounds Skin: no rashes, no edema Musculoskeletal: no muscular tenderness Neurologic: AAOx3, CN II-XII grossly intact Psychiatric: cooperative, interactive, following commands ICD10 Worksheet Patient Problems: Problems Problem Status Onset Atrial flutter Acute Pleural effusion, right Acute Hypoxemia Acute Recurrent right pleural effusion Acute
[2016-10-25 12:20] VITALS: BP 132/69; PULSE 115; TEMP 98.1; O2SAT 91
--- NOTE | 2016-10-25 14:18 | SOAPPROG ---
SOAP Progress Note Assessment/Plan: Assessment: 1) Metastatic carcinoma of unknown primary (suspect upper GI source) 2) Bilateral malignant pleural effusions. 3) S/P cycle #1 palliative FOLFOX (completed ) Plan: Overall feels well. He has not experienced any treatment related toxicity thus far. Mediport has been placed Right Pleurex catheter placed yesterday. Next FOLFOX due in [address] Morley of his discharge. He will be discharged today. Plan d/w patient. Questions answered. 10/21/16 07:19 10/22/16 12:51 10/24/16 07:59 10/25/16 14:12 Subjective: Feels well. Ready to go home. Right pleurex catheter placed yesterday. Objective: Vital Signs Temp Pulse Resp BP Pulse Ox 36.7 C 115 H 16 132/69 H 91 L 10/25/16 12:00 10/25/16 12:00 10/25/16 12:00 10/25/16 12:00 10/25/16 12:00 Laboratory Results 10/25/16 05:20 10/24/16 05:20 10/24/16 10/25/16 10/26/16 05:59 05:59 05:59 Intake Total 1937 1150 200 Output Total 907.00 645 300 Balance 1030.00 505 -100 PT 15.2 SEC (12.0-15.0) H 10/25/16 05:20 INR 1.20 (0.83-1.16) H 10/25/16 05:20 - Time Spent With Patient Time Spent With Patient: 15 minutes Physical Exam - Physical Exam General Appearance: alert, no apparent distress Neuro/Psych: alert, normal mood/affect ICD10 Worksheet Patient Problems: Problems Problem Status Onset Atrial flutter Acute Pleural effusion, right Acute Hypoxemia Acute Recurrent right pleural effusion Acute
--- NOTE | 2016-10-25 16:50 | PDIAF ---
- Diagnosis Code Status: Full Code - Medication Management Discharge Medications: Medications to Continue on Transfer Amlodipine Besylate [Norvasc] 5 mg PO HS 09/13/16 [Last Taken 09/30/16] Atorvastatin Calcium [Lipitor 20 mg (*)] 20 mg PO HS 09/13/16 [Last Taken ] C/E/Zn/Cu/OM3/DHA/EPA/LUT/ZEAX [Preservision Areds 2 Softgel] 1 each PO BID [Last Taken 10/01/16] Herbals/Supplements -Info Only 1 each PO DAILY 10/01/16 [Last Taken Unknown] [place]-3 Fatty Acids [Fish Oil 1000 mg (*)] 1,000 mg PO DAILY 10/01/16 [Last Taken 10/01/16] Diltiazem Cd [Cardizem ER 300 MG (*)] 300 mg PO DAILY #30 cap 10/25/16 [Last Taken Unknown] Enoxaparin [Lovenox 150mg (*)] 150 mg SC HS #5 syr 10/25/16 [Last Taken Unknown] Folic Acid [Folic Acid 1 MG (*)] 1 mg PO DAILY #30 tab 10/25/16 [Last Taken Unknown] Latanoprost 0.005% [Xalatan 0.005% (*)] 1 drops EACHEYE HS #1 opht.btl 10/25/16 [Last Taken Unknown] Warfarin Sodium 5 mg PO DAILY #30 tablet 10/25/16 [Last Taken Unknown] Discharge Medications: Refer to the Discharge Home Medication list for PRN reason. - Orders Services needed: Home Care, Registered Nurse Home Care Face to Face: I certify that this patient was under my care and that I had the required [id number] encounter meeting the encounter requirements on the discharge day. My findings support the fact that the patient is homebound as defined in CMS Chapter 7 Medicare Benefits Manual 30.1.1, The condition of the patient is such that there exists a normal inability to leave home and consequently, leaving home would require a considerable and taxing effort. - Follow Up Care Current Providers and Referrals: Jones Rivera DO [Primary Care Provider] - As per Instructions
--- NOTE | 2016-10-25 21:14 | GDS ---
[f rep st] DISCHARGE SUMMARY DISCHARGE DIAGNOSES: 1. Malignant right pleural effusion. 2. Metastatic adenocarcinoma of unknown source. Most likely pancreatic or upper gastrointestinal. 3. Atrial flutter. 4. Arpnp-zn-vahyaqk respiratory failure. HISTORY: This is a 76-year-old male who presented with shortness of breath. CONSULTATIONS: General surgery. Cardiology. Pulmonary. Oncology. Gastroenterology. PROCEDURES: 1. Thoracentesis. 2. CT scan of the chest showed no pulmonary embolism, some right lung pulmonary consolidation, locu lated fluid collection. 3. Chest tube placement. 4. Colonoscopy: Negative. 5. Pleur-evac placement. HOSPITAL COURSE: 1. Malignant pleural effusion. This was drained several times and a chest tube was also placed. D rainage did not decrease enough and, thus, PleurX catheter was placed on the day before discharge. Patient was taught on how to drain this. This will be followed by Oncology. 2. Metastatic adenocarcinoma of unknown primary. The patient did receive first dose of chemotherap y in the hospital and tolerated it well. 3. A flutter. The patient was initially was not rate controlled but became rate controlled in A fl utter with diltiazem and digoxin. Toward the end of his discharge, Cardiology was consulted who is contemplating cardioversion but would will like to see him outpatient. He will be anticoagulated wi th both Lovenox and Coumadin. We will follow up with the [facility] next week. FOLLOWUP INSTRUCTIONS: He is instructed to follow up with Cardiology as well as Oncology. Greater than 30 minutes were spent on discharge. /[id number]/MODL
== END 2016-10-25 15:26 | disposition home health service (06) | DRG 826 ==
LOC: F2W 11:25 → F1N 10-18 08:29
PROVIDERS: ADMIT Internal Medicine; ATTEND Internal Medicine
PROC: 0W993ZX Drainage of Right Pleural Cavity, Percutaneous Approach, Diagnostic (ICD-10-PCS; 2016-10-01)
PROC: 02HV33Z Insertion of Infusion Device into Superior Vena Cava, Percutaneous Approach (ICD-10-PCS; 2016-10-02)
PROC: 0W993ZX Drainage of Right Pleural Cavity, Percutaneous Approach, Diagnostic (ICD-10-PCS; 2016-10-04)
PROC: 0BBN4ZX Excision of Right Pleura, Percutaneous Endoscopic Approach, Diagnostic (ICD-10-PCS; principal; 2016-10-05 08:00)
PROC: 0BJ08ZZ Inspection of Tracheobronchial Tree, Via Natural or Artificial Opening Endoscopic (ICD-10-PCS; principal; 2016-10-05 08:00)
PROC: 0BDN4ZX Extraction of Right Pleura, Percutaneous Endoscopic Approach, Diagnostic (ICD-10-PCS; principal; 2016-10-05 08:00)
PROC: 0W9930Z Drainage of Right Pleural Cavity with Drainage Device, Percutaneous Approach (ICD-10-PCS; principal; 2016-10-05 08:00)
PROC: 0BDN4ZX Extraction of Right Pleura, Percutaneous Endoscopic Approach, Diagnostic (ICD-10-PCS; 2016-10-11)
PROC: 0W9940Z Drainage of Right Pleural Cavity with Drainage Device, Percutaneous Endoscopic Approach (ICD-10-PCS; 2016-10-11)
PROC: 0BBN4ZX Excision of Right Pleura, Percutaneous Endoscopic Approach, Diagnostic (ICD-10-PCS; 2016-10-11)
PROC: 0DJD8ZZ Inspection of Lower Intestinal Tract, Via Natural or Artificial Opening Endoscopic (ICD-10-PCS; 2016-10-12)
PROC: 0DB98ZX Excision of Duodenum, Via Natural or Artificial Opening Endoscopic, Diagnostic (ICD-10-PCS; 2016-10-12)
PROC: 0DB68ZX Excision of Stomach, Via Natural or Artificial Opening Endoscopic, Diagnostic (ICD-10-PCS; 2016-10-12)
PROC: 0DBN8ZX Excision of Sigmoid Colon, Via Natural or Artificial Opening Endoscopic, Diagnostic (ICD-10-PCS; 2016-10-13)
PROC: 3E03305 Introduction of Other Antineoplastic into Peripheral Vein, Percutaneous Approach (ICD-10-PCS; 2016-10-18)
PROC: 02HV33Z Insertion of Infusion Device into Superior Vena Cava, Percutaneous Approach (ICD-10-PCS; 2016-10-21)
PROC: 0JH60XZ Insertion of Tunneled Vascular Access Device into Chest Subcutaneous Tissue and Fascia, Open Approach (ICD-10-PCS; 2016-10-21)
DX: C80.1 Malignant (primary) neoplasm, unspecified (principal); J91.0 Malignant pleural effusion; J96.21 Acute and chronic respiratory failure with hypoxia; I48.92 Unspecified atrial flutter; C78.2 Secondary malignant neoplasm of pleura; C79.51 Secondary malignant neoplasm of bone; I10 Essential (primary) hypertension; D12.5 Benign neoplasm of sigmoid colon
CPT/HCPCS: 85520-90; 86301-90; 87449-90; 96365; 96366; 97116-GP; 97161-GP; 97165-GO; 97530-GO; 97530-GP; 97535-GO; C1751; C1788; G8978-GP-CI; G8979-GP-CI; G8980-GP-CI; G8987-GO-CJ; G8988-GO-CI; G8989-GO-CI; J0153; J0640; J0690; J1100; J1160; J1200; J1642; J1644; J1650; J2250; J2310; J2370; J2405; J2704; J3010; J9190; J9263; Q9967

== ENCOUNTER → 2016-10-31 | Outpatient (CLI) | payer OTHER | LOC: FIMAGING 11:14 | PROVIDERS: ATTEND Hospitalist | DX: R91.8 Other nonspecific abnormal finding of lung field (principal); Z97.8 Presence of other specified devices ==

== ENCOUNTER → 2016-12-03 | Outpatient (CLI) | payer OTHER | LOC: FIMAGING 09:38 | PROVIDERS: ATTEND Nurse Practitioner | DX: J90 Pleural effusion, not elsewhere classified (principal); J98.4 Other disorders of lung ==

== ENCOUNTER 2017-02-17 09:11 | Observation (INO) | payer OTHER ==
--- NOTE | 2017-02-17 09:30 | CPEKG ---
Heart Rate: 117 RR Interval: 513 QRSD Interval: 136 QT Interval: 368 QTC Interval: 514 QRS Paterson: -43 T Wave Paterson: 36 EKG Severity - ABNORMAL ECG - EKG Impression: ATRIAL FLUTTER, A-RATE 312 EKG Impression: RBBB AND LAFB Electronically Signed By: Federico Burks 17-Feb-2017 13:20:33
--- NOTE | 2017-02-17 10:01 | EDPHY ---
H & P Stated Complaint: Increasing SOB past 3 days jai w/activity Time Seen by Provider: 02/17/17 09:57 - Personal History Current Tetanus Diphtheria and Acellular Pertussis (TDAP): Yes - Medical/Surgical History Hx Asthma: No Hx Chronic Respiratory Disease: Yes Hx Diabetes: No Hx Cardiac Disease: Yes Hx Renal Disease: No Hx Cirrhosis: No Hx Alcoholism: No Hx HIV/AIDS: No Hx Splenectomy or Spleen Trauma: No Other PMH: HTN, macular degeneration, bl KNEE REPLACEMENT/PLEURAL EFFUSION - Social History Smoking Status: Former smoker Constitutional: Initial Vital Signs Temperature (C) 36.6 C 02/17/17 09:16 Heart Rate 91 02/17/17 09:16 Respiratory Rate 118 H 02/17/17 09:16 Blood Pressure 106/67 02/17/17 09:16 O2 Sat (%) 91 L 02/17/17 09:16 O2 Delivery Mode Nasal Cannula Allergies/Adverse Reactions: No Known Allergies Allergy (Verified 10/01/16 08:40) Home Medications: Medication Instructions Recorded Atorvastatin Calcium [Lipitor 20 20 mg PO 02/17/17 mg (*)] C/E/Zn/Cu/OM3/DHA/EPA/LUT/ZEAX 1 each PO BID 02/17/17 [Preservision Areds 2 Softgel] Diltiazem HCl [Matzim LA] 300 mg PO DAILY 02/17/17 Folic Acid [Folic Acid 1 MG (*)] 1 mg PO DAILY 02/17/17 Herbals/Supplements -Info Only 1 ea PO DAILY 02/17/17 Latanoprost 0.005% [Xalatan 0.005% 1 drops EACHEYE 02/17/17 (*)] [place]-3 Fatty Acids [Fish Oil 1000 1,000 mg PO DAILY 02/17/17 mg (*)] Warfarin Sodium [Coumadin 5MG (*)] 2.5 mg PO SUMOWEFRSA 02/17/17 Warfarin Sodium [Coumadin 5MG (*)] 5 mg PO TUTH 02/17/17 amLODIPine BESYLATE [Norvasc 5 mg 5 mg PO HS 02/17/17 (*)] Medical Decision Making - Diagnostics Imaging: Discussed imaging studies w/ derrick worker well service Radiologist, I viewed and interpreted images myself ED Course/Re-evaluation: CHIEF COMPLAINT: Shortness of breath HISTORY OF PRESENT ILLNESS: The patient is an anticoagulated 76 y/o male who complains of worsening shortness of breath for the past three days. He was admitted in August and September of this year for similar symptoms and was subsequently diagnosed with a malignant right pleural effusion of unknown origin. During his month-long admission in September he had a chest tube placed and was started on chemotherapy. They have still been unable to identify the source of his malignancy. He has had 8 rounds of chemotherapy under the care of Dr. Morley, oncology. He was given a break ak from the chemotherapy this week. His symptoms have been continually exacerbated with even mild exertion and are alleviated while lying flat or resting. He denies chest pain, fever, cough, abdominal pain, vomiting, recent illness or recent trauma. REVIEW OF SYSTEMS: A 10 point review of systems was performed and is negative with the exception of the elements mentioned in the history of present illness. PHYSICAL EXAM: HR 118, BP, 91% SpO2 on supplemental O2, RR. Temp noted General Appearance: Alert, well hydrated, appropriate, and non-toxic appearing. Head: Atraumatic without scalp tenderness or obvious injury Eyes: Pupils equal, round, reactive to light and accommodation, EOMI, no trauma , no injection. Nose: Atraumatic, no rhinorrhea, clear. Throat: Mucus membranes moist. Neck: Supple, nontender, no lymphadenopathy. Respiratory: Mid-right egophony with decreased breath sounds in all right lung sawyer. No retractions, no distress, no wheezes, and no accessory muscle use. Cardiovascular: Tachycardic rate and rhythm, no murmurs, rubs, or gallops. Good capillary refill all extremities. Gastrointestinal: Abdomen is soft, nontender, non-distended, no masses, no rebound, no guarding, no peritoneal signs. Musculoskeletal: Normal active ROM of all extremities, atraumatic. Neurological: Alert, appropriate, and interactive. Non-focal neuro exam. Skin: No rashes, good turgor, no nodules on palpation. Past medical history: Malignant right pleural effusion, atrial flutter Past surgical history: Thoracentesis, chest tube Family history: Denies Social history: at bedside, lives in [place], retired. Prior medical records reviewed, including discharge summary from Dr. Momo Sauceda on 10/25/16. DIAGNOSTICS/PROCEDURES/CRITICAL CARE TIME: Chest X-ray: Increased right lung consolidation and right pleural effusion EKG: The 12 lead EKG was interpreted by myself. He has atrial flutter with a rate of 117. This EKG is similar to a prior EKG from 10/23/16. See hard copy and /or "tracemaster" electronic copy for interpretation. DIFFERENTIAL DIAGNOSIS: The differential diagnosis for the patient's shortness of breath and hypoxemia included but was not limited to malignant pleural effusion, pneumonia, myocardial infarction, acute mountain sickness, high altitude pulmonary edema, congestive heart failure, and pulmonary embolus. MEDICAL DECISION MAKING: The patient is a 76 y/o male with a recent history of a malignant right pleural effusion, who presents with worsening shortness of breath over the last few months. He presented with similar symptoms in September and required a chest tube to drain the effusion. He has right midt egophony with decreased breath sounds in all right lung sawyer on exam. He is afebrile and tachycardic. Plan on labs, EKG, and chest x-ray. X-ray shows right pleural effusion. Patient will require admission for definitive treatment of this. Oncology paged for consult. Consulted with Dr. Castro, cardiology, who is on-call for Dr. Morley. He agrees with my plan for admission due to the patient's pleural effusion, hypoxemia, and elevated troponin with continued symptoms. Spoke with hospitalist service. Dr. Clement accepts admission. Reassessed patient and discussed laboratory and imaging findings. Patient is comfortable with plan for admission. - Data Points Laboratory Results: Laboratory Results 02/17/17 09:27 02/17/17 09:27 Medications Given: Atorvastatin Calcium (Lipitor) 20 mg PO [facility] Stop: 08/16/17 20:59 Last Admin: 02/17/17 20:14 Dose: 20 mg Latanoprost (Xalatan 0.005%) 1 drops EACHEYE HS [facility] Stop: 08/16/17 20:59 Last Admin: 02/17/17 20:14 Dose: 1 drop Methylprednisolone Sodium Succinate (Solu-Medrol) 125 mg IVP Q6HRS [facility] Stop: 08/16/17 17:59 Last Admin: 02/18/17 05:04 Dose: 125 mg Departure - Departure Disposition: [facility] Inpatient Acute Clinical Impression: Hypoxemia, Recurrent right pleural effusion, Elevated troponin Atrial flutter Qualifiers: Atrial flutter type: unspecified Qualified Code(s): I48.92 - Unspecified atrial flutter Condition: Fair Report Scribed for: Federico Burks Report Scribed by: Ashanti French Date of Report: 02/17/17 Time of Report: 10:07
[2017-02-17 10:07] LABS: ADD DIFF? YES; ADD MORPH? NO; ADD SCAN? NO; ATYPICAL LYMPHOCYTE FLAG 10 (0-99); FRAGMENT RBC FLAG 40 (0-99); HEMATOCRIT 37.1 % (40.0-51.0); HEMOGLOBIN 11.7 g/dL (13.7-17.5); LEFT SHIFT FLG 10 (0-99); LIPEMIA HEMOLYSIS FLAG 80 (0-99); MEAN CELL HEMOGLOBIN 27.9 pg (27.9-34.1); MEAN CELL HEMOGLOBIN CONCENTR. 31.5 g/dL (32.4-36.7); MEAN CELL VOLUME 88.5 fL (81.5-99.8); MEAN PLATELET VOLUME 10.7 fL (8.7-11.7); PLATELET CLUMPS FLAG 0 (0-99); PLATELET COUNT 311 10^3/uL (150-400); RED BLOOD CELL COUNT 4.19 10^6/uL (4.40-6.38)
[2017-02-17 10:15] LABS: INR 2.39 (0.83-1.16); PROTIME(PATIENT) 26.3 SEC (12.0-15.0)
[2017-02-17 10:16] LABS: APTT 48.7 SEC (23.0-38.0)
[2017-02-17 10:20] LABS: ANION GAP 10 mEq/L (8-16); CALCIUM 9.6 mg/dL (8.5-10.4); CARBON DIOXIDE 29 mEq/l (22-31); CHLORIDE 99 mEq/L (97-110); CREATININE 0.9 mg/dL (0.7-1.3); GLOMERULAR FILTRATION RATE > 60; GLUCOSE 180 mg/dL (70-100); MAGNESIUM 1.8 mg/dL (1.6-2.3); POTASSIUM 3.5 mEq/L (3.5-5.2); SODIUM 138 mEq/L (134-144)
[2017-02-17 10:32] LABS: TROPONIN I 0.046 ng/mL (0.000-0.034)
[2017-02-17 10:47] LABS: PLATELET ESTIMATE ADEQUATE (ADEQ)
[2017-02-17 10:48] LABS: HYPOCHROMIA 1+; POLYCHROMASIA 1+; SCHISTOCYTES 1+
[2017-02-17] MEDS ORDERED: ONDANSETRON DISINTEGRATING 4 MG TAB PO PRN (12:05)
[2017-02-17] MEDS ORDERED: oxyCODONE IR 5 MG TAB PO PRN (12:05)
[2017-02-17] MEDS ORDERED: ACETAMINOPHEN 325 MG TAB PO PRN (12:05)
[2017-02-17] MEDS ORDERED: TEMAZEPAM 15 MG CAP PO PRN (12:05)
[2017-02-17] MEDS ORDERED: ONDANSETRON 4 MG/2 ML VIAL IVP PRN (12:05)
[2017-02-17] MEDS ORDERED: IOPAMIDOL (ISOVUE 370) 100 ML BTL IV ONE ×2 (12:28→14:01)
--- NOTE | 2017-02-17 13:03 | GHP ---
[f rep st] HISTORY AND PHYSICAL DATE OF ADMISSION: 02/17/2017 CHIEF COMPLAINT: Shortness of breath. HISTORY OF PRESENT ILLNESS: This is a 76-year-old man with a known cancer, unknown primary, who has presented with pleural effusions in the past, who presents with about 3 days of shortness of breath . He has not had any chest pain. He notes that his heart rates have mostly been in the 90s. He do es have a history of atrial fibrillation as well. He has a history of a malignant pleural effusion. He has had 2 chest tubes as well as a PleurX cath eter. His last intervention for this was in September. He went home with a PleurX catheter, it was bar daniel putting out any fluid, he had that removed about a week later. He has not needed any recurrent thoracenteses since September. His last CT scan was about a month ago. He is told that he had either s ome loculated fluid around his lung which was small, or a thick rind around his lung. He presented with this malignant pleural effusion, unknown primary. There was initially some though t that this may be a mesothelioma. There is also some thought this may be a cholangiocarcinoma, [facility] diagnosis is unclear at this point. He is followed by Dr. Morley. PAST MEDICAL/SURGICAL HISTORY: 1. Cancer with unknown primary, as above. 2. History of atrial fibrillation, on anticoagulation, borderline rate controlled. 3. 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 4. Hypertension. 5. Glaucoma. 6. Macular degeneration. 7. Bilateral TKA. 8. Tonsillectomy. MEDICATIONS: Please see medication reconciliation. ALLERGIES: No known drug allergies. FAMILY HISTORY: Reviewed and noncontributory. SOCIAL HISTORY: He lives in [place]. He is retired IT. He smoked for about 10 years and he jh nk. He quit drinking in September. REVIEW OF SYSTEMS: A 10-point review of systems is conducted, and is negative except per HPI. PHYSICAL EXAM: VITAL SIGNS: Blood pressure 104/73, heart rate 93, respiration rate 16, saturating at 96% on room air. Temperature is 37.1. GENERAL: The patient is a pleasant man who is lying comf ortably in bed. No acute distress. HEENT: Shows him to be normocephalic, atraumatic. CARDIOVASCU LAR: Irregularly irregular. He is tachycardic. There are no murmurs, rubs, or gallops. PULMONARY : Shows diminished sounds in the right base. ABDOMEN: Soft, nontender, nondistended. SKIN: Show s no rash. : Shows no Joy. NEUROLOGIC: Shows him to be alert and oriented x3. He is moving all extremities. PSYCHIATRIC: Shows normal mood and affect. LABORATORIES: Hemoglobin is 11, INR is 2.3, D-dimer is 1.37. Basic metabolic panel is normal. Tro ponin is 0.046. DATA: 1. I discussed this with Dr. Castro as well as Dr. Burks. 2. I reviewed his chart including all his old imaging. 3. I personally reviewed and interpreted his ECG, this shows atrial flutter, he has a right bundle branch block. His QRS has widened since his most recent EKG, slightly. 4. Chest x-ray shows possible infiltrate versus effusion. IMPRESSION AND PLAN: A 76-year-old man who presents with worsening shortness of breath over the las t 3 days. 1. Worsening shortness of breath: History notable for malignant pleural effusion status post multi ple thoracenteses, chest tubes, as well as PleurX catheter which has been out for months. Chest x-r ay, inconclusive whether this is fluid versus infiltrate due to cancer. I have ordered a CT angio w hich will help assess whether or not he needs a repeat thoracentesis. If he has significant pleural effusion, I will give him vitamin K and set up a thoracentesis for tomorrow. If this is not an eff usion, he will need different management per Oncology. Would not reverse him at that point. He did have an elevated D-dimer, but he is therapeutically anticoagulated. 2. History of atrial fibrillation: He is borderline tachycardic. We will continue his medicines a nd see if this improves when we improve his respiratory status. He is therapeutically anticoagulate d. 3. Anemia: Stable and chronic. 4. Elevated troponin: Will cycle these. I suspect that this is demand. 5. Code status: I have empirically made him full code. He has asked that I request his advanced d irectives from his light air defense artillery crewmember, which I have done. If these are different, I will change this in the [facility] rt. /[id number]/MODL
[2017-02-17] MEDS: methylPREDNISolone SOD SUCC 125 MG/2 ML VIAL IVP SCH ×2 (17:47→23:54)
[2017-02-17] MEDS ORDERED: LATANOPROST 0.005% 2.5 ML OPHT DROPS EACHEYE SCH (21:00)
[2017-02-17] MEDS ORDERED: ATORVASTATIN CALCIUM 20 MG TAB PO SCH (21:00)
[2017-02-18] MEDS: methylPREDNISolone SOD SUCC 125 MG/2 ML VIAL IVP SCH ×2 (05:04→13:20)
[2017-02-18 05:17] LABS: % IMMATURE GRANULYOCYTES 0.6 % (0.0-1.1); ABSOLUTE IMMATURE GRANULOCYTES 0.02 10^3/uL (0.00-0.10); ADD DIFF? NO; ADD MORPH? NO; ADD SCAN? NO; ATYPICAL LYMPHOCYTE FLAG 0 (0-99); FRAGMENT RBC FLAG 40 (0-99); HEMATOCRIT 36.2 % (40.0-51.0); HEMOGLOBIN 11.3 g/dL (13.7-17.5); LEFT SHIFT FLG 0 (0-99); LIPEMIA HEMOLYSIS FLAG 80 (0-99); MEAN CELL HEMOGLOBIN CONCENTR. 31.2 g/dL (32.4-36.7); MEAN CELL VOLUME 86.6 fL (81.5-99.8); MEAN PLATELET VOLUME 9.8 fL (8.7-11.7); PLATELET CLUMPS FLAG 0 (0-99); PLATELET COUNT 296 10^3/uL (150-400); RED BLOOD CELL COUNT 4.18 10^6/uL (4.40-6.38); RED CELL DISTRIBUTION WIDTH 19.3 % (11.5-15.2)
[2017-02-18 05:28] LABS: INR 2.36 (0.83-1.16)
[2017-02-18 05:38] LABS: ANION GAP 7 mEq/L (8-16); CALCIUM 9.4 mg/dL (8.5-10.4); CARBON DIOXIDE 27 mEq/l (22-31); CHLORIDE 101 mEq/L (97-110); CREATININE 0.7 mg/dL (0.7-1.3); GLOMERULAR FILTRATION RATE > 60; GLUCOSE 173 mg/dL (70-100); POTASSIUM 3.9 mEq/L (3.5-5.2); SODIUM 135 mEq/L (134-144)
[2017-02-18] MEDS ORDERED: DILTIAZEM HCL 300 MG PO SCH (09:00)
[2017-02-18] MEDS ORDERED: DILTIAZEM CD 300 MG CAP PO SCH (09:00)
[2017-02-18] MEDS ORDERED: FOLIC ACID 1 MG TAB PO SCH (09:00)
--- NOTE | 2017-02-18 09:58 | HOSPPROG ---
Hospitalist Progress Note Assessment/Plan: 76 yo M w metastatic CA of uncertain primeray here w dyspnea, progressive disease on chest imaging CA: possible mesothelioma significant airspace disease slightly improved on steroids no sputum or fever to suggest pneumonia so will follow off abx oncology to see AF: in flutter here (ekg interp by me) continue dilt and warfarin + troponin: likely demand from rapid AF and hypoxemia proph: anticoagulated dispo: inpt Subjective: case d/w dr carson. ct w L sided progressive airspace disease ( interp by me) Objective: Vital Signs Temp Pulse Resp BP Pulse Ox 36.5 C 102 H 20 123/90 H 95 02/18/17 03:51 02/18/17 03:51 02/18/17 03:51 02/18/17 03:51 02/18/17 03:51 Laboratory Results 02/18/17 05:00 02/18/17 05:00 02/17/17 02/18/17 02/19/17 05:59 05:59 05:59 Intake Total 1050 Balance 1050 PT 26.0 SEC (12.0-15.0) H 02/18/17 05:00 INR 2.36 (0.83-1.16) H 02/18/17 05:00 - Physical Exam Constitutional: no apparent distress, chronically ill appearing Eyes: PERRL, anicteric sclera Ears, Nose, Mouth, Throat: moist mucous membranes, hearing normal Cardiovascular: no murmur, rub, or gallop, tachycardia Respiratory: no respiratory distress, other (crackles and decreased breath sounds in L lung) Gastrointestinal: normoactive bowel sounds, soft, non-tender abdomen Genitourinary: no bladder fullness, No beyer in urethra Skin: warm, normal color Musculoskeletal: full muscle strength, no muscle tenderness Neurologic: AAOx3, sensation intact bilaterally Psychiatric: interacting appropriately, not anxious ICD10 Worksheet Patient Problems: Problems Problem Status Onset Atrial flutter Acute Elevated troponin Acute Hypoxemia Acute Recurrent right pleural effusion Acute Hypoxemia Acute Pleural effusion, right Acute
--- NOTE | 2017-02-18 11:32 | GCON ---
[f rep st] CONSULTATION HEMATOLOGY/ONCOLOGY CONSULTATION REASON FOR CONSULTATION: Shortness of breath. RECOMMENDATIONS: 1. Switch chemotherapy, which can be all done as an outpatient. 2. Continue prednisone 40 mg a day and follow up in the clinic in 1-2 days. EXECUTIVE SUMMARY: The patient is a very pleasant, 76-year-old gentleman who initially presented in August 2016 with a right pleural effusion and shortness of breath. Thoracentesis removed 2 L and the cytology was negative. A VATS procedure with some decortication revealed diffuse thickening of the pleura. Initial biopsies were consistent with a mesothelioma. Pathology, however, was suggestive of a mucin positive malignant neoplasm with a slight tendency toward gland formation, was positive for cytokeratin CK7. It was very rarely positive for CK20 and S100. 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 The best possibilities were thought to be pancreas, GI, and biliary. He had a PET scan which showed no evidence of metastatic disease. He had a lytic disease in his 1st right rib. He also had some activity in the anterior right iliac crest. He then had genomic testing which favored, as I said, upper GI or pancreatic and/or hepatobiliary. So, he was started on FOLFOX chemotherapy. He has had a total of 8 cycles. He comes into the hospital now with increasing shortness of breath. A CT scan done here at [facility] reveals progressive pleural-parenchymal disease. He is noted to have on the scan lytic lesion including ribs and sternum. He also has increasing adenopathy. He improved overnight with some high-dose corticosteroids. He is now presenting for discussion. He is not dyspneic at rest. He has a mild anemia with a hemoglobin 11. His chemistries are normal, although liver functions were not ordered. PAST MEDICAL HISTORY: Remarkable for Legionnaires disease, hypertension, glaucoma, and macular degeneration. He has a history of a tonsillectomy and bilateral knee arthroplasty. SOCIAL HISTORY: He is a retired information technology person. He has a 10-25 year history of smoking. SOCIAL/FAMILY HISTORY: Unremarkable. He is to . They have no children. REVIEW OF SYSTEMS: Negative for any pain. His appetite is good. His performance status remains at about 80, mainly limited by shortness of breath. CLINICAL EXAMINATION: GENERAL: A well-developed gentleman looking his stated age. He has no scleral icterus. He has no cervical or supraclavicular adenopathy. He is dull to percussion on the right lung with decreased breath sounds. Left lung clear. CV: Regular. ABDOMEN: Free of hepatosplenomegaly or ascites. There are no abdominal masses. EXTREMITIES: There is no extremity edema or calf tenderness. NEUROLOGIC: Intact. ASSESSMENT: This is behaving more like a mesothelioma. He has had previous treatment with FOLFOX. If we treat him for mesothelioma, which is what this is clinically looks like, then the option for treatment would be to treat with a flat dose of pembrolizumab 200 mg given once every 2 weeks. He should have a restaging PET-CT scan. I have asked him to come into the office for evaluation tomorrow to get a PET ordered and also to have a teaching visit. The patient is in agreement with this plan. /[id number]/MODL MTDD
[2017-02-18 14:23] VITALS: BP 111/66; PULSE 115; RESP 20; TEMP 98.1; O2SAT 96
--- NOTE | 2017-02-18 17:12 | GDS ---
[f rep st] DISCHARGE SUMMARY DISCHARGE DIAGNOSES: 1. Progressive thoracic cancer felt likely to be mesothelioma. 2. Hypoxemic respiratory failure. 3. History of pleural effusion. HOSPITAL COURSE: Please see admission history and physical by Dr. Zeke Edwards. The patient pr esented with increased work of breathing. He had a CTA showing progressive airspace disease. No pu lmonary embolism. He was started on steroids with improvement in his respiratory status. He was se en by Dr. Castro. His primary oncologist is Dr. Morley. He felt this was consistent with progressi ve disease and he recommended continuing oral steroids and sending him home, which is done. Medicat ions otherwise remain unchanged. /[id number]/MODL
== END 2017-02-18 16:21 | disposition home or self-care (01) ==
LOC: F2W 12:46
PROVIDERS: ADMIT Internal Medicine; ATTEND Internal Medicine
CPT/HCPCS: 71020; 71275; 93005; G0378; J1642; Q9967

== ENCOUNTER → 2017-03-05 | Outpatient (CLI) | payer OTHER | LOC: FIMAGING 15:20 | PROVIDERS: ATTEND Physician Assistant | DX: C45.9 Mesothelioma, unspecified (principal) ==

== ENCOUNTER 2017-03-07 13:05 | Inpatient (IN) | payer OTHER ==
[2017-03-07] MEDS ORDERED: HYDROmorphONE/DILAUDID 1 MG/ML INJ IVP PRN (15:22)
[2017-03-07] MEDS ORDERED: ACETAMINOPHEN 325 MG TAB PO PRN (15:22)
[2017-03-07] MEDS ORDERED: ONDANSETRON 4 MG/2 ML VIAL IVP PRN (15:22)
[2017-03-07] MEDS ORDERED: PROMETHAZINE HCL 25 MG/ML INJ IVP PRN (15:22)
[2017-03-07] MEDS ORDERED: ONDANSETRON DISINTEGRATING 4 MG TAB PO PRN (15:22)
[2017-03-07] MEDS ORDERED: oxyCODONE IR 5 MG TAB PO PRN (15:22)
[2017-03-07] MEDS ORDERED: WARFARIN SODIUM 5 MG TAB PO SCH (15:30)
[2017-03-07] MEDS: NS 1,000 ML IV SCH (16:24)
[2017-03-07 16:42] LABS: ABSOLUTE IMMATURE GRANULOCYTES 0.22 10^3/uL (0.00-0.10); ABSOLUTE NRBC COUNT 0.05 10^3/uL (0-0.01); ADD DIFF? NO; ADD MORPH? NO; ADD SCAN? NO; ATYPICAL LYMPHOCYTE FLAG 10 (0-99); FRAGMENT RBC FLAG 20 (0-99); HEMATOCRIT 30.8 % (40.0-51.0); HEMOGLOBIN 9.5 g/dL (13.7-17.5); LEFT SHIFT FLG 10 (0-99); LIPEMIA HEMOLYSIS FLAG 80 (0-99); MEAN CELL HEMOGLOBIN 26.9 pg (27.9-34.1); MEAN CELL HEMOGLOBIN CONCENTR. 30.8 g/dL (32.4-36.7); MEAN CELL VOLUME 87.3 fL (81.5-99.8); MEAN PLATELET VOLUME 10.5 fL (8.7-11.7); NRBC-AUTO% 0.5 % (0.0-0.2); PLATELET CLUMPS FLAG 0 (0-99); PLATELET COUNT 248 10^3/uL (150-400); RED BLOOD CELL COUNT 3.53 10^6/uL (4.40-6.38); RED CELL DISTRIBUTION WIDTH 17.8 % (11.5-15.2)
[2017-03-07] MEDS: PIPERACILLIN/TAZO 3.375 GM/DEX 50 ML IV SCH ×2 (17:07→17:46)
[2017-03-07 17:08] LABS: INR 1.76 (0.83-1.16); PROTIME(PATIENT) 20.6 SEC (12.0-15.0)
[2017-03-07 17:09] LABS: APTT 47.9 SEC (23.0-38.0)
[2017-03-07 18:49] LABS: ALANINE AMINOTRANSFERASE 39 IU/L (21-72); ALBUMIN 2.4 g/dL (3.5-5.0); ALKALINE PHOSPHATASE 125 IU/L (38-126); ANION GAP 3 mEq/L (8-16); ASPARTATE AMINOTRANSFERASE 45 IU/L (17-59); BILIRUBIN,TOTAL 0.3 mg/dL (0.1-1.4); BILIRUBIN-CONJUGATED 0.1 mg/dL (0.0-0.5); BILIRUBIN-UNCONJUGATED 0.2 mg/dL (0.0-1.1); CALCIUM 9.2 mg/dL (8.5-10.4); CARBON DIOXIDE 33 mEq/l (22-31); CHLORIDE 93 mEq/L (97-110); CREATININE 0.7 mg/dL (0.7-1.3); GLOMERULAR FILTRATION RATE > 60; GLUCOSE 99 mg/dL (70-100); POTASSIUM 3.9 mEq/L (3.5-5.2); SODIUM 129 mEq/L (134-144); TOTAL PROTEIN 5.1 g/dL (6.3-8.2)
[2017-03-07] MEDS: PRESERVISION AREDS2 FORMULA EYE VIT 1 EACH PO SCH (20:19)
[2017-03-07] MEDS: ATORVASTATIN CALCIUM 20 MG TAB PO SCH (20:20)
[2017-03-07] MEDS: amLODIPine BESYLATE 5 MG TAB PO SCH (20:20)
--- NOTE | 2017-03-07 20:21 | GCON ---
[f rep st] CONSULTATION INITIAL ONCOLOGY VISIT PRIMARY ONCOLOGIST: Dr. Rj Castro REASON FOR VISIT: Evaluation and management for nonspecific chest cancer. HISTORY OF PRESENT ILLNESS: The patient is a 76-year-old gentleman who was diagnosed with a malignan cy in his chest in September 2016. Symptoms started in August when he developed a pleural effusion. He h ad a couple thoracenteses that were unremarkable and so he underwent a VATS procedure with decorticat ion and drainage. There was some initial concern that this might be a mesothelioma, but the final pa th showed a mucin positive malignant neoplasm with slight tendency to glandular formation. This is f elt to be metastatic. The best possible primaries were pancreas or upper GI. He had a staging PET s can that did not show any obvious primary, although he did have a metastasis in the anterior left 1st rib and some focal activities in the anterior right iliac crest. Most of the consolidations were th roughout the right lung related to the surgery. He had an upper and lower endoscopy which were unrem arkable. He underwent a second VATS pleurodesis and was discharged on PleurX catheter for while. Th en, was able to pull that due to minimal drainage. He was then treated with 8 cycles of FOLFOX chemo therapy but recently progressed. He is not sure he ever felt a whole lot better while on the chemoth erapy. He was admitted to the hospital at the end of January with shortness of breath. He seemed to get bett er with a steroid pulse and that was tapered off. He was started on pembrolizumab on 02/21/2017. He did not have any trouble with the infusion, but he has had some continued fatigue, dry cough and neftali rtness of breath. A noncontrast CT performed yesterday showed interval progression of pleural-based tumor compared to C T angiogram on the with compression of the right central bronchi and postobstructive consolidati on and pneumonia. The hilar and retrocrural lymphadenopathy appeared to be stable as well as the nod ularity along the posterior capsule of the right lobe of the liver. There is a small mild to moderat e left pleural effusion and increased soft tissue thickening over the right chest wall as well as inc reased small nodule just medial inferior to the right nipple. The lytic processes seem to be worse a s well. He was to followup today to review this, but he looked like he is having increasing problems with ervin athing and more fatigue. He is admitted to the hospital for possible postobstructive pneumonia. He was started on Levaquin last night. He has taken 2 doses. He denies any fever. He is not sure if carol spears has lost any weight because he has not been weighed recently, although the hospital's weight sugges ts he is down a couple kilograms. ALLERGIES: He has no known drug allergies. MEDICATIONS: Include levothyroxine, Ativan, diltiazem, atorvastatin, prednisone, amlodipine, warfari n, Latanoprost, folic acid, fish oil. He is not on prednisone. He had tapered that off. CHRONIC ILLNESSES: Include chest cancer as described in the HPI. He had Legionnaires disease in 197 0s. Hypertension, glaucoma, macular degeneration, atrial fibrillation. SOCIAL HISTORY: Includes tonsillectomy, bilateral knee arthroplasty. SOCIAL HISTORY: He is retired in [employer]. He has about a 80-xwjg-paqp history of smo luisito. He is currently not smoking. Minimal alcohol use. He is but no children. FAMILY HISTORY: Unremarkable. REVIEW OF SYSTEMS: 10-point review of systems performed. Pertinent positives per HPI, otherwise neg ative. PHYSICAL EXAMINATION: VITAL SIGNS: Temperature is 36.9, pulse is 82, blood pressure is 122/68. GEN ERAL: He is ill-appearing, but is in no distress. HEENT: He has a lesion over his right canine. I t is not particularly tender. It is kind of firm with surrounding soft area. No bleeding. Oral muc tariq is unremarkable. ROSA M: Reveals no peripheral lymphadenopathy. CHEST: He has a port on the le ft. He has some nodules palpable just medial of his right nipple, but no overlying skin lesions. MARGARITO NGS: Decreased in the right. CARDIAC: Regular. ABDOMEN: Soft, nontender. NEURO: Grossly intact . LABORATORY: He had labs 2 days ago. White count 11,000. Hemoglobin 10.7, platelet count 277,000. BUN and creatinine are 25 and 0.7. Albumin is 2.8. CEA jumped up to 1000 from 650. At the time of the pembrolizumab, it was 400 in January. IMPRESSION: 1. Compression of right central bronchi and post obstructive consolidation/pneumonia. 2. Aggressive chest malignancy. Specific primary unclear. Status post second-line therapy with pem brolizumab 02/21/2017. 3. Lesion over right canine of unclear etiology. It has not been biopsied. PLAN: Definitely, there has been some progression in his CT scan compared to the previous. I cannot entirely rule out pseudo-progression from the pembrolizumab, but it also could be an aggressive bennie gnancy. He does not have a fever currently, but has been on antibiotics the last 24 hours. Since it is on the right side, it might be best to change to coverage that has more anaerobic coverage, parti cularly since he has the mouth lesion. If he gets much better over the next 24 hours, then he can go home and follow up with radiation for palliative chest radiation. I will call at Radiation Oncology tonight. I think overall to help open up his lungs that will be probably the best therapy. We will follow along with you. At this point, there does not appear to be any acute side effects related to the pembrolizumab. /[id number]/MODL
[2017-03-07] MEDS: LATANOPROST 0.005% 2.5 ML OPHT DROPS EACHEYE SCH (20:49)
[2017-03-07] MEDS ORDERED: predniSONE 20 MG TAB PO SCH (21:00)
[2017-03-07 21:12] LABS: COLOR YELLOW; LEUKOCYTE ESTERASE,URINE NEGATIVE (NEGATIVE); NITRITE,URINE NEGATIVE (NEGATIVE)
--- NOTE | 2017-03-07 22:46 | GHP ---
[f rep st] HISTORY AND PHYSICAL DATE OF ADMISSION: 03/07/2017 CHIEF COMPLAINT: Shortness of breath and fatigue. HISTORY: This is a 76-year-old man who has a past medical history of chest malignancy with associate d pleural effusion and pleural-based tumors from what sounds like an unknown primary, who presents wh o is presenting with worsening shortness of breath, fatigue, and possible associated pneumonia. He h as had a fairly complicated oncologic history with the initial diagnosis being concerning for mesothe lioma and then further workup suspecting a metastatic process possibly from a GI source. Per the pat ient, it has ultimately been thought to be either pleural lymphatic or bone originally. He has under gone 8 cycles of FOLFOX chemotherapy with subsequent progression and has also undergone both thoracen tesis and VATS pleurodesis, and even was discharged with a PleurX catheter for his recurrent pleural effusions. Most recently, he has been started pembrolizumab and again presents today with worsening shortness of breath, significant fatigue, and cough. He has been followed by Oncology and was recent ly felt to be dealing with a postobstructive pneumonia and has been started on Levaquin, of which he has completed 2 doses. He notes that despite being started on antibiotics he continued to feel worse . He denies fevers or chills. He has had a productive cough, but notes that it always looks clear. PAST MEDICAL HISTORY: 1. Chest malignancy. 2. Chronic hypoxic respiratory failure with a baseline 2-3 L oxygen requirement. 3. History of AFib on chronic anticoagulation. 4. History of hypertension. 5. Glaucoma. 6. Macular degeneration. 7. Bilateral TKA. 8. Tonsillectomy. FAMILY HISTORY: This was reviewed and is noncontributory. SOCIAL HISTORY: The patient is . He lives in [place]. He is retired from the [employer]. He has a remote smoking history of about 10 years and previously used to drink, but has also quit dri nking. His oncologist is Hector Morley MD. REVIEW OF SYSTEMS: A 10-point review of systems was obtained. Negative, except as per HPI. MEDICATIONS: 1. Prednisone. 2. Levofloxacin. 3. Amlodipine. 4. Warfarin. 5. [place]-3 fatty acids. 6. Latanoprost. 7. Ativan. 8. Folic acid. 9. Diltiazem. 10. PreserVision. 11. Atorvastatin. ALLERGIES: No known drug allergies. PHYSICAL EXAM: VITAL SIGNS: Blood pressure 127/72, heart rate 88, respiratory rate 18, O2 saturatio ns 94% on 4 L, temperature is 36.8. GENERAL APPEARANCE: This is a well-developed, well-nourished devendra n. He is chronically ill appearing. He is in mild distress. HEENT: Eyes: Anicteric. Oropharynx: Clear, dry mucous membranes. CARDIOVASCULAR: Regular rate and rhythm, no MRG. PULMONARY: Bilate ral diffuse rhonchi with scattered wheezes. Increased work of breathing. ABDOMEN: Soft, nontender, nondistended. EXTREMITIES: Trace bilateral lower extremity edema. SKIN: Warm, dry, well perfused . NEUROPSYCHIATRIC: Oriented, appropriate, pleasant. CLINICAL DATA: Labs reviewed and significant for white blood cell count of 10.8, hematocrit of 30.8, platelets of 248. Coagulation studies with an INR of 1.76. Chemistry is notable for a sodium of 12 9, bicarb of 33. UA is unremarkable. CT scan from [facility] performed yesterday is significant for an interval progression of pleural-based val or in the right hemithorax, compression of right central bronchi and postobstructive pneumonia. Ther e is stable hilar and retrocrural lymphadenopathy. There is a new vjyw-yy-bhoiipon left pleural effu jennifer with adjacent atelectasis. There is a lytic process at the left 6th rib and questionable left 7 th and 8th ribs and other stable small sclerotic lesions. Chest x-ray, personally reviewed and interpreted from 03/05/2017, showing increased patchy consolidat ion in the right lung and a small left pleural effusion. ASSESSMENT AND PLAN: This is a 76-year-old man with a past medical history of chest malignancy, now on second-line chemotherapy, presenting with tkrkw-on-vklqgxx respiratory failure in the setting of c ompression of right central bronchi and postobstructive pneumonia. 1. Laaxy-kl-aqzgofq hypoxic, hypercarbic respiratory failure. Bicarb is elevated at 33 and the tootie ent is still short of breath and labored in his breathing on 4 L with a baseline of 2. Presume this is secondary to both postobstructive pneumonia as next as well as compression of his right central br onchi and overall progression of his aggressive pulmonary process. Oncology has been consulted and c are has been discussed with them. Will add bronchodilators and aggressive pulmonary toilet. 2. Postobstructive pneumonia. This has been worsening despite having been initiated on levofloxacin recently as an outpatient. High risk for anaerobic/gram-negative organisms, and we will start patie nt on IV Zosyn. It is certainly possible that the majority of his symptoms are not in fact related t o the postobstructive process, but rather to his primary lung malignancy. So, if there is not much i mprovement noted on antibiotics, Oncology does have plans to possibly have the patient follow up with palliative chest radiation. 3. Aggressive chest malignancy. Again this has been a little bit difficult to pin down in terms of a primary. However, clearly quite an aggressive tumor. He does have associated lymph and bone invol vement. CT scan shows clear progression. He has recently been started on pembrolizumab and Dr. Nick holland did caution that there is a possibility that this could be related to pseudoprogression. However, again, given worsening on imaging, it certainly could just be progression of his disease. Oncology i s involved and will be following. 4. Hyponatremia. Suspect this is a hypovolemic hyponatremia. The patient does appear somewhat dry on exam. I will check a urine sodium and osmolality and provide gentle IV fluids and recheck in the morning. He does have a risk for syndrome of inappropriate antidiuretic hormone secretion as well, o bviously, given his pulmonary process. 5. Anemia. This is stable in the setting of cancer and chemotherapy. Will trend while inhouse. 6. Atrial fibrillation. The patient is rate controlled and on exam sounded to be in sinus rhythm. His INR is subtherapeutic at this point. Will ask for Pharmacy to dose Coumadin while inhouse. DISPOSITION: Inpatient status. Suspect he will need greater than a 48-hour stay for evaluation and management of above, given multiple active comorbidities and complex decision making. The patient is new to my care. Care plan was reviewed with Dr. Alanis and the ER physician. Old simone rds were reviewed and summarized as per HPI and past medical history. CODE STATUS: The patient does have a living will on file in which he states that he would like his s [facility] decision-maker to make all decisions. This is Re Navarrete. He is a full code. /[id number]/MODL
[2017-03-08] MEDS: PIPERACILLIN/TAZO 3.375 GM/DEX 50 ML IV SCH ×5 (00:25→23:46)
[2017-03-08] MEDS: NS 1,000 ML IV SCH ×2 (02:37→17:35)
[2017-03-08 04:42] LABS: % IMMATURE GRANULYOCYTES 2.8 % (0.0-1.1); ABSOLUTE NRBC COUNT 0.03 10^3/uL (0-0.01); ADD DIFF? NO; ADD MORPH? NO; ADD SCAN? NO; ATYPICAL LYMPHOCYTE FLAG 0 (0-99); FRAGMENT RBC FLAG 20 (0-99); HEMATOCRIT 30.6 % (40.0-51.0); HEMOGLOBIN 9.2 g/dL (13.7-17.5); LEFT SHIFT FLG 10 (0-99); LIPEMIA HEMOLYSIS FLAG 80 (0-99); MEAN CELL HEMOGLOBIN 26.4 pg (27.9-34.1); MEAN CELL HEMOGLOBIN CONCENTR. 30.1 g/dL (32.4-36.7); MEAN CELL VOLUME 87.9 fL (81.5-99.8); MEAN PLATELET VOLUME 10.4 fL (8.7-11.7); NRBC-AUTO% 0.3 % (0.0-0.2); PLATELET CLUMPS FLAG 0 (0-99); PLATELET COUNT 245 10^3/uL (150-400); RED BLOOD CELL COUNT 3.48 10^6/uL (4.40-6.38); RED CELL DISTRIBUTION WIDTH 17.8 % (11.5-15.2)
[2017-03-08 05:06] LABS: ANION GAP 7 mEq/L (8-16); CALCIUM 8.7 mg/dL (8.5-10.4); CARBON DIOXIDE 30 mEq/l (22-31); CHLORIDE 97 mEq/L (97-110); CREATININE 0.6 mg/dL (0.7-1.3); GLOMERULAR FILTRATION RATE > 60; GLUCOSE 90 mg/dL (70-100); POTASSIUM 3.9 mEq/L (3.5-5.2); SODIUM 134 mEq/L (134-144)
--- NOTE | 2017-03-08 06:34 | SOAPPROG ---
SOAP Progress Note Assessment/Plan: Assessment/Plan: 76 yo man w metastatic adenoca of unknown primary admitted w increasing SOB/ fatigue; outpt noncon CT suugests mild progression and postobx PNA on R 1. postobx PNA - abx have been broadened pending CXR today breathing about the same on 4L O2 Dr Alanis has already discussed palliative XRT to lung w Dr Pratt NO fevers since admission 2. adenoca of lung - assume metastatic from GI primary extensive workup s/p FOLFOX and initiated on 2nd line pembrolizumab on 02/[address] imaging may be pseudoprogression giving timing of scans s/p VATS x 2; pt had previous pleurex 3. Aib - on chronic AC 03/08/17 06:29 03/08/17 06:30 03/08/17 06:34 Subjective: No acute events breathing about the same denies fevers/chills denies new pain Objective: Vital Signs Temp Pulse Resp BP Pulse Ox 36.5 C 118 H 20 131/71 H 94 03/08/17 04:14 03/08/17 04:14 03/08/17 04:14 03/08/17 04:14 03/08/17 04:14 Laboratory Results 03/08/17 04:25 03/08/17 04:25 03/07/17 03/08/17 03/09/17 05:59 05:59 05:59 Intake Total 75 Output Total 500 Balance -425 PT 20.6 SEC (12.0-15.0) H 03/07/17 16:30 INR 1.76 (0.83-1.16) H 03/07/17 16:30 gen - elderly gentleman, NAD HEENT - anicteric CV - irregularlt irregular Resp - occasional rhonchi RUL coarse BS throughout rest of lungs today Abd - soft, NT Ext - mild bilateral edema ICD10 Worksheet Patient Problems: Problems Problem Status Onset Atrial flutter Acute Elevated troponin Acute Hypoxemia Acute Hypoxemia Acute Pleural effusion, right Acute Recurrent right pleural effusion Acute
[2017-03-08] MEDS: PRESERVISION AREDS2 FORMULA EYE VIT 1 EACH PO SCH ×2 (08:38→20:09)
[2017-03-08] MEDS: OMEGA-3 FATTY ACIDS 1,000 MG CAP PO SCH (08:38)
[2017-03-08] MEDS: FOLIC ACID 1 MG TAB PO SCH (08:38)
[2017-03-08] MEDS: ENOXAPARIN 40 MG/0.4 ML SYR SC SCH (08:44)
[2017-03-08] MEDS ORDERED: DILTIAZEM CD 300 MG CAP PO SCH (09:00)
[2017-03-08] MEDS ORDERED: DILTIAZEM HCL 300 MG PO SCH (09:00)
[2017-03-08] MEDS ORDERED: DILTIAZEM 30 MG TAB PO ONE (10:02)
--- NOTE | 2017-03-08 10:05 | HOSPPROG ---
Hospitalist Progress Note Assessment/Plan: 76 yo male with aggressive chest malignancy with unknown primary, returns to hospital with increasing shortness of breath and concern for post-obstructive pneumonia not responding to Levaquin. Acute / chronic hypoxemic respiratory failure - On 4 LPM from 2 LPM at baseline. Repeat CXR this am shows complete opacification of right lung, ? worsening effusion. -plan for thoracentesis for therapeutic purposes Post-obstructive PNA - planning for palliative radiation for bronchus obstruction. -cont Zosyn -will call radiation oncology today given worsening condition Aggressive chest malignancy - ?pleural based vs bone or GI primary. S/P FOLFOX , now on 2nd line pembrolizumab as of 02/21. Had pleurex catheter in past and is s/p VATS x2. Case discussed with Dr. Gonzalo Mei fib with RVR - poor rate control. -increase dilt to max, 360 mg daily -consider addition of metoprolol if still poor rate control and BP tolerates , versus digoxin -INR sub-therapeutic, pharmacy to dose coumadin Anemia - Likely 2/2 chemo, no transfusion requirements today Hyponatremia - likely hypovolemic, low urine Na. Resolved with NS. Monitor. Dispo - Pt wishes to be DNR, ordered. Will also place palliative care consult. Subjective: Pt is tired, breathing is the same. No CP. No fevers. Objective: Vital Signs Temp Pulse Resp BP Pulse Ox 36.5 C 119 H 18 113/67 96 03/08/17 08:47 03/08/17 08:47 03/08/17 08:47 03/08/17 08:47 03/08/17 08:47 Laboratory Results 03/08/17 04:25 03/08/17 04:25 03/07/17 03/08/17 03/09/17 05:59 05:59 05:59 Intake Total 1522 Output Total 500 Balance 1022 PT 20.6 SEC (12.0-15.0) H 03/07/17 16:30 INR 1.76 (0.83-1.16) H 03/07/17 16:30 - Physical Exam Constitutional: chronically ill appearing Eyes: PERRL Ears, Nose, Mouth, Throat: moist mucous membranes Cardiovascular: irregularly irregular, tachycardia Respiratory: other (increased WOB, decreased air exchange on right) Gastrointestinal: normoactive bowel sounds, soft, non-tender abdomen Skin: warm Musculoskeletal: generalized weakness Neurologic: AAOx3 Psychiatric: interacting appropriately ICD10 Worksheet Patient Problems: Problems Problem Status Onset Atrial flutter Acute Elevated troponin Acute Hypoxemia Acute Hypoxemia Acute Pleural effusion, right Acute Recurrent right pleural effusion Acute
--- NOTE | 2017-03-08 11:00 | CPEKG ---
Heart Rate: 116 RR Interval: 517 QRSD Interval: 98 QT Interval: 348 QTC Interval: 484 QRS [place]: -33 T Wave [place]: 35 EKG Severity - ABNORMAL ECG - EKG Impression: ATRIAL FLUTTER, A-RATE 306 EKG Impression: LEFT AXIS DEVIATION EKG Impression: RBBB WAS NOTED ON PRIOR ECG. SIMILAR RHYTHM (FLUTTER) Electronically Signed By: Rj Nair 09-Mar-2017 12:04:31
[2017-03-08 11:06] LABS: INR 1.81 (0.83-1.16); PROTIME(PATIENT) 21.1 SEC (12.0-15.0)
[2017-03-08 12:42] LABS: LACTATE DEHYDROGENASE 1202 IU/L (313-618)
--- NOTE | 2017-03-08 17:14 | ASMTCMCOM ---
CM Note CM Note Notes: Pt has malignancy in chest with no obvious primary per H&P. Pt had thoracentesis today. Pt may get a pleurex drain and will need HC RN if he does. C/M to follow. Date Signed: 03/08/2017 05:14 PM Electronically Signed By:Ana Shaw LCSW
[2017-03-08] MEDS: amLODIPine BESYLATE 5 MG TAB PO SCH (20:09)
[2017-03-08] MEDS: ATORVASTATIN CALCIUM 20 MG TAB PO SCH (20:09)
[2017-03-08] MEDS: LATANOPROST 0.005% 2.5 ML OPHT DROPS EACHEYE SCH (20:10)
[2017-03-08] MEDS: ALBUTEROL 3 ML DEYVIAL IH PRN (20:37)
[2017-03-08] MEDS: LORazepam 1 MG TAB PO PRN (21:13)
[2017-03-09] MEDS: NS 1,000 ML IV SCH (05:06)
[2017-03-09] MEDS: PIPERACILLIN/TAZO 3.375 GM/DEX 50 ML IV SCH ×4 (05:07→23:56)
[2017-03-09 06:02] LABS: INR 1.85 (0.83-1.16); PROTIME(PATIENT) 21.4 SEC (12.0-15.0)
[2017-03-09] MEDS: DILTIAZEM CD 180 MG CAP PO SCH (07:47)
[2017-03-09] MEDS: OMEGA-3 FATTY ACIDS 1,000 MG CAP PO SCH (07:47)
[2017-03-09] MEDS: PRESERVISION AREDS2 FORMULA EYE VIT 1 EACH PO SCH ×2 (07:47→20:00)
[2017-03-09] MEDS: FOLIC ACID 1 MG TAB PO SCH (07:47)
--- NOTE | 2017-03-09 10:34 | SOAPPROG ---
SOAP Progress Note Assessment/Plan: Assessment/Plan: 76 yo man w metastatic adenoca of unknown primary admitted w increasing SOB/ fatigue; outpt noncon CT suggests mild progression and postobx PNA on R 1. postobx PNA - abx have been broadened CXR yesterday w complete opacification of R lung and pleural effusion on left s/po thoracentesis yesterday w some improvement in breathing initiating XRT to R mainstem today in hopes of opening up R lung on 3L O2 NO fevers since admission on abx 2. adenoca of lung - assume metastatic from GI primary extensive workup seems to be progressive s/p FOLFOX and initiated on 2nd line pembrolizumab on 02/[address] imaging may be pseudoprogression giving timing of scans but worried dz is worsening s/p VATS x 2; pt had previous pleurex 3. Aib - on chronic AC 03/09/17 10:33 Subjective: Pt not seen today just left for XRT Objective: Vital Signs Temp Pulse Resp BP Pulse Ox 37 C 109 H 18 111/67 91 L 03/09/17 02:56 03/09/17 02:56 03/09/17 02:56 03/09/17 02:56 03/09/17 02:56 Microbiology 03/08/17 11:49 Gram Stain - Final Thoracic Fluid - Aspirate Laboratory Results 03/08/17 04:25 03/08/17 04:25 03/08/17 03/09/17 03/10/17 05:59 05:59 05:59 Intake Total 1522 2578 Output Total 500 Balance 1022 2578 PT 21.4 SEC (12.0-15.0) H 03/09/17 05:05 INR 1.85 (0.83-1.16) H 03/09/17 05:05 Not examined today ICD10 Worksheet Patient Problems: Problems Problem Status Onset Atrial flutter Acute Elevated troponin Acute Hypoxemia Acute Hypoxemia Acute Pleural effusion, right Acute Recurrent right pleural effusion Acute
[2017-03-09] MEDS: ENOXAPARIN 40 MG/0.4 ML SYR SC SCH (11:08)
[2017-03-09] MEDS: ALBUTEROL 3 ML DEYVIAL IH PRN ×2 (11:38→19:52)
[2017-03-09] MEDS ORDERED: SODIUM CL NASAL 45 ML BTL EACHNARE PRN (12:07)
[2017-03-09] MEDS ORDERED: CANN-EASE 2 GM TUBE TP PRN (12:07)
--- NOTE | 2017-03-09 15:59 | HOSPPROG ---
Hospitalist Progress Note Assessment/Plan: 76 yo male with aggressive chest malignancy with unknown primary, returns to hospital with increasing shortness of breath and concern for post-obstructive pneumonia not responding to Levaquin. Acute / chronic hypoxemic respiratory failure - On 2 LPM at baseline, now on 3 LPM from 4 LPM on arrival. A bit of improvement after thoracentesis, 800 cc's off left side 03/08, right side without drainable fluid, just necrotic / atelectatic lung, which is completely opacified on CXR. -cont O2, atbx -if requires recurring thoracentesis, consider replacing pleurex -radiation today to hopefully open up right lung Post-obstructive PNA - palliative radiation today for right bronchus obstruction. -cont Zosyn Aggressive chest malignancy - ?pleural based vs bone or GI primary. S/P FOLFOX , now on 2nd line pembrolizumab as of 02/21. Had pleurex catheter in past and is s/p VATS x2. Case discussed with Dr. Sánchez A fib with RVR - rate control improved with increased diltiazem dose, now maxed at 360 daily -consider addition of metoprolol if still poor rate control and BP tolerates , versus digoxin -INR sub-therapeutic, pharmacy dosing coumadin Anemia - Likely 2/2 chemo, no transfusion requirements today Hyponatremia - likely hypovolemic, low urine Na. Resolved with NS. Monitor. Code status - DNR. Palliative care consult planned. Dispo - cont inpt Subjective: Pt feels a little better after thora and notes relief from nebs. No fevers. Cough is the same. Still SOB. Denies CP. He is very weak. Objective: Vital Signs Temp Pulse Resp BP Pulse Ox 36.6 C 95 16 118/69 92 03/09/17 10:54 03/09/17 11:40 03/09/17 11:40 03/09/17 10:54 03/09/17 11:40 Microbiology 03/08/17 11:49 Gram Stain - Final Thoracic Fluid - Aspirate Laboratory Results 03/08/17 04:25 03/08/17 04:25 03/08/17 03/09/17 03/10/17 05:59 05:59 05:59 Intake Total 1522 2578 Output Total 500 Balance 1022 2578 PT 21.4 SEC (12.0-15.0) H 03/09/17 05:05 INR 1.85 (0.83-1.16) H 03/09/17 05:05 - Physical Exam Constitutional: no apparent distress Eyes: PERRL Ears, Nose, Mouth, Throat: moist mucous membranes Cardiovascular: irregularly irregular, tachycardia Respiratory: no respiratory distress, other (diminished on right, clear on left) Gastrointestinal: normoactive bowel sounds, soft, non-tender abdomen Skin: warm Musculoskeletal: generalized weakness Neurologic: AAOx3 Psychiatric: interacting appropriately ICD10 Worksheet Patient Problems: Problems Problem Status Onset Atrial flutter Acute Elevated troponin Acute Hypoxemia Acute Hypoxemia Acute Pleural effusion, right Acute Recurrent right pleural effusion Acute
[2017-03-09] MEDS ORDERED: WARFARIN SODIUM 2.5 MG TAB PO SCH (16:00)
[2017-03-09] MEDS: ATORVASTATIN CALCIUM 20 MG TAB PO SCH (20:00)
[2017-03-09] MEDS: amLODIPine BESYLATE 5 MG TAB PO SCH (20:00)
[2017-03-09] MEDS: LATANOPROST 0.005% 2.5 ML OPHT DROPS EACHEYE SCH (20:02)
[2017-03-10 03:12] LABS: INR 2.03 (0.83-1.16); PROTIME(PATIENT) 23.1 SEC (12.0-15.0)
[2017-03-10] MEDS: NS 1,000 ML IV SCH (05:20)
[2017-03-10] MEDS: PIPERACILLIN/TAZO 3.375 GM/DEX 50 ML IV SCH ×4 (05:20→23:31)
[2017-03-10] MEDS: FOLIC ACID 1 MG TAB PO SCH (09:19)
[2017-03-10] MEDS: PRESERVISION AREDS2 FORMULA EYE VIT 1 EACH PO SCH ×2 (09:19→21:05)
[2017-03-10] MEDS: DILTIAZEM CD 180 MG CAP PO SCH (09:19)
[2017-03-10] MEDS: OMEGA-3 FATTY ACIDS 1,000 MG CAP PO SCH (09:19)
--- NOTE | 2017-03-10 09:29 | SOAPPROG ---
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 This will likely take several days to be effective. Appreciate Radiation Oncology assistance. He continues on Zosyn given possible component of post obstructive PNA. Goals of care reviewed with patient and . He confirms his wish for DNR status should his condition worsen. He is due for Pembrolizumab this Friday. This will likely be delayed with plan to resume as outpatient once he is discharged. Plan d/w patient and . Their questions were answered. 03/10/17 09:22 Subjective: Denies pain or dyspnea at rest. Still with significant FOSTER. at bedside. Objective: Vital Signs Temp Pulse Resp BP Pulse Ox 37 C 120 H 20 105/75 92 03/10/17 08:40 03/10/17 09:19 03/10/17 08:40 03/10/17 09:19 03/10/17 08:40 Microbiology 03/08/17 11:49 Gram Stain - Final Thoracic Fluid - Aspirate Laboratory Results 03/08/17 04:25 03/08/17 04:25 03/09/17 03/10/17 03/11/17 05:59 05:59 05:59 Intake Total 2578 2395 Output Total 1 Balance 2578 2395 -1 PT 23.1 SEC (12.0-15.0) H 03/10/17 02:48 INR 2.03 (0.83-1.16) H 03/10/17 02:48 - Time Spent With Patient Time Spent With Patient: 25 minutes Physical Exam - Physical Exam General Appearance: alert EENT: PERRL/EOMI Respiratory: other (Decreased breath sounds entire Right Hemithorax.) Abdomen: non-tender, soft Skin: normal color Neuro/Psych: alert, normal mood/affect ICD10 Worksheet Patient Problems: Problems Problem Status Onset Atrial flutter Acute Elevated troponin Acute Hypoxemia Acute Hypoxemia Acute Pleural effusion, right Acute Recurrent right pleural effusion Acute
--- NOTE | 2017-03-10 11:23 | HOSPPROG ---
Hospitalist Progress Note Assessment/Plan: 76 yo male with aggressive chest malignancy with unknown primary, returns to hospital with increasing shortness of breath and concern for post-obstructive pneumonia not responding to Levaquin. Acute / chronic hypoxemic respiratory failure - On 2 LPM at baseline, now 4 LPM. A bit of improvement after thoracentesis, 800 cc's off left side 03/08, right side without drainable fluid, just necrotic / atelectatic lung, which is completely opacified on CXR. -cont O2, atbx -if requires recurring thoracentesis, consider replacing pleurex -continue radiation, tx 08/02 today Post-obstructive PNA - palliative radiation today for right bronchus obstruction. -cont Zosyn, check labs in am Aggressive chest malignancy - ?pleural based vs bone or GI primary. S/P FOLFOX , now on 2nd line pembrolizumab as of 02/21. Had pleurex catheter in past and is s/p VATS x2. Case discussed with Oncology A fib with RVR - rate control improved with increased diltiazem dose, now maxed at 360 daily -consider addition of metoprolol if still poor rate control and BP tolerates , versus digoxin -INR now therapeutic, pharmacy dosing coumadin Anemia - Likely 2/2 chemo, no transfusion requirements today Hyponatremia - likely hypovolemic, low urine Na. Resolved with NS. Monitor. Code status - DNR. Palliative care consult planned. Dispo - cont inpt Subjective: Pt feels about the same. Still weak with SOB, worse with activity. Comfortable at rest. Tolerating radiation. No fevers. Objective: Vital Signs Temp Pulse Resp BP Pulse Ox 37 C 120 H 20 105/75 92 03/10/17 08:40 03/10/17 09:19 03/10/17 08:40 03/10/17 09:19 03/10/17 08:40 Microbiology 03/08/17 11:49 Gram Stain - Final Thoracic Fluid - Aspirate Laboratory Results 03/08/17 04:25 03/08/17 04:25 03/09/17 03/10/17 03/11/17 05:59 05:59 05:59 Intake Total 2578 2395 Output Total 1 Balance 2578 2395 -1 PT 23.1 SEC (12.0-15.0) H 03/10/17 02:48 INR 2.03 (0.83-1.16) H 03/10/17 02:48 - Physical Exam Constitutional: no apparent distress Eyes: PERRL Ears, Nose, Mouth, Throat: moist mucous membranes Cardiovascular: regular rate and rhythym Respiratory: no respiratory distress, other (decreased air exchange on right, clear on left) Gastrointestinal: normoactive bowel sounds, soft, non-tender abdomen Skin: warm Musculoskeletal: full muscle strength Neurologic: AAOx3 Psychiatric: interacting appropriately ICD10 Worksheet Patient Problems: Problems Problem Status Onset Atrial flutter Acute Elevated troponin Acute Hypoxemia Acute Hypoxemia Acute Pleural effusion, right Acute Recurrent right pleural effusion Acute
[2017-03-10] MEDS: IPRATROPIUM/ALBUTEROL 3 ML DEYVIAL IH PRN (13:20)
[2017-03-10] MEDS ORDERED: WARFARIN SODIUM 2.5 MG TAB PO SCH (16:00)
[2017-03-10] MEDS: ATORVASTATIN CALCIUM 20 MG TAB PO SCH (21:05)
[2017-03-10] MEDS: amLODIPine BESYLATE 5 MG TAB PO SCH (21:06)
[2017-03-10] MEDS: LATANOPROST 0.005% 2.5 ML OPHT DROPS EACHEYE SCH (21:07)
[2017-03-11 03:57] LABS: ABSOLUTE NRBC COUNT 0.04 10^3/uL (0-0.01); ADD DIFF? NO; ADD MORPH? NO; ADD SCAN? NO; ATYPICAL LYMPHOCYTE FLAG 0 (0-99); FRAGMENT RBC FLAG 20 (0-99); HEMATOCRIT 30.7 % (40.0-51.0); HEMOGLOBIN 9.4 g/dL (13.7-17.5); LEFT SHIFT FLG 20 (0-99); LIPEMIA HEMOLYSIS FLAG 80 (0-99); MEAN CELL HEMOGLOBIN 26.8 pg (27.9-34.1); MEAN CELL HEMOGLOBIN CONCENTR. 30.6 g/dL (32.4-36.7); MEAN CELL VOLUME 87.5 fL (81.5-99.8); MEAN PLATELET VOLUME 10.7 fL (8.7-11.7); NRBC-AUTO% 0.4 % (0.0-0.2); PLATELET CLUMPS FLAG 10 (0-99); PLATELET COUNT 287 10^3/uL (150-400); RED BLOOD CELL COUNT 3.51 10^6/uL (4.40-6.38); RED CELL DISTRIBUTION WIDTH 17.8 % (11.5-15.2)
[2017-03-11 04:08] LABS: INR 2.46 (0.83-1.16); PROTIME(PATIENT) 26.9 SEC (12.0-15.0)
[2017-03-11 04:33] LABS: ANION GAP 7 mEq/L (8-16); CALCIUM 9.3 mg/dL (8.5-10.4); CARBON DIOXIDE 31 mEq/l (22-31); CHLORIDE 97 mEq/L (97-110); CREATININE 0.7 mg/dL (0.7-1.3); GLOMERULAR FILTRATION RATE > 60; GLUCOSE 100 mg/dL (70-100); POTASSIUM 3.6 mEq/L (3.5-5.2); SODIUM 135 mEq/L (134-144)
[2017-03-11] MEDS: IPRATROPIUM/ALBUTEROL 3 ML DEYVIAL IH PRN ×4 (05:44→20:50)
[2017-03-11] MEDS: PIPERACILLIN/TAZO 3.375 GM/DEX 50 ML IV SCH ×3 (06:20→19:19)
[2017-03-11] MEDS: DILTIAZEM CD 180 MG CAP PO SCH (08:55)
[2017-03-11] MEDS ORDERED: FUROSEMIDE 20 MG/2 ML VIAL IVP ONE (10:04)
[2017-03-11] MEDS ORDERED: DILTIAZEM 125 MG in D5W 125 ML IV SCH (10:15)
[2017-03-11] MEDS ORDERED: DILTIAZEM 25 MG/5 ML VIAL IVP SCH (10:15)
[2017-03-11] MEDS ORDERED: morphINE 10 MG/0.5 ML UDSYR PO PRN (10:27)
--- NOTE | 2017-03-11 10:34 | HOSPPROG ---
Hospitalist Progress Note Assessment/Plan: 76 yo male with aggressive chest malignancy from unknown primary, returns to hospital with increasing shortness of breath and concern for post-obstructive pneumonia not responding to Levaquin. This am, he is in respiratory distress with increased O2 requirements. Acute on chronic hypoxemic respiratory failure - On 2 LPM at baseline, increased O2 requirement overnight, now on 7 LPM. Suspect developing pulmonary edema 2/2 rapid a fib. Also consider pneumonitis from Keytruda, though clinically pt appears wet. S/P thora with 800 cc's off left side 03/08, right side without drainable fluid, just necrotic / atelectatic lung, which is completely opacified on CXR. Scouting u/s this am neg for drainable effusion. -stat CXR done - interstitial edema of left lung, right lung remains completely opacified -IV Lasix now, heart rate control as below -consider dexamethasone if he doesn't respond to diuretic for possibility of keytruda induced pneumonitis -cont O2, atbx -no indication for repeat thora A fib with RVR - poor rate control this am, likely contributing to HF symptoms this am. Increased dilt to 360 daily on admission. -continue max dose dilt, transfer to SDU for IV dilt (received bolus, did not require drip) -add oral digoxin -INR now therapeutic, pharmacy dosing coumadin Post-obstructive PNA - palliative radiation x2 txs, started friday, for right bronchus obstruction -not stable for transfer to [facility] for radiation today -cont Zosyn, follow labs Aggressive chest malignancy - ?pleural based vs bone or GI primary. S/P FOLFOX , now on 2nd line Keytruda as of 02/21, currently held. Had pleurex catheter in past and is s/p VATS x2. Case discussed with Oncology. -cont radiation as condition tolerates, cancelled today due to deteriorating condition, will resume tomorrow -planning for repeat PET -palliative care consult today, pt and have discussed hospice Anemia - Likely 2/2 chemo, no transfusion requirements today Hyponatremia - Resolved, follow Code status - DNR. Palliative care consult planned for today Dispo - cont inpt, transfer to SDU today for IV dilt and cardiac monitoring. Resume radiation at [facility] tomorrow am if stable and can return to after that. Subjective: Pt has increased WOB, SOB this am. Feels like he has fluid in his lungs. HR increased to 140's. No fevers. Cough is the same. He later reports that his O2 nasal cannula came off during the night. Objective: Vital Signs Temp Pulse Resp BP Pulse Ox 35.8 C L 127 H 24 H 108/86 H 92 03/11/17 09:08 03/11/17 09:32 03/11/17 09:32 03/11/17 09:08 03/11/17 09:32 Microbiology 03/08/17 11:49 Gram Stain - Final Thoracic Fluid - Aspirate Laboratory Results 03/11/17 03:35 03/11/17 03:35 03/10/17 03/11/17 03/12/17 05:59 05:59 05:59 Intake Total 2395 850 200 Output Total 1 Balance 2395 849 200 PT 26.9 SEC (12.0-15.0) H 03/11/17 03:35 INR 2.46 (0.83-1.16) H 03/11/17 03:35 - Physical Exam Constitutional: chronically ill appearing Eyes: PERRL Ears, Nose, Mouth, Throat: moist mucous membranes Cardiovascular: irregularly irregular, tachycardia Respiratory: inspiratory crackles, respiratory distress, other (crackles on left , diminished on left) Gastrointestinal: normoactive bowel sounds, soft, non-tender abdomen Skin: warm Musculoskeletal: generalized weakness Neurologic: AAOx3 Psychiatric: interacting appropriately ICD10 Worksheet Patient Problems: Problems Problem Status Onset Palliative care encounter Acute Atrial flutter Acute Elevated troponin Acute Hypoxemia Acute Hypoxemia Acute Pleural effusion, right Acute Recurrent right pleural effusion Acute
[2017-03-11] MEDS ORDERED: POTASSIUM CL 20 MEQ TAB PO ONE (10:38)
[2017-03-11] MEDS: DIGOXIN 125 MCG TAB PO SCH (11:04)
[2017-03-11] MEDS: PRESERVISION AREDS2 FORMULA EYE VIT 1 EACH PO SCH ×2 (11:53→22:16)
[2017-03-11] MEDS: OMEGA-3 FATTY ACIDS 1,000 MG CAP PO SCH (11:53)
[2017-03-11] MEDS: FOLIC ACID 1 MG TAB PO SCH (11:53)
[2017-03-11] MEDS ORDERED: WARFARIN SODIUM 5 MG TAB PO SCH ×2 (15:25→16:00)
--- NOTE | 2017-03-11 15:36 | SOAPPROG ---
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 He is much better when seen this afternoon. In retrospect, the exacerbation of his repiratory status may have been due to his nasal canula coming off overnight. Patient began palliative XRT on 03/09 in attempt to open up airway over time and relieve atelectasis. It was held today, but will resume tomorrow. This will likely take several days to be effective. Appreciate Radiation Oncology assistance. He continues on Zosyn given possible component of post obstructive PNA. Goals of care reviewed with patient and . He confirms his wish for DNR status should his condition worsen. He is due for Pembrolizumab this Friday. This will need to be delayed with plan to resume as outpatient once he is discharged. Plan d/w patient and . Their questions were answered. Plan d/w nursing. 03/10/17 09:22 03/11/17 15:32 03/11/17 15:37 Subjective: Transferred to ICU this AM. Better now. at bedside. Objective: Vital Signs Temp Pulse Resp BP Pulse Ox 36.4 C 105 H 18 116/61 94 03/11/17 11:51 03/11/17 12:18 03/11/17 11:51 03/11/17 11:51 03/11/17 11:51 Microbiology 03/08/17 11:49 Gram Stain - Final Thoracic Fluid - Aspirate Body Fluid Culture - Final Laboratory Results 03/11/17 03:35 03/11/17 03:35 03/10/17 03/11/17 03/12/17 05:59 05:59 05:59 Intake Total 2395 850 200 Output Total 1 Balance 2395 849 200 PT 26.9 SEC (12.0-15.0) H 03/11/17 03:35 INR 2.46 (0.83-1.16) H 03/11/17 03:35 - Time Spent With Patient Time Spent With Patient: 25 minutes Physical Exam - Physical Exam General Appearance: alert, no apparent distress Respiratory: other (Decreased BS Right hemithorax) Abdomen: non-tender, soft Neuro/Psych: alert, normal mood/affect ICD10 Worksheet Patient Problems: Problems Problem Status Onset Atrial flutter Acute Elevated troponin Acute Hypoxemia Acute Hypoxemia Acute Pleural effusion, right Acute Recurrent right pleural effusion Acute
--- NOTE | 2017-03-11 15:38 | ASMTCMCOM ---
CM Note CM Note Notes: Patient transferred from to ICU today d/t increased 02 requirements. Palliative care team met with patient and who expressed their desires to pursue treatment for his cancer. Per initial PT/OT evals, patient will need home care if he returns home. CM will follow for discharge planning. Date Signed: 03/11/2017 03:38 PM Electronically Signed By:Maria Elena Eugene RN
--- NOTE | 2017-03-11 17:08 | PDPCPN ---
Palliative Care Progress Note Assessment/Plan: Referring provider: Dr Arango Reason for consult: Complex medical decision making Symptom control HPI: Dwayne Navarrete (Jerry) is a 76 yo male with pmh aggressive chest malignancy with unknown primary admitted to the hospital for increasing shortness of breath 2/2 obstructive PNA. Started on antibiotics but difficult to treat due to obstruction. Also started on radiation to help shrink the tumor. Has received chemo with progression of disease recently changed to immunotherapy. Hospitalization complicated by worsening of resp status. Palliative care consulted for complex medical decision making. Met with Cory and his Re at the bedside this afternoon. Cory still has hope the oncology treatments will work to improve his life. He states he hasn't had what he considers a good day since August. He feels the chemo has weakened him and made him just fatigued. He wants to be able to increase his stamina and do more things instead of "just lying in bed". He is hoping the new treatment and radiation will work to reduce his symptom burden. He feels quality of life means being able to spend time with Re and it doesn't matter where he is. Assessment: Physical: - Pain: none - tylenol PRN - Dyspnea: severe at times - on lasix and nebs - oxygen as needed - start roxanol 2-5mg PO Q2hr PRN - constipation - at risk if on opiates. - senna and colace daily while on opiates Emotional/psychological: doing ok and supported by [facility] Planning: Is patient decisional?: Yes Code Status: DNR POA: Re is MDPOA. Plan: Wants to continue with oncology treatment in hopes it will give him more symptom control and increase in quality of life. He remains DNR. Subjective: I'm feeling better Objective: Social History: to Re, no children. Was born in [place]. Enjoys [employer] and traveling around the world Medication list reviewed ROS: General: fatigue ENT: negative Resp: dyspnea, cough GI: negative : negative MS: negative Skin: negative Neuro:negative Psych: negative Functional assessment: PPS: 60% Functional status: independent Vital Signs Temp Pulse Resp BP Pulse Ox 36.5 C 97 18 121/69 H 92 03/11/17 16:35 03/11/17 16:35 03/11/17 16:35 03/11/17 16:35 03/11/17 16:35 Microbiology 03/08/17 11:49 Gram Stain - Final Thoracic Fluid - Aspirate Body Fluid Culture - Final Laboratory Results 03/11/17 03:35 03/11/17 03:35 03/10/17 03/11/17 03/12/17 05:59 05:59 05:59 Intake Total 2395 850 200 Output Total 1 Balance 2395 849 200 PT 26.9 SEC (12.0-15.0) H 03/11/17 03:35 INR 2.46 (0.83-1.16) H 03/11/17 03:35 Physical Exam - Physical Exam General Appearance: alert, no apparent distress Respiratory: decreased breath sounds, No respiratory distress, No accessory muscle use Skin: normal color, warm/dry Extremities: No pedal edema Neuro/Psych: alert, oriented x 3 ICD10 Worksheet Patient Problems: Problems Problem Status Onset Palliative care encounter Acute Atrial flutter Acute Elevated troponin Acute Hypoxemia Acute Hypoxemia Acute Pleural effusion, right Acute Recurrent right pleural effusion Acute - ICD10 Problem Qualifiers (1) Palliative care encounter
[2017-03-11] MEDS: ACETYLCYSTEINE 20% IH/PO 30 ML VIAL IH SCH (20:50)
--- NOTE | 2017-03-11 21:13 | GCON ---
[f rep st] CONSULTATION PULMONARY CRITICAL CARE CONSULTATION DATE OF CONSULTATION: 03/11/2017 REASON FOR CONSULTATION: Acute respiratory failure in a patient with metastatic carcinoma to the rig ht lung. HISTORY: The patient is a 76-year-old gentleman who was transferred from [facility] [place] earlier today for i ncreased shortness of breath and increased oxygen requirements. He became dyspneic and tachypneic wi th oxygen requirement increasing from 2 to 6 L. He is currently on 8 L. He has severe underlying maura ng disease with essentially a destroyed and nonfunctional right lung that has gotten progressively wo rse over the last 5 months. In September, he underwent a VATS procedure with decortication. He had sign ificant pleural involvement at that time. Pathology eventually was felt to be most consistent with a n adenocarcinoma of GI or pancreatic primary, with significant metastatic disease and progressive patience truction on the right side. He had a PleurX catheter for a while but pleural effusion on the right s debra resolved. Imaging of the right chest over the last several weeks has shown atelectasis and destr uction/obstruction of the right lung. There is no pleural fluid in the right chest. He did have 800 cc of fluid removed from the left chest several days ago. He is being treated for a postobstructive pneumonia. He does have some cough and mucus but is having a hard time bringing up and clearing the mucus. He currently denies significant shortness of breath. He does note some pulmonary congestion. He catherine ears quite weak with edema of the lower extremities. Chest x-rays from today and the last several da ys were reviewed. Prior to today, he had some aeration in the upper right lung which was fairly mini mal. Today's film shows essentially no significant aeration. The left lung is relatively clear, wit hout obvious infiltrate, atelectasis, pneumonia, pneumonitis, or pulmonary edema. PAST MEDICAL HISTORY: Remarkable for the malignancy as outlined above. That is the main issue. He is undergoing radiation therapy and has had chemotherapy. This has included Folfox and pembrolizumab . Other medical problems include systemic hypertension, atrial fibrillation, glaucoma and macular de generation. PAST SURGICAL HISTORY: He has had bilateral VATS procedures and arthroplasty of the knees. SOCIAL HISTORY: He did smoke cigarettes in the past. Significant alcohol is negative. He is marrie d. Retired from [employer]. FAMILY HISTORY: Negative/noncontributory. REVIEW OF SYSTEMS: A 10-point Review of Systems is negative except as mentioned above. PHYSICAL EXAMINATION: GENERAL: Reveals a chronically ill-appearing gentleman who is somewhat tachyp neic. An oxy mask is in place. He denies pain. VITAL SIGNS: Blood pressure is 125/65, heart rate 95 and irregular. Respiratory rate is 25. He is on 8 L. He is afebrile. HEENT: Unremarkable for lymphadenopathy or thyromegaly. There appears to be some jugular venous distention. CHEST: Markedl y decreased breath sounds on the right side. Soft rub cannot be excluded. There are some central rh onchi best heard on the left. There are no significant rales. There is no evidence of consolidation on the left. HEART: Irregular. Heart tones are somewhat distant. Systolic murmur is present. AB DOMEN: Soft and nontender. Bowel sounds are diminished but present. He is having bowel movements. EXTREMITIES: Remarkable for 1 to 2+ edema. NEUROLOGIC: Intact. RADIOLOGIC STUDIES: As outlined above. LABORATORY DATA: White blood cell count is 9900, hematocrit 30, platelets 287,000. INR on Coumadin is therapeutic at 2.46. Basic metabolic panel is within normal limits. Potassium is 3.6. Sodium is 135. Urine Legionella is negative. Cytologies from the left chest are pending. Digoxin 2 days ago was 1.1. ASSESSMENT: 1. Acute respiratory failure on chronic respiratory failure. This is in large part secondary to his destroyed and essentially nonfunctional right lung. He may have a postobstructive pneumonia. I thi nk his increased dyspnea at this point could be secondary to little pulmonary reserve and mucus in th e airways with some variable mucous plugging. A component of subclinical congestive heart failure/pu lmonary edema on the left may be playing a role, as most of his cardiac output is going through the l eft lung at this point. However, chest x-ray does not show obvious pulmonary edema. He did have an effusion removed from the left side several days ago. Pneumonitis seems unlikely, although he has be en on chemotherapy that can induce a diffuse pneumonitis. He has received Lasix earlier today. He i s on Zosyn for the possible post obstructive pneumonia. Mucomyst will be added to his regimen. Bron choscopy can be considered. 2. 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 3. The patient is do not resuscitate per his wishes. He has been seen by Palliative Care. Oncology is following and is recommending continued palliative treatment with radiation therapy and chemother apy if possible. RECOMMENDATIONS: Mucomyst will be added to his regimen. I will follow the patient with you. If sec retions increase, bronchoscopy can be considered. Continued antibiotics, treatment with narcotics fo r dyspnea, bronchopulmonary therapies, and rate control for atrial fibrillation is recommended. A re peat chest x-ray will be obtained in the morning. Further Lasix can be considered at that time. Further plans and recommendations will be made based on his progress over the next 12-24 hours. /[id number]/[id number]
[2017-03-11] MEDS: amLODIPine BESYLATE 5 MG TAB PO SCH (22:13)
[2017-03-11] MEDS: LATANOPROST 0.005% 2.5 ML OPHT DROPS EACHEYE SCH (22:14)
[2017-03-11] MEDS: ATORVASTATIN CALCIUM 20 MG TAB PO SCH (22:14)
[2017-03-12] MEDS: PIPERACILLIN/TAZO 3.375 GM/DEX 50 ML IV SCH ×4 (00:09→19:13)
[2017-03-12] MEDS: ACETYLCYSTEINE 20% IH/PO 30 ML VIAL IH SCH ×5 (01:02→22:05)
[2017-03-12] MEDS: IPRATROPIUM/ALBUTEROL 3 ML DEYVIAL IH PRN ×4 (05:55→22:05)
[2017-03-12 06:22] LABS: ANION GAP 7 mEq/L (8-16); CALCIUM 9.4 mg/dL (8.5-10.4); CARBON DIOXIDE 34 mEq/l (22-31); CHLORIDE 96 mEq/L (97-110); CREATININE 0.6 mg/dL (0.7-1.3); GLOMERULAR FILTRATION RATE > 60; GLUCOSE 99 mg/dL (70-100); POTASSIUM 3.8 mEq/L (3.5-5.2); SODIUM 137 mEq/L (134-144)
[2017-03-12 06:23] LABS: INR 2.97 (0.83-1.16); PROTIME(PATIENT) 31.3 SEC (12.0-15.0)
[2017-03-12] MEDS: FOLIC ACID 1 MG TAB PO SCH (07:44)
[2017-03-12] MEDS: PRESERVISION AREDS2 FORMULA EYE VIT 1 EACH PO SCH ×2 (07:44→21:01)
[2017-03-12] MEDS: DILTIAZEM CD 180 MG CAP PO SCH (07:44)
[2017-03-12] MEDS: OMEGA-3 FATTY ACIDS 1,000 MG CAP PO SCH (07:45)
[2017-03-12] MEDS: DIGOXIN 125 MCG TAB PO SCH (10:31)
--- NOTE | 2017-03-12 12:08 | SOAPPROG ---
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 Patient began palliative XRT on 03/09 in attempt to open up airway over time and relieve atelectasis.He will resume XRT today. This will likely take several days to be effective. Appreciate Radiation Oncology assistance. He continues on Zosyn given possible component of post obstructive PNA. Goals of care have been reviewed with patient and . He confirms his wish for DNR status should his condition worsen. He has met with the palliative care service. He is due for Pembrolizumab this Friday. This will need to be delayed with plan to resume as outpatient once he is discharged. Plan d/w patient. Subjective: Feels better. Continues to require O2, but much less work of breathing. Radiation due to resume today. Objective: Vital Signs Temp Pulse Resp BP Pulse Ox 36.6 C 89 18 115/68 95 03/12/17 07:36 03/12/17 11:10 03/12/17 11:10 03/12/17 07:36 03/12/17 11:10 Microbiology 03/08/17 11:49 Gram Stain - Final Thoracic Fluid - Aspirate Body Fluid Culture - Final Laboratory Results 03/11/17 03:35 03/12/17 05:50 03/11/17 03/12/17 03/13/17 05:59 05:59 05:59 Intake Total 850 420 Output Total 1 625 Balance 849 -205 PT 31.3 SEC (12.0-15.0) H 03/12/17 05:50 INR 2.97 (0.83-1.16) H 03/12/17 05:50 - Time Spent With Patient Time Spent With Patient: 20 minutes Physical Exam - Physical Exam General Appearance: alert, no apparent distress Respiratory: other (Decreased BS Right hemithorax.) Neuro/Psych: alert, normal mood/affect ICD10 Worksheet Patient Problems: Problems Problem Status Onset Palliative care encounter Acute Atrial flutter Acute Elevated troponin Acute Hypoxemia Acute Hypoxemia Acute Pleural effusion, right Acute Recurrent right pleural effusion Acute
--- NOTE | 2017-03-12 12:23 | ASMTCMCOM ---
CM Note CM Note Notes: Met with patient to discuss POC when medically ready to dc. He has scheduled radiation treatment today at 1pm at [facility]. Call to [facility], confirmed pickup for today at 12:30 and through the . stepped away from bedside. Per patient they are planning to put in stairlifters to help patient with mobilty in home. Patient states he is optimistic about his response to treatment but reports he feels his care team is pesimistic. CM to follow for needs. Date Signed: 03/12/2017 12:22 PM Electronically Signed By:Nicole Person RN
--- NOTE | 2017-03-12 13:00 | PDINTPN ---
Lease Administration Analyst Progress Note Assessment/Plan: Assessment: Metastatic adenocarcinoma to the right chest. Destroyed right lung with obstruction/pleural disease/necrosis, etc. Acute respiratory failure, on top of chronic failure secondary to the above. This may have been related to increased rhonchi, now improved with acetylcysteine. A component of left lung pulmonary edema may be present as all cardiac output going through the left?. Progressive decreased aeration from obstruction in the right upper lung may also be playing a role. Clinically improved today although remains on higher flow oxygen. AFib Anticoagulation: INR remains therapeutic on Coumadin. Advanced directives: DNR. Plan: Resume radiation treatments today. For chemotherapy on Friday. Continue bronchopulmonary therapies and acetylcysteine nebs. Continue care in the step-down unit today. Possibly back to [address] [place] [address] tomorrow. I will continue intermittent Lasix diuresis: 20 mg IV today post radiation. Follow lab and chest x-ray intermittently. 30 minutes of critical care time spent directly with the patient today. Discussed issues with the patient and his , hospitalist, nursing, and the ICU multi disciplinary team. Subjective: Up in chair. Feels better. Much less congestion this morning. Anxious to continue radiation treatments. Objective: Vital Signs Temp Pulse Resp BP Pulse Ox 36.8 C 97 16 120/68 94 03/12/17 12:00 03/12/17 12:00 03/12/17 12:00 03/12/17 12:00 03/12/17 12:00 Microbiology 03/08/17 11:49 Gram Stain - Final Thoracic Fluid - Aspirate Body Fluid Culture - Final Laboratory Results 03/11/17 03:35 03/12/17 05:50 03/11/17 03/12/17 03/13/17 05:59 05:59 05:59 Intake Total 850 420 Output Total 1 625 Balance 849 -205 PT 31.3 SEC (12.0-15.0) H 03/12/17 05:50 INR 2.97 (0.83-1.16) H 03/12/17 05:50 CXR: No change on right, no aeration at the right apex. Increased haziness at the left base: Question mild pulmonary edema there. Physical Exam - Physical Exam General Appearance: alert, no apparent distress EENT: PERRL/EOMI, other (On OxyMask at 8 L) Neck: normal inspection (Mild jugular venous distension) Respiratory: decreased breath sounds (Absent on right. Fairly clear on the left. Few rales at the base.), No normal breath sounds, No rhonchi (Resolved this morning compared to last night.), No wheezing Cardiac/Chest: tachycardia (Atrial fibrillation present), irregularly irregular Abdomen: normal bowel sounds, non-tender, soft Skin: normal color, warm/dry Extremities: pedal edema Neuro/Psych: no motor/sensory deficits (Moves all extremities equally), No cognition abnormalities ICD10 Worksheet Patient Problems: Problems Problem Status Onset Hypoxemia Acute Recurrent right pleural effusion Acute Atrial flutter Acute Pleural effusion, right Acute Hypoxemia Acute Elevated troponin Acute Palliative care encounter Acute
[2017-03-12] MEDS ORDERED: FUROSEMIDE 20 MG/2 ML VIAL IVP ONE (13:02)
[2017-03-12] MEDS ORDERED: WARFARIN SODIUM 1 MG TAB PO ONE (16:00)
--- NOTE | 2017-03-12 17:38 | HOSPPROG ---
Hospitalist Progress Note Assessment/Plan: * Adenocarcinoma of GI primary with extensive right chest metastasis * Tumor obstruction of right lung with complete obliteration -no evidence of pleural effusion -palliative XRT to relieve obstruction -continue chemo per onc * Possible post-obstructive PNA -Zosyn * Acute on chronic respiratory failure -baseline 2-3L O2 * Afib with RVR -diltiazem + digoxin -still rapid - will add low dose metoprolol -therapeutic on warfarin Subjective: no new complalints. Objective: Vital Signs Temp Pulse Resp BP Pulse Ox 36.5 C 106 H 18 109/54 L 97 03/12/17 16:00 03/12/17 17:15 03/12/17 17:15 03/12/17 16:00 03/12/17 17:15 Microbiology 03/08/17 11:49 Gram Stain - Final Thoracic Fluid - Aspirate Body Fluid Culture - Final Laboratory Results 03/11/17 03:35 03/12/17 05:50 03/11/17 03/12/17 03/13/17 05:59 05:59 05:59 Intake Total 850 420 615 Output Total 1 625 1000 Balance 849 -205 -385 PT 31.3 SEC (12.0-15.0) H 03/12/17 05:50 INR 2.97 (0.83-1.16) H 03/12/17 05:50 CXR viewed, my personal interpretation is - complete obliteration of right lung Chest US - no pleural fluid - Physical Exam Constitutional: no apparent distress, appears nourished, not in pain Cardiovascular: regular rate and rhythym, no murmur, rub, or gallop Respiratory: no respiratory distress, no rales or rhonchi, clear to auscultation Gastrointestinal: normoactive bowel sounds, soft, non-tender abdomen, no palpable masses Skin: no rashes or abrasions, no fluctuance, no induration Neurologic: AAOx3, sensation intact bilaterally Psychiatric: interacting appropriately, not anxious, not encephalopathic, thought process linear ICD10 Worksheet Patient Problems: Problems Problem Status Onset Palliative care encounter Acute Atrial flutter Acute Elevated troponin Acute Hypoxemia Acute Hypoxemia Acute Pleural effusion, right Acute Recurrent right pleural effusion Acute
[2017-03-12] MEDS: METOPROLOL TARTRATE 25 MG TAB PO SCH (18:15)
[2017-03-12] MEDS: ATORVASTATIN CALCIUM 20 MG TAB PO SCH (21:00)
[2017-03-12] MEDS: LATANOPROST 0.005% 2.5 ML OPHT DROPS EACHEYE SCH (21:01)
[2017-03-13] MEDS: PIPERACILLIN/TAZO 3.375 GM/DEX 50 ML IV SCH ×4 (00:09→17:25)
[2017-03-13] MEDS: ALBUTEROL 3 ML DEYVIAL IH PRN (03:40)
[2017-03-13 05:51] LABS: ABSOLUTE NRBC COUNT 0.08 10^3/uL (0-0.01); ADD DIFF? YES; ADD MORPH? NO; ADD SCAN? NO; ATYPICAL LYMPHOCYTE FLAG 0 (0-99); FRAGMENT RBC FLAG 20 (0-99); HEMATOCRIT 31.5 % (40.0-51.0); HEMOGLOBIN 9.4 g/dL (13.7-17.5); LEFT SHIFT FLG 20 (0-99); LIPEMIA HEMOLYSIS FLAG 70 (0-99); MEAN CELL HEMOGLOBIN 26.4 pg (27.9-34.1); MEAN CELL HEMOGLOBIN CONCENTR. 29.8 g/dL (32.4-36.7); MEAN CELL VOLUME 88.5 fL (81.5-99.8); MEAN PLATELET VOLUME 10.7 fL (8.7-11.7); NRBC-AUTO% 0.9 % (0.0-0.2); PLATELET CLUMPS FLAG 0 (0-99); PLATELET COUNT 310 10^3/uL (150-400); RED BLOOD CELL COUNT 3.56 10^6/uL (4.40-6.38); RED CELL DISTRIBUTION WIDTH 17.8 % (11.5-15.2)
[2017-03-13] MEDS: IPRATROPIUM/ALBUTEROL 3 ML DEYVIAL IH PRN ×3 (06:00→16:09)
[2017-03-13] MEDS: ACETYLCYSTEINE 20% IH/PO 30 ML VIAL IH SCH ×3 (06:00→16:09)
[2017-03-13 06:02] LABS: INR 4.62 (0.83-1.16); PROTIME(PATIENT) 44.6 SEC (12.0-15.0)
[2017-03-13 06:11] LABS: ANION GAP 3 mEq/L (8-16); CALCIUM 9.2 mg/dL (8.5-10.4); CARBON DIOXIDE 38 mEq/l (22-31); CHLORIDE 95 mEq/L (97-110); CREATININE 0.6 mg/dL (0.7-1.3); GLOMERULAR FILTRATION RATE > 60; GLUCOSE 88 mg/dL (70-100); POTASSIUM 3.4 mEq/L (3.5-5.2); SODIUM 136 mEq/L (134-144)
[2017-03-13 06:23] LABS: PLATELET ESTIMATE ADEQUATE (ADEQ)
[2017-03-13] MEDS: METOPROLOL TARTRATE 25 MG TAB PO SCH ×2 (08:52→21:36)
[2017-03-13] MEDS: FOLIC ACID 1 MG TAB PO SCH (08:52)
[2017-03-13] MEDS: OMEGA-3 FATTY ACIDS 1,000 MG CAP PO SCH (08:53)
[2017-03-13] MEDS: DILTIAZEM CD 180 MG CAP PO SCH (08:53)
[2017-03-13] MEDS: PRESERVISION AREDS2 FORMULA EYE VIT 1 EACH PO SCH ×2 (08:55→21:37)
[2017-03-13] MEDS ORDERED: FUROSEMIDE 20 MG/2 ML VIAL IVP ONE (10:48)
[2017-03-13] MEDS ORDERED: PROTOCOL POTASSIUM 1 DOSE MISC PRN (10:49)
[2017-03-13] MEDS: DIGOXIN 125 MCG TAB PO SCH (12:18)
--- NOTE | 2017-03-13 12:23 | PDINTPN ---
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 Destroyed right lung with obstruction/pleural disease/necrosis, etc. Acute respiratory failure, on top of chronic failure secondary to the above. This may have been related to increased secretions in part, now improved with acetylcysteine. A component of left lung pulmonary edema may be present as all cardiac output going through the left?. Progressive decreased aeration from obstruction in the right upper lung may also be playing a role. Clinically improved although remains on higher flow oxygen. AFib Anticoagulation: INR high therapeutic today: on Coumadin. Advanced directives: DNR. Plan: Resume radiation treatment today. For chemotherapy Friday per Onc. Continue bronchopulmonary therapies and acetylcysteine nebs. Hold Coumadin today, follow INR daily. Continue care in the step-down unit for now. Possibly back to [address] [place] [address] tomorrow. Repeat 20 mg of IV Lasix today. Follow daily weights. Follow lab and chest x-ray intermittently. 25 minutes of critical care time spent directly with the patient today. Discussed issues with the patient and his , hospitalist, nursing, and the ICU multi disciplinary team. Subjective: Doing okay. Somewhat weak. Mild shortness of breath. With less congestion. Did well with radiation yesterday. Objective: Vital Signs Temp Pulse Resp BP Pulse Ox 36.6 C 88 18 109/63 91 L 03/13/17 08:00 03/13/17 12:18 03/13/17 12:00 03/13/17 12:00 03/13/17 12:00 Laboratory Results 03/13/17 05:30 03/13/17 05:30 03/12/17 03/13/17 03/14/17 05:59 05:59 05:59 Intake Total 420 835 Output Total 625 1275 200 Balance -205 -440 -200 PT 44.6 SEC (12.0-15.0) H D 03/13/17 05:30 INR 4.62 (0.83-1.16) H 03/13/17 05:30 Laboratory Tests 03/13/17 03/13/17 05:30 05:30 PT 44.6 H D INR 4.62 H Calcium 9.2 CXR: No changes on the right with essentially total opacification. Some atelectasis in the retrocardiac area with haziness at the left base probably representing a reaccumulating effusion. Physical Exam - Physical Exam General Appearance: alert, no apparent distress EENT: PERRL/EOMI, other ( OxyMask in place) Neck: normal inspection ( mild JVD) Respiratory: decreased breath sounds ( on the right side with dullness, unchanged. The left is somewhat coarse, clear. No rhonchi), No rhonchi, No wheezing Cardiac/Chest: irregularly irregular ( AF at approximately 85) Abdomen: normal bowel sounds, non-tender, soft Skin: normal color, warm/dry Neuro/Psych: no motor/sensory deficits, No cognition abnormalities ICD10 Worksheet Patient Problems: Problems Problem Status Onset Hypoxemia Acute Recurrent right pleural effusion Acute Atrial flutter Acute Pleural effusion, right Acute Hypoxemia Acute Elevated troponin Acute Palliative care encounter Acute
--- NOTE | 2017-03-13 14:51 | SOAPPROG ---
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 Patient began palliative XRT on 03/09 in attempt to open up airway over time and relieve atelectasis. Continues to receive this daily. This will likely take several days to be effective. Appreciate Radiation Oncology assistance. He continues on Zosyn given possible component of post obstructive PNA. Goals of care have been reviewed with patient and . He confirms his wish for DNR status should his condition worsen. He has met with the palliative care service. He was due for Pembrolizumab this Friday. This will be delayed with plan to resume as outpatient once he is discharged. Plan d/w patient. Subjective: Overall feels somewhat better. Denies CP. Using face mask O2. Continues to receive daily XRT. Objective: Vital Signs Temp Pulse Resp BP Pulse Ox 36.6 C 88 18 109/63 91 L 03/13/17 08:00 03/13/17 12:18 03/13/17 12:00 03/13/17 12:00 03/13/17 12:00 Laboratory Results 03/13/17 05:30 03/13/17 05:30 03/12/17 03/13/17 03/14/17 05:59 05:59 05:59 Intake Total 420 835 Output Total 625 1275 200 Balance -205 -440 -200 PT 44.6 SEC (12.0-15.0) H D 03/13/17 05:30 INR 4.62 (0.83-1.16) H 03/13/17 05:30 - Time Spent With Patient Time Spent With Patient: 15 minutes Physical Exam - Physical Exam General Appearance: alert, no apparent distress EENT: PERRL/EOMI Respiratory: other (Decreased in entire Right hemiothorax.) Abdomen: non-tender, soft Neuro/Psych: alert, normal mood/affect ICD10 Worksheet Patient Problems: Problems Problem Status Onset Palliative care encounter Acute Atrial flutter Acute Elevated troponin Acute Hypoxemia Acute Hypoxemia Acute Pleural effusion, right Acute Recurrent right pleural effusion Acute
--- NOTE | 2017-03-13 18:08 | HOSPPROG ---
Hospitalist Progress Note Assessment/Plan: 76 yo M with adenocarcinoma of GI primary with extensive R chest mets presenting with worsening respiratory failure * Adenocarcinoma of GI primary with extensive right chest metastasis * Tumor obstruction of right lung with complete obliteration,with associated necrosis and destruction of right lung -continued with palliative xrt, repeat cxr personally reviewed without any change, oncology following * Possible post-obstructive PNA -Zosyn * Acute on chronic respiratory failure -baseline 2-3L O2, now on 8L * Afib with RVR -diltiazem + digoxin+ metop -therapeutic on warfarin IP status, remains high risk Care plan reviewed with Dr. Escobar and multidisciplinary care team on rounds. Subjective: no acute overnight events, patient continues to feel weak/sob Objective: Vital Signs Temp Pulse Resp BP Pulse Ox 36.7 C 90 20 101/63 92 03/13/17 16:00 03/13/17 16:09 03/13/17 16:09 03/13/17 16:00 03/13/17 16:09 Laboratory Results 03/13/17 05:30 03/12/17 03/13/17 03/14/17 05:59 05:59 05:59 Intake Total 420 835 600 Output Total 625 1275 200 Balance -205 -440 400 PT 44.6 SEC (12.0-15.0) H D 03/13/17 05:30 INR 4.62 (0.83-1.16) H 03/13/17 05:30 awake alert nad anicteric op clear irreg irreg distant dec bs, scattered wheeze and rhonchi soft nt nd no cce warm dry well perfused oriented appropriate ICD10 Worksheet Patient Problems: Problems Problem Status Onset Hypoxemia Acute Recurrent right pleural effusion Acute Atrial flutter Acute Pleural effusion, right Acute Hypoxemia Acute Elevated troponin Acute Palliative care encounter Acute
[2017-03-13 18:12] LABS: POTASSIUM 3.2 mEq/L (3.5-5.2)
[2017-03-13] MEDS ORDERED: POTASSIUM CL 10 MEQ TAB PO ONE (18:40)
--- NOTE | 2017-03-13 19:53 | PDPCPN ---
Palliative Care Progress Note Assessment/Plan: HPI: Dwayne Navarrete (Jerry) is a 76 yo male with pmh aggressive chest malignancy with unknown primary admitted to the hospital for increasing shortness of breath 2/2 obstructive PNA. Started on antibiotics but difficult to treat due to obstruction. Also started on radiation to help shrink the tumor. Has received chemo with progression of disease recently changed to immunotherapy. Hospitalization complicated by worsening of resp status. Palliative care consulted for complex medical decision making. ariela seen this Am, feeling about the same for shortness of breath. Discussed using roxanol for symptom relief. His mid level practitioner was also at bedside providing support. Assessment: Physical: - Pain: none - tylenol PRN - Dyspnea: severe at times - on lasix and nebs - oxygen as needed - roxanol 2-5mg PO Q2hr PRN - constipation - at risk if on opiates. - senna and colace daily while on opiates Emotional/psychological: doing ok and supported by Advanced Care Planning: Is patient decisional?: Yes Code Status: DNR POA: Re is MDPOA. Plan: Wants to continue with oncology treatment in hopes it will give him more symptom control and increase in quality of life. Subjective: i feel the same Objective: Vital Signs Temp Pulse Resp BP Pulse Ox 36.7 C 90 20 101/63 92 03/13/17 16:00 03/13/17 16:09 03/13/17 16:09 03/13/17 16:00 03/13/17 16:09 Laboratory Results 03/13/17 05:30 03/13/17 17:30 03/12/17 03/13/17 03/14/17 05:59 05:59 05:59 Intake Total 420 835 600 Output Total 625 1275 200 Balance -205 -440 400 PT 44.6 SEC (12.0-15.0) H D 03/13/17 05:30 INR 4.62 (0.83-1.16) H 03/13/17 05:30 Physical Exam - Physical Exam General Appearance: alert, no apparent distress Respiratory: No respiratory distress, No accessory muscle use Skin: normal color, warm/dry Extremities: No pedal edema Neuro/Psych: alert, oriented x 3 ICD10 Worksheet Patient Problems: Problems Problem Status Onset Palliative care encounter Acute Atrial flutter Acute Elevated troponin Acute Hypoxemia Acute Hypoxemia Acute Pleural effusion, right Acute Recurrent right pleural effusion Acute - ICD10 Problem Qualifiers (1) Palliative care encounter
[2017-03-13] MEDS: LORazepam 1 MG TAB PO PRN (21:36)
[2017-03-13] MEDS: ATORVASTATIN CALCIUM 20 MG TAB PO SCH (21:37)
[2017-03-13 21:41] VITALS: BP 120/78; PULSE 110
[2017-03-13 22:01] VITALS: RESP 22; TEMP 98.7; O2SAT 94
--- NOTE | 2017-03-14 16:25 | ASDISCHSUM ---
Discharge Information Plan Status:Has needs-TBD Medically Cleared to Leave: Discharge Date:03/14/2017 05:02 AM CM D/C Disposition: ADT D/C Disposition: Projected Discharge Date:03/14/2017 05:02 AM Transportation at D/C: Discharge Delay Reason: Follow-Up Date:03/14/2017 05:02 AM Discharge Slot: Final Diagnosis: Placement Information Patient Contact Information Contact Name:ALEJANDRA Relationship: Address:[address] Work Phone: [facility]:[place] Alternate Phone: State/Zip Code:[place] [address] Email: Financial Information Financial Class: Primary Plan Desc:MEDICARE INPATIENT Primary Plan Number:[id number] Secondary Plan Desc:[facility] Secondary Plan Number:[id number] Assessment Information [facility] CM Progress Note CM Note CM Note Notes: Pt has malignancy in chest with no obvious primary per H&P. Pt had thoracentesis today. Pt may get a pleurex drain and will need HC RN if he does. C/M to follow. Date Signed: 03/08/2017 05:14 PM Electronically Signed By:Ana Shaw LCSW [facility] CM Progress Note CM Note CM Note Notes: Patient transferred from to ICU today d/t increased 02 requirements. Palliative care team met with patient and who expressed their desires to pursue treatment for his cancer. Per initial PT/OT evals, patient will need home care if he returns home. CM will follow for discharge planning. Date Signed: 03/11/2017 03:38 PM Electronically Signed By:Maria Elena Eugene RN [facility] CM Progress Note CM Note CM Note Notes: Met with patient to discuss POC when medically ready to dc. He has scheduled radiation treatment today at 1pm at [facility]. Call to [facility], confirmed pickup for today at 12:30 and through the . stepped away from bedside. Per patient they are planning to put in stairlifters to help patient with mobilty in home. Patient states he is optimistic about his response to treatment but reports he feels his care team is pesimistic. CM to follow for needs. Date Signed: 03/12/2017 12:22 PM Electronically Signed By:Nicole Person RN Intervention Information
--- NOTE | 2017-03-17 14:27 | PDDCSUM ---
Discharge Summary Discharge Summary: Dates of service 03/07-03/14/17 Patient at 5 am on the day of 03/14/17. Patient was rounded on by myself the day prior to expiring, but not seen the day of . consultations: oncology, critical care medicine procedures: thoracentesis, radiation Hospital course by problem: 76 yo M with adenocarcinoma of GI primary with extensive R chest mets presenting with worsening respiratory failure * Adenocarcinoma of GI primary with extensive right chest metastasis * Tumor obstruction of right lung with complete obliteration,with associated necrosis and destruction of right lung -palliative xrt performed and without any improvement * Possible post-obstructive PNA -Zosyn * Acute on chronic respiratory failure -baseline 2-3L O2, worsened secondary to above * Afib with RVR -diltiazem + digoxin+ metop+ warfarin Patient in the hospital, he was not seen the day he by this provider.
== END 2017-03-14 05:02 | disposition expired | DRG 180 ==
LOC: F1N 13:34 → F2N 03-11 11:25
PROVIDERS: ADMIT Internal Medicine; ATTEND Internal Medicine
PROC: 0W9B3ZX Drainage of Left Pleural Cavity, Percutaneous Approach, Diagnostic (ICD-10-PCS; principal; 2017-03-08)
DX: C78.01 Secondary malignant neoplasm of right lung (principal); J96.21 Acute and chronic respiratory failure with hypoxia; J90 Pleural effusion, not elsewhere classified; C26.9 Malignant neoplasm of ill-defined sites within the digestive system; J17 Pneumonia in diseases classified elsewhere; D64.81 Anemia due to antineoplastic chemotherapy; E87.1 Hypo-osmolality and hyponatremia; I48.91 Unspecified atrial fibrillation; E03.9 Hypothyroidism, unspecified; I10 Essential (primary) hypertension; Z79.01 Long term (current) use of anticoagulants; Z96.653 Presence of artificial knee joint, bilateral; Z87.891 Personal history of nicotine dependence; Z66 Do not resuscitate; Z51.5 Encounter for palliative care; Z92.3 Personal history of irradiation
CPT/HCPCS: 92610-GN; 97116-GP; 97162-GP; 97166-GO; 97535-GO; G8978-GP-CK; G8979-GP-CI; G8987-GO-CK; G8988-GO-CI; G8996-GN-CI; G8997-GN-CI; J1650; J1940; J2543